=== PATIENT | male | born 1955 | race Caucasian/White ===

== ENCOUNTER 2017-01-29 12:45 | Inpatient (IN) | payer BC ==
[~2017-01-29] VITALS: Ht 177.8 cm; Wt 80.0 kg
[~2017-01-29 12:45] MED LIST: BENZ100C97 PO; BUDE10.22 INH; CODE118S2 PO; HYDR-4246 PO; IBUP-2067 PO; IBUP200C62 PO; MINO100C2 PO; OMEG-15 PO; POLY17PO6 PO; TAMS-1 PO
--- OUTSIDE RECORDS SUMMARY | 2017-01-29 12:50 | XMS REPORT | Continuity of Care Document ---
Author Author [facility] Organization [facility] Address Unknown Phone Unavailable Care Team Providers Care Tobacco Blender Name Role Phone YOMAIRA RED Primary Care Physician [phone] Insurance Providers Guarantor Vinod Francois Address [address] [place] [address] C Email DENIED-16 [facility] Policy Number [id number] Subscriber's Name Tosha Francois Relationship 01 Spouse Chief Complaint and Reason for Visit Chief Complaint Cough,Fever,Flu,URI Reason for Visit Upper respiratory infection with cough and congestion Problems Active Problems Medical Problem Onset Date Status BPH (benign prostatic hyperplasia) Unknown Chronic Lymphoma of small bowel Unknown Acute Mass of small intestine Unknown Resolved Small bowel obstruction Unknown Resolved Past Problems Medical Problem Onset Date Dehydration Unknown Ileus Unknown Partial obstruction of small intestine Unknown Partial small bowel obstruction Unknown Upper respiratory infection with cough and congestion Unknown Medications Current Home Medications Medication Dose Units Route Directions Days Qty Instructions Start Date Benzonatate (Tessalon Perle) 100 Mg Capsule 100 Mg Oral Every 8 Hours for Cough 14 Days [address] David Brandon [employer] [facility] [address] [phone] 01/05/17 Budesonide/Formoterol Fumarate (Symbicort 80-4.5 Mcg Inhaler) 60 Puff/Inhaler Inhaler 2 Puff Inhalation Twice A Day as needed for Dyspepsia 10.2 Gram 09/02/16 Hydrocodone/Acetaminophen (Hemphill 5-325 Tablet) 5-325 Tablet 1-2 Tab Oral Every 5 Hours as needed for Pain 25 Tablet 10/22/16 Ibuprofen 200 Mg Capsule 2 Cap Oral Every 4 Hours as needed for Pain 10/15/16 Ibuprofen 600 Mg Tablet 600 Mg Oral Every 6 Hours as needed for Pain 10 Days 40 Tablet 10/22/16 Minocycline Hcl 100 Mg Capsule 100 Mg Oral Twice A Day 10 Days [address] David Brandon [employer] [facility] [address] [place] [address] 01/05/17 Nallen-3/Dha/Epa/Fish Oil (Fish Oil 500 Mg Softgel) 1 Each Capsule 1 Cap Oral Daily 10/15/16 Polyethylene Glycol 3350 (Miralax) 17 Gm Powd.pack 1 Packet Oral Daily 30 Packet 10/22/16 Promethazine Hcl/Codeine (Promethazine-Codeine Syrup) 118 Ml Syrup 5 Ml Oral Every Night Prn as needed for Cough 10 Days [address] David Brandon [employer] [facility] [address] [place] [address] 01/05/17 Tamsulosin Hcl (Flomax) 0.4 Mg Capsule 0.4 Mg Oral Bedtime Take 1 capsule, by mouth, one time a day at BEDTIME. 09/02/16 Past Home Medications Medication Directions Ordered Status Hydrocodone/Acetaminophen (Hemphill 5-325 Tablet) 5-325 Tablet, 1-2 Tab Oral Four Times Daily as needed for Pain 09/28/16 Discontinued Minocycline Hcl 100 Mg Capsule, 100 Mg Oral Twice A Day 01/05/17 Discontinued Social History Social History Problem Response Recorded Date/Time Onset Date Status Chewing Tobacco Status No 02/08/2013 12:29am Not Applicable Not Applicable Hx Substance Use No 10/17/2016 9:54am Not Applicable Not Applicable Hx Alcohol Use No 10/17/2016 9:54am Not Applicable Not Applicable Has the pt used tobacco in the last 12 months No 10/17/2016 9:54am Not Applicable Not Applicable Hospital Discharge Instructions No hospital discharge instructions. Plan of Care Discharge Date 01/05/17 5:05pm Disposition 01 DISCHARGED HOME, SELF-CARE Condition at Discharge Stable Instructions/Education Provided Fever in Adults (ED) Upper Respiratory Infection (ED) Acute Cough (ED) Prescriptions See Medication Section Referrals YOMAIRA RED Esther Address: [address] [address] Additional Instructions/Education Take minocycline as directed. Use promethazine with codeine at bedtime as needed for cough congestion. Take Tessalon Perles during daytime as needed for cough. Treat fevers as needed. Follow with primary care provider or if symptoms are worsening go to the emergency department. Functional Status No functional status results. Allergies, Adverse Reactions, Alerts Allergen Type Severity Reaction Status Last Updated NKDA Allergy Unknown Active 01/05/17 Immunizations Query Response on File Recorded Date/Time Hx Influenza Vaccination No 10/17/16 9:54am Hx Pneumococcal Vaccination No 10/17/16 9:54am Hx Influenza Vaccination No 10/17/16 9:54am Hx Tetanus Diptheria No 02/08/13 12:29am Influenza Vaccine Hx NONE 01/05/17 4:22pm Vital Signs Acute Vital Signs Vital Response Date/Time Temperature (Fahrenheit) 101.6 deg F (96.8 - 99.1) 01/05/2017 4:24pm Temperature (Calculated Celsius) 38.03194 degrees C (36.0 - 37.3) 01/05/2017 4:24pm Temperature Source Oral 10/22/2016 3:17pm Pulse Rate (adult) 104 bpm (60 - 100) 01/05/2017 4:24pm Respiratory Rate 16 breaths/min (10 - 20) 10/22/2016 3:17pm O2 Sat by Pulse Oximetry 95 % (90 - 100) 01/05/2017 4:24pm Oxygen Delivery Method Room Air 10/22/2016 3:17pm Oxygen Delivery Method Nasal Cannula 10/18/2016 4:13pm Oxygen Flow Rate 2.00 L/min 10/20/2016 3:14am Blood Pressure 118/71 mm Hg 01/05/2017 4:24pm Blood Pressure Source Automatic Cuff 10/22/2016 3:17pm Height (Feet) 5 feet 10/22/2016 9:46am Height (Inches) 69.20 inches 01/05/2017 4:24pm Weight (Kilograms) 89.300 kg 01/05/2017 4:24pm Body Mass Index (BMI) 28.0 01/05/2017 4:24pm Results Laboratory Results Test Name Result Units Flags Reference Collection Date/Time Result Date/ Time Comments White Blood Count 6.3 T/MM3 4.5-11.0 11/12/2016 11:11/12/2016 11: 29am Red Blood Count 4.81 M/MM3 4.50-5.90 11/12/2016 11:11/12/2016 11: 29am Hemoglobin 14.7 GM/DL 13.5-17.5 11/12/2016 11:11/12/2016 11:29am Hematocrit 45.1 % 41-53 11/12/2016 11:11/12/2016 11:29am Mean Corpuscular Volume 93.8 UM3 80-100 11/12/2016 11:11/12/2016 11:29am Mean Corpuscular Hemoglobin 30.6 UUG 26-34 11/12/2016 11:2016 11:29am Mean Corpuscular Hemoglobin Concent 32.6 GM/DL 31-37 11/12/2016 11:11/12/2016 11:29am RDW Standard Deviation 42.6 FL 36.9-50.2 11/12/2016 11:11/12/2016 11:29am Platelet Count 448 T/MM3 D H 130-400 11/12/2016 11:11/12/2016 11: 29am Mean Platelet Volume 8.6 UM3 L 9.4-12.4 11/12/2016 11:11/12/2016 11 :29am Neutrophils (%) (Auto) 60.9 % 33-66 11/12/2016 11:11/12/2016 11: 29am Lymphocytes (%) (Auto) 23.7 % 23-45 11/12/2016 11:11/12/2016 11: 29am Monocytes (%) (Auto) 7.0 % 0-9.0 11/12/2016 11:11/12/2016 11:29am Eosinophils (%) (Auto) 7.1 % H 0-4 11/12/2016 11:11/12/2016 11: 29am Basophils (%) (Auto) 1.0 % 0-2 11/12/2016 11:11/12/2016 11:29am Immature Granulocyte % (Auto) 0.3 % 0.0-0.5 11/12/2016 11:2016 11:29am Absolute Neutrophils (auto) 3.8 T/MM3 1.8-7.7 11/12/2016 11:2016 11:29am Absolute Lymphocytes (auto) 1.5 T/MM3 1-4.8 11/12/2016 11:2016 11:29am Absolute Monocytes (auto) 0.4 T/MM3 0-0.8 11/12/2016 11:2016 11:29am Absolute Eosinophils (auto) 0.5 T/MM3 0-0.5 11/12/2016 11:2016 11:29am Absolute Basophils (auto) 0.1 T/MM3 0-0.2 11/12/2016 11:2016 11:29am Absolute Immature Granulocyte (auto 0.02 T/MM3 0.00-0.03 11/12/2016 11: 11/12/2016 11:29am Icterus Index < 2 0-7 11/12/2016 11:11/12/2016 11:26am Chemistry Specimen Hemolysis < 15 0-25 11/12/2016 11:11/12/2016 11:26am 0-25: Specimen Exhibited No Hemolysis. Turbidity < 20 0-20 11/12/2016 11:11/12/2016 11:26am Sodium Level 140 MEQ/L 134-144 11/12/2016 11:11/12/2016 11:26am Potassium Level 4.0 MEQ/L 3.6-5 11/12/2016 11:11/12/2016 11:26am Chloride Level 103 MEQ/L 98-107 11/12/2016 11:11/12/2016 11:26am Carbon Dioxide Level 27 MEQ/L 22-30 11/12/2016 11:11/12/2016 11: 26am Anion Gap 10 MEQ/L 5-15 11/12/2016 11:11/12/2016 11:26am Blood Urea Nitrogen 12.0 MG/DL 9-20 11/12/2016 11:11/12/2016 11: 26am Creatinine 0.8 MG/DL 0.8-1.5 11/12/2016 11:11/12/2016 11:26am BUN/Creatinine Ratio 15 RATIO 6-26 11/12/2016 11:11/12/2016 11: 26am Glomerular Filtration Rate Calc 98 11/12/2016 11:11/12/2016 11 :26am Glucose Level 102 MG/DL 75-110 11/12/2016 11:11/12/2016 11:26am Calculated Osmolality 269 MOSM/KG 261-280 11/12/2016 11:2016 11:26am Calcium Level 9.4 MG/DL 8.4-10.2 11/12/2016 11:11/12/2016 11:26am Total Bilirubin 0.60 MG/DL 0.20-1.30 11/12/2016 11:11/12/2016 11: 26am Alkaline Phosphatase 115 U/L 38-126 11/12/2016 11:11/12/2016 11: 26am Total Protein 7.3 G/DL 6.3-8.2 11/12/2016 11:11/12/2016 11:26am Albumin 4.3 G/DL 3.5-5.0 11/12/2016 11:11/12/2016 11:26am Globulin 3.0 G/DL 2.4-3.6 11/12/2016 11:11/12/2016 11:26am Albumin/Globulin Ratio 1.4 RATIO 1.1-2.2 11/12/2016 11:11/12/2016 11:26am Aspartate Amino Transf (AST/SGOT) 33 U/L 17-59 11/12/2016 11:11/12 11:26am Alanine Aminotransferase (ALT/SGPT) 56 U/L 21-72 11/12/2016 11:03/2017 11:26am Lactate Dehydrogenase 390 U/L 313-618 11/12/2016 11:11/12/2016 11: 26am Fkfc-4-Srrdhtrvqpqfp 2.06 mcg/mL 11/12/2016 11:11/14/2016 9: 39pm Reference Range: 1.21 - 2.70 Test Performed by: [place] [id number] Hockey Player: Vick Verma II, M.D., Ph.D. Beta-2 Microglobulin, S performed at [facility], [address] [place] [address] Tire Adjuster Luci Koch MD Procedures Procedure Status Date Provider(s) Removal of small intestine Completed 10/18/16 MANUEL MARINA MD, FACS, CWS EXCISION OF JEJUNUM, OPEN APPROACH Completed 10/18/16 MANUEL MARINA MD, FACS, CWS Encounters Encounter Location Arrival/Admit Date Discharge/Depart Date Attending Provider Departed Emergency Room [facility] 01/05/17 4:16pm 01/05/17 5: 05pm KAILYN MORRISSEY APRN Registered Clinic [facility] 11/12/16 9:03am BUZZ DENISE MD Discharged Inpatient [facility] 10/18/16 1:36pm 10/22/16 4:08pm MANUEL MARINA FACSS Recent Diagnosis
--- OUTSIDE RECORDS SUMMARY | 2017-01-29 12:52 | XMS REPORT | Continuity of Care Document ---
Author Author [facility] Organization [facility] Address Unknown Phone Unavailable Allergies Active Description Code Type Severity Reaction Onset Reported/Identified Relationship to Patient Clinical Status Yes No Known Allergies NKMA N/A N/A 03/06/2016 Medications Problems Procedures Results Encounters ACCT No. Visit Date/Time Discharge Status Pt. Type Provider Facility Loc./Unit Complaint [id number] 01/14/2017 12:54:00 2016 23:59:00 DIS Outpatient Jasmin Fischer [facility] vomiting, head congestion, ear pressure [id number] 10/30/2016 14:39:00 2016 23:59:00 DIS Outpatient Emmanuel Cruz [facility] STAPLE REMOVAL [id number] 09/25/2016 16:16:00 2015 23:59:00 DIS Outpatient Emmanuel Cruz [facility] DISCUSS SURGICAL PROCEDURE [id number] 09/11/2016 12:55:00 2015 23:59:00 DIS Outpatient Emmanuel Cruz [facility] ONGOING STOMACH PAIN AND CRAMPING [id number] 03/06/2016 17:07:00 2015 23:59:00 DIS Outpatient Bill Griffin [facility] CONGESTION AND SINUS PRESSURE
--- NOTE | 2017-01-29 12:55 | NUR ---
ADMISSION NOTE PATIENT ADMITTED TO IRU UNIT AT 12:55 IN STABLE CONDITION, PATIENT ARRIVED FROM [facility] IN 'S PRIVATE VEHICLE, ADMITTED THROUGH ER REGISTRATION, TRANSPORTED FROM ER TO IRU VIA WHEELCHAIR BY PHYSICAL THERAPY. PATIENT TRANSPORTED WITH ONE ASSIST AND GAIT BELT FROM WC TO BED. PATIENT COOPERATIVE, ALERT, NOT ORIENTED TO PERSON, PLACE OR TIME. PATIENT HAS BELONGINGS, GLASSES AND CLOTHES AT BEDSIDE. PATIENT ARMBAND PLACED, PREVIOUS HOSPITAL ARMBANDS REMOVED. PATIENT DID NOT WANT PATIENTS NEW PCP, DR MARQUEZ, NOTIFIED OF HOSPITAL ADMISSION.
[2017-01-29 13:03] VITALS: Ht 177.8 cm; Wt 80.0 kg
[2017-01-29 13:07] VITALS: BP 116/64; PULSE 70; RESP 18; TEMP 98.3; O2SAT 98
[2017-01-29] MEDS ORDERED: CEFT2VIA IVP (14:25)
[2017-01-29] MEDS ORDERED: CLOT10TR PO (14:25)
[2017-01-29] MEDS ORDERED: SERT25TA5 PO (14:25)
[2017-01-29] MEDS ORDERED: QUET25TA PO (14:25)
[2017-01-29] MEDS ORDERED: ACYC200C PO (14:25)
[2017-01-29] MEDS ORDERED: DOCU-175 PO (14:25)
[2017-01-29] MEDS ORDERED: LEVE500T9 PO (14:25)
[2017-01-29] MEDS ORDERED: FINA5TAB2 PO (14:51)
[2017-01-29] MEDS ORDERED: INSU100C14 SQ (15:23)
--- NOTE | 2017-01-29 15:25 | STEVAL ---
Eval Subjective and History Date/Time of Eval DATE: 01/29/17 TIME: 14:36 Medical Diagnosis SEVERE SEPSIS DUE TO BACTERIAL MENINGITIS, POST CRANIOTOMY Treatment Order: Assessment, Dev./Imp. tx plan Orientations: Person, Alert, Cooperative Primary Complaint: EXPRESSIVE - RECEPTIVE APHASIA, COGNITIVE CHANGES, DYSPHAGIA Pain: No (NOT REPORTED) Date of Onset of Primary Com: 01/15/17 TRANSFER TO IRU 01/29/17 Secondary Complaint: CHRONIC COUGH Prior History of This Problem: No Patient's Goals: NOT EXPRESSED Significant Past Medical Hx: PT WAS HOSPITALIZED FOR SEVERE SEPSIS DUE TO BACTERIAL MENINGITIS WITH FRONTAL SINUSITIS & BONE EROSIONI S/P BILATERAL FRONTAL CRANIOTMY FOR CLEARING OF FRONTAL SINUSES. HE WAS TRANSFERRED TO [facility] ON 01/29/17. PMH:NON-HODGINS LYMPHOMA, SMALL BOWEL LYMPHOMA, BPH, ASTHMA AND CHRONIC COUGH. Medical History Form Reviewed: Yes Residence Type: Private home/apartment Lives With: Spouse Caregiver Status: Yes (SUPPORTIVE) Prior Functional Status: ON [facility] SOFT DIET/REGULAR LIQUIDS AT PREVIOUS HOSPITAL. NOT ALLOWED STRAWS DUE TO SURGERY. Current Functional Status: NO SIGNIFICANT SIGNS OF ASPIRATON ON THIN LIQUIDS AND SOFT DIET WITH CHOPPED MEAT. (NO STRAWS) Education Subject: Diet Person(s) Educated: Patient Instruction Understanding Demo: Education unsuccessful (NODS IN AGREEMENT UNSURE OF FULL UNDERSTANDING.) Education Comment MANAGER IT TRAINING educated patient on reasoning for evaluation. Patient was agreeable to evaluation. Subjective and History Comment: PT'S WAS PRESENT FOR PART OF SESSION. SHE REPORTED THAT HE IS HARD OF HEARING AND NODS HEAD YES TO QUESTIONS. Dysphagia Evaluation Evaluation Location: Bed Evaluation Angle: 90 Tongue Elevation: Minimal Impairment Tongue Lateralization: No Impairment (WFL) Tongue Protrusion: No Impairment (WFL) Tongue Retraction: No Impairment (WFL) Tongue Extension Midline: No Impairment (WFL) Labial Approximation: No Impairment (WFL) Intraoral Air Pressure: No Impairment (WFL) Volitional Cough: Minimal Impairment Palatal Elevation: No Impairment (WFL) Larynx Elevation During Swallo: No Impairment (WFL) Saliva Control: No Impairment (WFL) Oral Peripheral Exam Comment: PT DEMONSTRATED FUNCTIONAL ORAL RANGE OF MOTION. Lip Seal: Adequate-liquid, Adequate-pudding, Adequate-solid Lingual Manipulation: Adequate-liquid (THIN LIQUIDS), Adequate-pudding, Adequate-solid Chewing: Inadequate-solid (MILD DELAY) Oral cavity clear post swallow: Adequate-liquid, Adequate-pudding, Adequate- solid Swallow initiated w/o delay: Adequate-liquid, Adequate-pudding, Inadequate- solid (MILD) Multiple swallows not needed: Adequate-liquid, Adequate-pudding, Inadequate- solid (SECONDARY SWALLOW) Voice clear&dry post swallow: Adequate-liquid, Adequate-pudding, Adequate-solid No cough/throat clear: Inadequate-liquid (MINIMAL COUGH AFTER DRINKING, VOICE DRY), Adequate-pudding, Adequate-solid Assessment/Plan of Care Speech Therapy Impressions: PT DEMONSTRATED FUNCTIONAL ORAL RANGE OF MOTION WITH MODEL. HE RESPONDED WELL TO GESTURES WITH VERBAL DIRECTIONS. PT DRANK THIN WATER WITH NO STRAWS WITH MINIMAL COUGH AFTER DRINKING ON 115 SWALLOWS. HE ATE TURKEY SANDWICH, PEACHES AND ICE CREAM WITH NO S/S OF ASPIRATION. VOICE WAS DRY AND CLEAR AFTER EATING. Site Worker Goal: Pt will maintain nutrition and hydration of the least restrictive diet while demonstrating no s/s of aspiration for 3 consecutive trials. Short Term Goal: Pt will consume a soft diet/chopped meal with thin liquids & NO STRAWS without outward signs of aspiration at bedside in3/3 trials. Pt will demonstrate 3/3 components necessary for a safe swallow as listed from the following: small bites/sips, slow rate & secondary swallow intermittently during meal, alternating solids/liquids. Pt will implement compensatory feeding strategies in3/3 feeding trials/meals with minimal cues to aid recall. ST Treatment Plan: Swallow Retraining, Swallow Precautions, Modified Diet ST Treatment Plan Frequency: five times per week Treatment Plan Duration: three weeks Plan of Care Comment Modified diet/swallow retraining Cognitive/communication evaluation and retraining Recommended Diet: Soft diet/chopped meat and regular liquids NO STRAWS Date of Visit 01/29/17 Time Visit Began: 14:15 Time Visit Ended: 14:45 ST Assess/Plan of Care: ST Treatment Charge: Swallow Eval Minutes of Individual Therapy: 30 ST FIM Comprehension Ability: 2 Maximum Assistance Social Interaction: 2 Maximum Assistance Problem Solvin Total Assistance Memory: 1 Total Assistance Expression Ability: 2 Maximum Assistance Swallowin Moderate Assistance RAAD VARMA MS CCC-MANAGER IT TRAINING Jan 29, 2017 14:39
--- NOTE | 2017-01-29 15:40 | STEVAL ---
Communication Facial symmetry at rest: WFL Facial symmetry with smile: WFL Tone of lips: normal Tongue at rest: normal Tone of tongue: normal Palatal Elevation: normal Basic Oral Peripheral Comment wfl Respiration at rest: normal Speed of respiration at rest: normal Respiration during speech: normal Speed of respiration w/ speech: normal Intelligibility Words: 95% Expression Abilities: Repeats words, Naming objects / pictures Verbal Expression Comment Patient named objects and described their function in 1-2 words. Speech was intelligible but limited to simple 1-2 words. Spontaneous Speech Fluency: single words Confrontation Naming: Yes Automatic Speech: Yes Repeat oo-ee: Yes (delayed) Repeat pa-pa: Yes Repeat la-la: Yes Ability to repeat ka-la: Yes Ability to repeat p-t-k: Yes Repeat initial consonants: Yes Repeat consonant clusters: No Read 5 words: Yes (large print sentences) Writes/sign name: Yes Social Interaction: Responds to others Visual Organization: Wears glasses/contacts Assessment/Plan of Care Speech Therapy Impressions: Aphasia Language Performance Scale administered. Pt demonstrated 4/10 in listening comprehension. Verbal expression was 6/10 accuracy. Pt named objects and formulated 1-2 word phrase. Reading comprehension was within 9/10 using large print words. Written expression was not assess. Pt could print his first name. Intermediate Goals: 1. Pt will communicate needs/wants in a variety of sessions 2. Pt will demonstrated understanding of basic conversation. Short Terms Goals: 1. Pt will name words independently with 9/10 accuracy. 2. Pt will formulate phrases/sentences to describe activity with 9/10 accuracy. 3. Pt will follow one step verbal direction with 9/10 accuracy. 4. Pt will read short paragraph and answer questions with 9/[address] Treatment Plan: Communication Retraining, Swallow Retraining ST Treatment Plan Frequency: five times per week Treatment Plan Duration: three weeks Plan of Care Comment Swallow and Communication retraining Date of Visit 01/29/17 Time Visit Began: 14:45 Time Visit Ended: 15:00 ST Assess/Plan of Care: ST Treatment Charge: Speech Eval Minutes of Individual Therapy: 15 RAAD VARMA MS CCC-AGENCY SERVICE REPRESENTATIVE Jan 29, 2017 15:29
[2017-01-29] MEDS ORDERED: INHALER ASSIST DEVICE (Optichamber) MC ONE (16:45)
[2017-01-29] MEDS ORDERED: PRN ORDERS MC (17:30)
[2017-01-29] MEDS: CLOTRIMAZOLE 10 MG TROCHE PO SCH ×2 (18:30→22:47)
[2017-01-29] MEDS: ACYCLOVIR 200 MG CAPSULE PO SCH ×2 (18:30→22:47)
[2017-01-29] MEDS: POLYETHYL.GLYCOL 3350 PACKET 17gm PO SCH (18:33)
--- NOTE | 2017-01-29 19:00 | NUR ---
SHIFT SUMMARY PATIENT ALERT AND COOPERATIVE, NOT ORRIENTED TO PERSON OR PLACE. PATIENT NODDED HEAD YES WHEN ASKED IF HIS NAME WAS VINOD, AND ALSO NODDED HEAD YES WHEN ASKED IF HIS NAME WAS KATHERINE. PATIENT SOMETIMES GIGGLED WHEN ASKED A QUESTION. OCCASIONALLY SAID A SENTENCE, BUT GENERALLY NOT IN RESPONSE TO A QUESTION. PATIENT ATE LUCH AND DINNER WITHOUT PROBLEM, MAINTAINING NO STRAWS. NO C/O PAIN, NO GRIMACING OR MOANING NOTED. PATIENT'S WAS AT BEDSIDE AT ADMISSION AND IN AFTERNOON. VITALS STABLE. PT, OT AND SPEECH EVALUATED PATIENT. WILL CONT TO MONITOR.
[2017-01-29] MEDS: CEFTRIAXONE 2 G in NORMAL SALINE 100 ML IV SCH (20:55)
[2017-01-29] MEDS: DOCUSATE SODIUM 100 MG CAPSULE PO SCH (20:59)
[2017-01-29] MEDS: TAMSULOSIN 0.4 MG CAPSULE PO SCH (20:59)
[2017-01-29] MEDS: LEVETIRACETAM 500 MG TABLET PO SCH (20:59)
[2017-01-29 21:00] VITALS: BP 122/66; PULSE 76; RESP 16; TEMP 98.6; O2SAT 99
[2017-01-29] MEDS ORDERED: CEFTRIAXONE 2 GM IV SCH (21:00)
--- NOTE | 2017-01-30 01:46 | NUR ---
STATUS. PT HAS BEEN AWAKE AND ALERT TO SELF. PT SEEMS TO BE LIMITED VERBALLY. WHEN ASKED A QUESTION, PT NODS HEAD YES. PT DID ASKED "WHAT TIME IS IT?" AND THEN REPEATS ANSWER TO NURSE. WHEN NURSE ASKED IF HE WATCHES TV, PT ASKED "WHERE IS THE REMOTE?". PT RESTING QUIETING IN BED. CHAN CATH TO DRAINAGE.
--- NOTE | 2017-01-30 04:30 | NUR ---
Chart Check 24 hour chart check completed
[2017-01-30] MEDS: CLOTRIMAZOLE 10 MG TROCHE PO SCH ×5 (05:43→22:43)
[2017-01-30] MEDS: ACYCLOVIR 200 MG CAPSULE PO SCH ×5 (05:43→22:42)
--- NOTE | 2017-01-30 06:51 | NUR ---
SUMMARY. PT AWAKENS EASILY FOR CARES. RT PICC 3 LUMEN FLUSHES WELL. PT REPOSITIONING SELF IN BED.CHAN CATH TO DEPEND DRAINAGE. SCALP SALOMÓN AND ABD SALOMÓN LIBERTY. D/I, WELL APPROXIMATED. PT WILL STATE SENTENCE FOR SOMETHING HE WANTS.
[2017-01-30 08:00] VITALS: BP 99/61; PULSE 121; RESP 16; TEMP 99.5; O2SAT 94
[2017-01-30 08:20] VITALS: PULSE 89
[2017-01-30] MEDS: CEFTRIAXONE 2 G in NORMAL SALINE 100 ML IV SCH ×2 (08:41→21:34)
[2017-01-30] MEDS: LEVETIRACETAM 500 MG TABLET PO SCH ×2 (08:42→21:33)
[2017-01-30] MEDS: SERTRALINE 25 MG TABLET PO SCH (08:42)
[2017-01-30] MEDS: TAMSULOSIN 0.4 MG CAPSULE PO SCH ×2 (08:42→21:33)
[2017-01-30] MEDS: DOCUSATE SODIUM 100 MG CAPSULE PO SCH ×2 (08:42→21:33)
[2017-01-30] MEDS ORDERED: PNEUMOCOCCAL 13 VACCINE 0.5 ML SYRINGE IM ONE (09:15)
[2017-01-30] MEDS: BUDESONIDE/FORMOTEROL 80/4.5mcg INHALER ORAL INH PRN (09:43)
--- NOTE | 2017-01-30 10:45 | DI ---
Indication: ITS.REASON: PICC confirmation PROCEDURE: CHEST 1 VIEW: Encounter: Initial Comparison: CT chest dated November 12, 2016 and chest x-ray dated September 02, 2016 Findings: New right PICC line in place with the tip projecting over the lower SVC. Lungs are clear. No pleural effusion or pneumothorax. The heart size, pulmonary vascularity and mediastinal contours are within normal limits. Impression: Right PICC line projects in appropriate position. .
--- NOTE | 2017-01-30 11:26 | CONSPD ---
TAWANNA MORALES V RETAIL INVENTORY CONTROL CLERK 01/30/17 1116: Consultation Info Date DATE: 01/30/17 TIME: 11:11 Date of Consultation: Jan 30, 2017 Attending Physician: Deep Reason for Consultation: bacterial meningitis with osteomyelitis HPI - Adult Date DATE: 01/30/17 TIME: 11:11 General Chief Complaint: bacterial meningitis with osteomyelitis History of Present Illness Patient is a 61-year-old male who is being treated in the outpatient setting for a sinus infection at the beginning of January. He was initially placed on minocycline, however, did not have improvement. He followed up with his primary care provider on January 14 and was started on Augmentin. On 01/16/17. He was found unresponsive and taken by EMS to [facility]. Initially a stroke alert was activated. Given patient's findings of bilateral upper extremity contractions, right-sided facial drooping and unequal pupils. Patient was intubated at this time and a lumbar puncture was obtained which was found to have gross purulence purulent cerebral spinal fluid leak leading to the diagnosis of pneumococcal bacterial meningitis. He underwent a bifrontal craniotomy for cranialization of frontal sinuses and harvest of abdominal fat graft on 01/19/17 while under the care of Dr. White neurosurgeon at [facility]. Dr. Sotomayor with infectious disease did follow patient for antibiotic management. Patient is to continue on ceftriaxone twice a day through 01/30/17. He may then decrease to daily through 02/27/17. His severe sepsis continued to improve. However, he continues to have significant weakness with some residual hearing deficits. Patient was accepted and admitted to the inpatient rehabilitation unit last evening on 01/29/17 ongoing recovery to improve strength and function. 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 Small bowel resection- revealed non-Hodgkin's lymphoma mass. 10/2016 (John) Current Medications Home Meds Reported Medications Insulin Lispro (Humalog) 100 Unit/1 Ml Cartridge, 1 DOSE SQ, VIAL sliding scale insulin per [place] 01/29/17 Finasteride (Proscar) 5 Mg Tablet, 1 TAB PO DAILY, TAB 01/29/17 Clotrimazole (Clotrimazole) 10 Mg Donald, 1 TAB PO 5XD, #35 TAB 01/29/17 Docusate Sodium (Docusate Sodium) 100 Mg Capsule, 1 CAP PO BID, #30 CAP 01/29/17 Sertraline (Sertraline) 25 Mg Tablet, 25 MG PO DAILY, TAB 01/29/17 Quetiapine Fumarate (Seroquel) 25 Mg Tablet, 25 MG PO HS Y for PRN ORDERS, TAB Take 1 tablet, by mouth, once a day at bedtime. 01/29/17 Levetiracetam (Keppra) 500 Mg Tablet, 1 TAB PO BID, #180 TAB 3 Refills 01/29/17 Acyclovir (Acyclovir) 200 Mg Capsule, 1 CAP PO 5XD, #50 CAP 01/29/17 Ceftriaxone Sodium (Ceftriaxone) 2 Gm Vial, 2 GM IVP Q12HR 01/29/17 Budesonide/Formoterol Fumarate (Symbicort 80-4.5 Mcg Inhaler) 60 Puff/Inhaler Inhaler, 2 PUFF INH BID Y for DYSPEPSIA, #10.2 GM 5 Refills 09/02/16 Tamsulosin HCl (Flomax) 0.4 Mg Capsule, 0.4 MG PO BID, CAP Take 1 capsule, by mouth, twice daily 09/02/16 Allergies: Coded Allergies: NKDA (Verified Allergy, Unknown, 01/05/17) Family History Family History: Unknown Social History Smoking Status: Unknown if ever smoked Does patient use chewing tobac: No Second Hand Exposure: No Substance Use Type: does not use Alcohol Intake: none Marital Status: Sexuality: female partner Housing: house Advance Directives: No DPOA for Healthcare Only Social History Comments PCP Dr Alejandro Chauhan Review of Systems Unable to Obtain ROS Due to: clinical condition Comments He denies all ROS on examination Comments hearing loss Male: retention All Other Systems All Other Systems: Reviewed (remainder of 10-point ROS Neg.) Physical Exam General General Nourishment: well nourished, well developed Vital Signs Vital Signs Date Time Temp Pulse Resp B/P Pulse Ox O2 Delivery O2 Flow Rate FiO2 01/30/17 09:49 16 01/30/17 09:49 90 01/30/17 08:00 99.5 99/61 94 Room Air Height (Feet): 5 Height (Inches): 10.00 Eyes Brief: FOUND: EOMI, PERRL Comments Hearing loss ENMT Brief: FOUND: mucosa moist Respiratory Brief: FOUND: clear all ling, equal bilaterally, NOT FOUND: wheezes Cardiovascular (brief) Cardiac Brief: FOUND: regular rate, regular rhythm, NOT FOUND: murmur, pedal edema Abdomen (brief) Abdominal Brief: FOUND: BS normo active x4, soft, NOT FOUND: distended, tender Integumentary (brief) Integumentary Brief: FOUND: dry, pink, warm Neurologic (brief) Neurological Brief: FOUND: cranial 2-12 intact, motor (equal x 4 ext), sensory (intact to all 4 ext) Neurologic RN Documented GCS Eye Opening: Verbal: Motor: Total: Impression/Recommendation Problems: (1) Pneumococcal meningitis Status: Acute (2) Osteomyelitis Status: Acute Qualifiers: Osteomyelitis location: other site Assessment & Plan: facial bones (3) Urinary retention Status: Acute Assessment & Plan: Parker replaced 01/26 (4) Asthma Status: Chronic (5) Non Hodgkin's lymphoma Status: Chronic Qualifiers: Non-Hodgkin lymphoma type: B-cell Lymphoma site: unspecified region (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 Then decrease to daily through . Appreciated ongoing ID management as per Dr Sotomayor Acute hearing loss is likely secondary to acute meningitis. This may be a chronic defect. EEG completed at [place] did revel some abnormalities, however not seizures. He was placed on Keppra. Continue with urinary cath for urinary retention. is hesitant to have this removed because it was very difficult to replace it. All oncology treatments currently on hold. He has been under the care of Dr Patel. Will check CBC and BMP to follow basic blood counts, renal function and electrolytes. The hospitalist services will continue to follow pt for medical management of existing co-morbidities. At time of discharge medical care will return PCP SHANIA Magallanes MD 01/30/172056: Past Medical History Current Medications Home Meds Reported Medications Insulin Lispro (Humalog) 100 Unit/1 Ml Cartridge, 1 DOSE SQ, VIAL sliding scale insulin per rebecca 01/29/17 Finasteride (Proscar) 5 Mg Tablet, 1 TAB PO DAILY, TAB 01/29/17 Clotrimazole (Clotrimazole) 10 Mg Donald, 1 TAB PO 5XD, #35 TAB 01/29/17 Docusate Sodium (Docusate Sodium) 100 Mg Capsule, 1 CAP PO BID, #30 CAP 01/29/17 Sertraline (Sertraline) 25 Mg Tablet, 25 MG PO DAILY, TAB 01/29/17 Quetiapine Fumarate (Seroquel) 25 Mg Tablet, 25 MG PO HS Y for PRN ORDERS, TAB Take 1 tablet, by mouth, once a day at bedtime. 01/29/17 Levetiracetam (Keppra) 500 Mg Tablet, 1 TAB PO BID, #180 TAB 3 Refills 01/29/17 Acyclovir (Acyclovir) 200 Mg Capsule, 1 CAP PO 5XD, #50 CAP 01/29/17 Ceftriaxone Sodium (Ceftriaxone) 2 Gm Vial, 2 GM IVP Q12HR 01/29/17 Budesonide/Formoterol Fumarate (Symbicort 80-4.5 Mcg Inhaler) 60 Puff/Inhaler Inhaler, 2 PUFF INH BID Y for DYSPEPSIA, #10.2 GM 5 Refills 09/02/16 Tamsulosin HCl (Flomax) 0.4 Mg Capsule, 0.4 MG PO BID, CAP Take 1 capsule, by mouth, twice daily 09/02/16 Allergies: Coded Allergies: NKDA (Verified Allergy, Unknown, 01/05/17) Impression/Recommendation Problems: (1) Pneumococcal meningitis Status: Acute (2) Osteomyelitis Status: Acute Qualifiers: Osteomyelitis location: other site Assessment & Plan: Posterior table of the right frontal sinus and posterior wall of the maxilla; bifrontal craniotomy with cranialization of the frontal sinuses on 01/[address] 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 I reviewed the chart, the patient's history, and the RETAIL INVENTORY CONTROL CLERK's documented findings as above. We discussed and formulated the assessment and plan as above with additions as below: Mr. Blackburn presented with acute bacterial meningitis and acute respiratory failure on 01/16 resulting in intubation and hospitalization at [place]. Infectious course is well outlined in Dr. Galloway's note and will not be reiterated here. The patient has sustained significant hearing loss. His feels is recovering well from recent craniotomy but has some generalized weakness prompting transfer to IRU. She indicates he has been walking a little. Patient indicated minor discomfort referring to his head but no acute concerns. Bifrontal craniotomy with j carlos present is clean and dry. Patient is hard of hearing and defers to his the majority of the time but will occasionally respond to questions verbally. Respirations are nonlabored with good airflow and clear lung ling Regular cardiac rhythm, no murmur appreciated. Abdomen soft, right upper quadrant incision clean. Moving all extremities symmetrically with mild generalized tenderness. Chest x-ray reviewed by myself demonstrating no acute cardiopulmonary disease. Persistent leukocytosis with white count of 13.5, mild thrombocytosis-likely reactive. Continue Rocephin 2 g daily for an additional 4 weeks as per recommendations of Dr. Sotomayor. Aggressive PT/OT. Speech therapy will additionally worked with reported difficulty swallowing. Will attempt to clarify indication for Keppra-may be post craniotomy rather than do the EEG abnormalities which were likely nonspecific due to meningitis. Recommendation Old records reviewed, chest x-ray reviewed by myself, laboratory data reviewed. TAWANNA MORALES APRN Jan 30, 2017 11:16 SHANIA OBREGON MD Jan 30, 2017 20:57
[2017-01-30] MEDS: POLYETHYL.GLYCOL 3350 PACKET 17gm PO SCH (11:30)
[2017-01-30] MEDS ORDERED: PNEUMOCOCCAL VAC. ADMIN. CHARGE INJ ONE (11:37)
--- NOTE | 2017-01-30 11:54 | CONSF ---
DATE OF CONSULTATION January 30, 2017 CHIEF COMPLAINT Infectious disease consultation was requested by Dr. Cano for antibiotic recommendations. HISTORY OF PRESENT ILLNESS Mr. Blackburn is a 61-year-old man with a history of non-Hodgkin lymphoma on chemotherapy under the care of Dr. Patel who was having symptoms of upper respiratory infection including sinus pain and congestion early in January. He was seen in Urgent Care and started on minocycline. Then he was seen by his primary care physician with continued symptoms and was given Augmentin for a possible inner ear infection. His reported that he had dizziness, nausea and vomiting and fever up to 103 and then on the day of his admission his found him with significantly decreased responsiveness and called 9-1-1. He was hospitalized at [facility] on January 16 and he was intubated upon arrival to the emergency department. He was obtunded. His temperature was 102.9. He had a lumbar puncture which showed grossly purulent spinal fluid. He was started on multiple antibiotics. His CSF actually had 43,520 white cells in it. The CSF glucose was undetectable and the CSF protein was 614. He was started on vancomycin, ceftriaxone and ampicillin. His Strep pneumo antigen on the spinal fluid was positive. His blood cultures were negative. However, the spinal fluid did finally grow some Strep pneumo on culture. This was found to be resistant to penicillin but susceptible to ceftriaxone. He was continued on ceftriaxone 2 g IV q.12h. He did receive dexamethasone initially as well. He had an MRI and CT imaging of his head which showed erosion of the posterior table of the right frontal sinus. He underwent bifrontal craniotomy for cranialization of frontal sinuses with harvest of abdominal fat graft on January [address] White. He improved and he was extubated. He has not been speaking very much although it appears that he is having significant hearing loss. Last week he developed a significant outbreak of herpes simplex labialis with significant ulcerations noted on his tongue, on the soft palate and some around his nose as well. He has been treated with acyclovir and continues on that. He is able to tolerate a mechanical soft diet. He was transferred to [facility] yesterday for further rehabilitation and care. PAST MEDICAL HISTORY Significant for non-Hodgkin's lymphoma followed by Dr. Patel. His reports that he has received seven out of eight planned chemotherapy treatments. He has BPH. PAST SURGICAL HISTORY He has had small bowel resection. He is status post vasectomy. He has had a prostate biopsy and a colonoscopy. FAMILY HISTORY Reviewed and is noncontributory. SOCIAL HISTORY He is . No history of tobacco or alcohol use. He has not had a pneumococcal vaccination according to his . REVIEW OF SYSTEMS Not obtainable from the patient as he is not speaking very much. ALLERGIES No known drug allergies. CURRENT MEDICATIONS Ceftriaxone 2 g IV q.12h. through January 30, then ceftriaxone 2 g IV daily. Acyclovir 200 mg p.o. five times a day. Clotrimazole troches. Sertraline. Colace. Keppra. Seroquel. Symbicort inhaler. PHYSICAL EXAM Temperature 98.6. Blood pressure is 122/66. Pulse 76. Respirations 16. Oxygen saturation 99% on room air. His height is 70 inches. Weight is 81 kg. GENERAL: He appears comfortable and is in no acute distress. He was examined when he was seated at the breakfast table this morning. HEENT: Normocephalic. He has a large craniotomy incision going from ear to ear over the top of his head with j carlos in place. His pupils appear to be equal and reactive. Extraocular movements are intact. Oropharynx is still notable for some ulcerations on the soft palate and the tip of his tongue and some herpes simplex lesions on the right lower lip. Dentition is fair. NECK: Appears to be supple. HEART: Regular rate and rhythm. No murmurs noted. LUNGS: Clear to auscultation bilaterally anteriorly. ABDOMEN: Soft and nontender. He has bowel sounds present. No guarding or rebound. EXTREMITIES: No joint effusions are noted. No significant peripheral edema is noted. He has a PICC line in the right upper extremity without any surrounding redness or edema. SKIN: No rashes. His cranial incision is intact. There is a very small amount of ischemic appearing skin right along the incision, but this appears to be quite minimal. There is no significant redness or drainage along the incision. He does have the lesions on the lip as noted above. NEURO EXAM: Appears to be grossly nonfocal. He appears to be hard of hearing. He does say yes and a few words in short sentences and he follows commands. He appears to be able to move all four extremities. IMPRESSION 1. Sepsis secondary to pneumococcal meningitis, resistant to penicillin. 2. Sinusitis of the frontal and maxillary sinuses with bony erosion of the posterior wall of the maxilla and involving the inner table of the skull adjacent to the right frontal sinus, status post bifrontal craniotomy for cranialization of frontal sinuses with harvest of abdominal fat graft on January 19, 2017. 3. Altered mental status. 4. Non-Hodgkin's lymphoma of the small bowel, status post resection October 2016 and undergoing treatment with rituximab currently with Dr. Patel in [place]. 5. Benign prostatic hypertrophy. 6. Acute respiratory failure, resolved. 7. Herpes labialis with significant ulcerations noted on the soft palate and tongue, on acyclovir since January 23. 8. Dysphagia. 9. Hearing loss, most likely secondary to meningitis. RECOMMENDATIONS I would continue ceftriaxone q.12h. through January 30, which is later today. This will complete two weeks of treatment at meningitis doses. I would then change the ceftriaxone to 2 g IV daily through February 27 to complete a 6-week course for osteomyelitis of the cranium. I would recommend monitoring CBC with differential and a BMP every Saturday while he is on the IV antibiotics. I would continue with oral acyclovir for now since he continues to have lesions. He might need a prolonged course. Thank you for allowing me to participate in the care of this patient. SEGUNDO
--- NOTE | 2017-01-30 12:19 | HPPDOC ---
HPI Date DATE: 01/30/17 TIME: 12:14 General Chief Complaint: bacterial meningitis with osteomyelitis History of Present Illness 61 yo male with progressive sinusitis which lead to osteomyelitis and ultimately abscess in frontal lobes. Infection cultured and pneumococcus was grown. He has hearing loss and required bilat frontal craniotomy. He is also being treated for Nonhodgkins Lymphoma. Unable to maintain adl's due to weakness and communication issues. Requiring IRU admission for PT,OT adn Speech. 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 Small bowel resection- revealed non-Hodgkin's lymphoma mass. 10/2016 (John) Current Medications Home Meds Reported Medications Insulin Lispro (Humalog) 100 Unit/1 Ml Cartridge, 1 DOSE SQ, VIAL sliding scale insulin per rebecca 01/29/17 Finasteride (Proscar) 5 Mg Tablet, 1 TAB PO DAILY, TAB 01/29/17 Clotrimazole (Clotrimazole) 10 Mg Donald, 1 TAB PO 5XD, #35 TAB 01/29/17 Docusate Sodium (Docusate Sodium) 100 Mg Capsule, 1 CAP PO BID, #30 CAP 01/29/17 Sertraline (Sertraline) 25 Mg Tablet, 25 MG PO DAILY, TAB 01/29/17 Quetiapine Fumarate (Seroquel) 25 Mg Tablet, 25 MG PO HS Y for PRN ORDERS, TAB Take 1 tablet, by mouth, once a day at bedtime. 01/29/17 Levetiracetam (Keppra) 500 Mg Tablet, 1 TAB PO BID, #180 TAB 3 Refills 01/29/17 Acyclovir (Acyclovir) 200 Mg Capsule, 1 CAP PO 5XD, #50 CAP 01/29/17 Ceftriaxone Sodium (Ceftriaxone) 2 Gm Vial, 2 GM IVP Q12HR 01/29/17 Budesonide/Formoterol Fumarate (Symbicort 80-4.5 Mcg Inhaler) 60 Puff/Inhaler Inhaler, 2 PUFF INH BID Y for DYSPEPSIA, #10.2 GM 5 Refills 09/02/16 Tamsulosin HCl (Flomax) 0.4 Mg Capsule, 0.4 MG PO BID, CAP Take 1 capsule, by mouth, twice daily 09/02/16 Allergies: Coded Allergies: NKDA (Verified Allergy, Unknown, 01/05/17) Family History Family History: htn Social History Does patient use chewing tobac: No Second Hand Exposure: No Substance Use Type: does not use Alcohol Intake: none Advance Directives: No DPOA for Healthcare Only Review of Systems ENMT Ears: REPORTS: see HPI Hearing: REPORTS: see HPI Balance: see HPI Sinuses: FOUND: see HPI Musculoskeletal General: see HPI Neurological General: see HPI All Other Systems All Other Systems: Reviewed Physical Exam General General Nourishment: well nourished, well developed, adult General Body Habitus: well groomed Vital Signs Vital Signs Date Time Temp Pulse Resp B/P Pulse Ox O2 Delivery O2 Flow Rate FiO2 01/30/17 09:49 16 01/30/17 09:49 90 01/30/17 08:00 99.5 99/61 94 Room Air Height (Feet): 5 Height (Inches): 10.00 Eyes Brief: FOUND: EOMI, PERRL ENMT Brief: FOUND: TM clear Comments very [place] Neck Brief: FOUND: adenopathy (cervical nodes, ant and post bilat), NOT FOUND: carotid bruits, thyromegaly Respiratory Brief: FOUND: clear all ling, equal bilaterally Cardiovascular (brief) Cardiac Brief: FOUND: regular rate, regular rhythm Capillary Refill: <2 sec Abdomen (brief) Abdominal Brief: FOUND: BS normo active x4, soft, NOT FOUND: tender Neurologic RN Documented GCS Eye Opening: Verbal: Motor: Total: Assessment & Plan Problems: (1) Myopathy Assessment & Plan: PT and OT to work with patient to increase strength and stamina. (2) Hearing loss (3) Pneumococcal meningitis Assessment & Plan: medical to manage (4) Urinary retention Status: Acute Assessment & Plan: medical to manage, watch chang cath (5) Non Hodgkin's lymphoma Status: Chronic Code Status Full Code Interventions to Obtain Goals PT Treatment Plan: Therapeutic Exercise, Gait Training, Functional Activities , Patient/Family Education, Balance/Proprioception OT Treatment Plan: ADL's (basic care), Cognitive Skills Develop., Ther. Exercise for ADL's, UE Functional Training, Balance Training, Pt./Family Education, IADL's ST Treatment Plan: Communication Retraining, Swallow Retraining Hospital Course Summary Disclaimer The hospital course summary below is not to be considered part of the above Progress Note. SHEYLA BARAHONA MD Jan 30, 2017 12:17
--- NOTE | 2017-01-30 12:21 | IRU24PDOC ---
24 Hour Post Admission Eval Relevant Changes Relevant Changes: No I have reviewed the patient's information and concur with the finding and results of the pre-admission screen. Certification I certify the patient for rehabilitation. Patient Condition Prior Medical Conditions: (1) Myopathy Additional Information: PT and OT to work with patient to increase strength and stamina. (2) Hearing loss (3) Pneumococcal meningitis Additional Information: medical to manage (4) Urinary retention Status: Acute Additional Information: medical to manage, watch chang cath (5) Non Hodgkin's lymphoma Status: Chronic Current Medical Conditions: (1) Myopathy Additional Information: PT and OT to work with patient to increase strength and stamina. (2) Hearing loss (3) Pneumococcal meningitis Additional Information: medical to manage (4) Urinary retention Status: Acute Additional Information: medical to manage, watch chang cath (5) Non Hodgkin's lymphoma Status: Chronic Prior Functional Condition Lives With: Spouse Residence Type: Private home/apartment Assistive Devices: Front Wheeled Walker Prior Functional Status: Indep. at home or school Current Functional Status Patient Requirements * Patient has been determined to have significant functional limitations requiring at least two therapy disciplines. * Rehabilitation medical practitioner will provide admission approval, assessment and oversight and program coordination at least daily. * Intensive rehabilitative nursing services on site and available 24 hours a day. * The treatment plan will be developed within 24 hours of admission. * Interdisciplinary and goal oriented treatment by professional nursing, social media editor, and rehabilitation therapist. * Interdisciplinary team meeting weekly inclusive of ongoing comprehensive discharge planning. First team meeting by day seven. Weekly meetings to follow. * Rehab Physician is the team meeting leader. * Pharmacy and diagnostic services will be available. * Ongoing comprehensive rehab program with at least 2 disciplines and greater than or equal to 3 hours a day, 5 days a week. Speech Therapy Minutes: 60 Physical Therapy Minutes: 60 Occupational Therapy Minutes: 60 Therapy The patient is to receive therapy at least 5 days a week. Current Functional Status: Using assistive device PT Treatment Plan: Therapeutic Exercise, Gait Training, Functional Activities , Patient/Family Education, Balance/Proprioception Treatment Plan Frequency: five times per week Treatment Plan Duration: three weeks Plan of Care Comment: 6x/wk for 1st wk; 5x/wk for 2nd and 3rd wks. OT Treatment Plan: ADL's (basic care), Cognitive Skills Develop., Ther. Exercise for ADL's, UE Functional Training, Balance Training, Pt./Family Education, IADL's OT Treatment Plan Frequency: five times per week OT Treatment Plan Duration: three weeks ST Treatment Plan: Communication Retraining, Swallow Retraining ST Treatment Plan Frequency: five times per week Treatment Plan Duration: three weeks ROM Comment: B LE ROM is WFL both actively and passively; see OT eval for UE ROM Muscle Weakness Location: Left Lower Extremity, Right Lower Extremity Complication/Comorbidities Patient Complication Risk: (1) Myopathy Comments: PT and OT to work with patient to increase strength and stamina. (2) Hearing loss (3) Pneumococcal meningitis Comments: medical to manage (4) Urinary retention Status: Acute Comments: medical to manage, watch chang cath (5) Non Hodgkin's lymphoma Status: Chronic Impact on Functional Outcomes Recovery will be slow and may be limited due to sepsis and cranial abscess. Barriers to Discharge: weakness, endurance, balance, comprehension, medical stability Plan to Avoid Complications Plan to Avoid Complications The patient cannot receive this care in a lesser intensive setting such as [facility] or Outpatient Therapy due to the patient requiring the following iv rocephin due to sepsis and cranial abscess.. The patient requires oversight by a rehabilitation physician to manage their rehabilitation treatment plan and the multidisciplinary approach to care that can only be provided in an IRF and requires a multidisciplinary approach to care , provided by professional PTs, OTs, STs, dieticians, RTs, rehabilitation nurses and is not available in lesser levels of care. The frequency and duration for therapy, as recommended by the professional Rehabilitation therapists, meet the patient's initial rehabilitation treatment plan needs and will be further evaluated on a weekly basis for progress and/or changes needed. SHEYLA BARAHONA MD Jan 30, 2017 12:21
--- NOTE | 2017-01-30 12:23 | PDIRUTEAM ---
Multidisciplinary Team Meeting Nursing Hx Incontinence: No Bladder Goal: 6 Modified Spencer Chan Y/N: Yes Cleaning Ability-Bladder: 1 Total Assistance Bowel Goal: 7+ Complete Spencer Colostomy Y/N: No Bowel Incontinent/Continent: Continent Toileting Ability: 2 Maximum Assistance Vital Signs Vital Signs Date Time Temp Pulse Resp B/P Pulse Ox O2 Delivery O2 Flow Rate FiO2 01/30/17 09:49 16 01/30/17 09:49 90 01/30/17 08:00 99.5 99/61 94 Room Air Current Medications Current Medications Medications (Trade) Dose Ordered Sig/Korina Route PRN Reason Start Time Stop Time Status Last Admin Dose Admin Acyclovir (Zovirax) 200 mg 5XD PO 01/29/17 19:00 01/30/17 11:30 Clotrimazole (Mycelex) 10 mg 5XD PO 01/29/17 19:00 01/30/17 11:30 Docusate Sodium (Colace) 100 mg BID PO 01/29/17 21:00 01/30/17 08:42 Levetiracetam (Keppra) 500 mg BID PO 01/29/17 21:00 01/30/17 08:42 Sertraline HCl (Zoloft) 25 mg DAILY PO 01/30/17 09:00 01/30/17 08:42 Tamsulosin HCl (FLOMAX 0.4 mg) 0.4 mg BID PO 01/29/17 21:00 01/30/17 08:42 Budesonide/ Formoterol Fumarate 2 puff 2 puff BID PRN ORAL INH 01/29/17 16:30 01/30/17 09:43 Ceftriaxone Sodium/Sodium Chloride (Rocephin/NS) 100 ml @ 200 mls/hr Q12HR IV 01/29/17 21:00 01/30/17 21:29 01/30/17 08:41 Polyethylene Glycol (Miralax) 17 g DAILY PO 01/29/17 17:30 01/30/17 11:30 Comments requiring iv rocephin bid folley cath had issues and clogged. this was fixed. Physical Therapy Bed Transfer Ability: 6 Modified Spencer Bed Transfer Assistance Needed: 1 Person Chair Transfer Ability: 4 Minimal Assistance Chair Transfer Assistance Need: 1 Person Overall Wheelchair Transfer Ab: 4 Minimal Assistance Wheelchair Transfer Assistance: 1 Person Ambulation Ability: 1 Total Assistance Ambulation Assistance Needed: 1 Person Ambulation Distance: 37 Comments UNGA is an issue. Occupational Therapy Grooming Ability: 4 Minimal Assistance Bathing Ability: 4 Minimal Assistance Upper Body Dressing Ability: 5 Supervision/Setup Lower Body Dressing Ability: 4 Minimal Assistance Lower Body Dressing Assistance: 1 Person Toileting Assistance Needed: 1 Person Toileting FIM Score Reason: CHAN CATH MANAGED BY STAFF Comments Spontaneous behavior is an issue Care Plan IRU Discharge Disposition: Home Health Service Interventions/Goals Reeval in one week. Cont PT OT and Speech. Communication will be an issue. Barriers to d/c -- weakness, balance, judgement, [place] tribeSHEYLA Linn MD Jan 30, 2017 12:23
[2017-01-30 12:56] LABS: BASOPHILS % (AUTO) 0.2 % (0-2); EOSINOPHILS # (AUTO) 0.2 T/MM3 (0-0.5); EOSINOPHILS % (AUTO) 1.2 % (0-4); HGB - HEMOGLOBIN 12.7 GM/DL (13.5-17.5); IMMATURE GRANULOCYTE % (AUTO) 0.7 % (0.0-0.5); LYMPHOCYTES # (AUTO) 1.3 T/MM3 (1-4.8); LYMPHOCYTES % (AUTO) 9.9 % (23-45); MEAN CORPUSCULAR HGB 29.5 UUG (26-34); MEAN CORPUSCULAR HGB CONC(MCHC 32.6 GM/DL (31-37); MEAN CORPUSCULAR VOLUME 90.7 UM3 (80-100); MEAN PLATELET VOLUME 8.4 UM3 (9.4-12.4); MONOCYTES # (AUTO) 0.8 T/MM3 (0-0.8); MONOCYTES % (AUTO) 6.2 % (0-9.0); NEUTROPHILS % (AUTO) 81.8 % (33-66); WBC - WHITE BLOOD COUNT 13.5 T/MM3 (4.5-11.0)
[2017-01-30 13:01] LABS: ANION GAP 12 MEQ/L (5-15); BUN/CREATININE RATIO 20 RATIO (6-26); CALCIUM 9.3 MG/DL (8.4-10.2); CHLORIDE 103 MEQ/L (98-107); CO2 - CARBON DIOXIDE 27 MEQ/L (22-30); CREATININE 0.8 MG/DL (0.8-1.5); GLOMERULAR FILTRATION RATE 98; GLUCOSE 126 MG/DL (75-110); POTASSIUM 4.2 MEQ/L (3.6-5); SODIUM 142 MEQ/L (134-144)
--- NOTE | 2017-01-30 14:31 | STDAILYN ---
ST Daily Note Date/Time DATE: 01/30/17 TIME: 08:48 Subjective Comment Pt was alert with no complaint of pain. Hearing is very reduced at this time. He responded well to written directions and questions. Orientations: Person, Place, Alert, Cooperative Chief Complaint: bacterial meningitis, post craniotomy, aphasia, dysphagia Pain: No Person(s) Educated: Patient Education Subject: Swallowing Strategies Instruction Understanding Demo: Pt. verbalizes understand Education Comment Pt instructed in using small bites and slow rate while eating. He verbalized understanding. *Speech Therapy Impressions Pt was positioned upright in chair for breakfast. He opened containers with minimal assistance. Pt ate scrambled eggs, diced peaches, yogurt and drank milk with no s/s of aspiration. Cued to take small bites and eat slowly. Pt expressed needs, "Can you open this? I am tired and want to go back to my room ". Speech was intelligible and appropriate to topic. White board used to give information and ask questions. Reading comprehension intact at sentence level. Pt named 15/25 pictures, described action with single word on 12/29 and formulated phrase on 09/30. Voice was soft but dry. In the afternoon session pt named 19/20 pictures and formulated 6/10 phrases to describe picture. He read questions and answered with complete sentences in 7/10 responses. Pt reported that he was unable to hear voices at this time but could hear loud environmental sounds (chair scraping along the floor). He has experience using a computer and was interested in developing communication system using his laptop. ST Treatment Plan: Communication Retraining, Swallow Precautions, Modified Diet ST Treatment Plan Frequency: five times per week Treatment Plan Duration: three weeks Plan of Care Comment: Modified diet: soft diet/chopped meat, regular liquids Swallow precautions: small bites, slow rate Speech retraining White board used for communication Start Treatment 1: 08:00 Stop Treatment 1: 08:25 Start Treatment 2: 08:25 Stop Treatment 2: 08:45 Start Treatment 3: 13:20 Stop Treatment 3: 13:50 Treatment Duration #1: ST Treatment Charge: Swallow Treatment Minutes of Individual Therapy: 25 Treatment Duration #2: ST Treatment Charge: Speech Treatment Minutes of Individual Therapy: 20 Treatment Duration #3: ST Treatment Charge: Speech Treatment Minutes of Individual Therapy: 30 ST FIM Comprehension Ability: 2 Maximum Assistance (white board ) Comprehension FIM Score Reason: Pt has significant hearing loss. White board used to provide information and ask questions. Reading comprehension intact for sentences. Social Interaction: 2 Maximum Assistance Social Interaction FIM Score R: Responds to others, does not initiate Problem Solvin Total Assistance Memory: 1 Total Assistance Expression Ability: 2 Maximum Assistance Expression FIM Score Reason: Pt named objects/pictures well. He formulated short phrases with moderate cue. Swallowin Minimal Assistance Swallowing FIM Score Reason: Needs cue to take small bites and slow rate RAAD VARMA MS CCC-[employer] OPERATOR Jan 30, 2017 08:55
[2017-01-30 16:14] VITALS: BP 111/65; PULSE 79; RESP 16; TEMP 97.6; O2SAT 98
--- NOTE | 2017-01-30 19:35 | NUR ---
Shift Summary Pt ambulates well with assist of 1, FWW, and gait belt. Has denied pain this shift. Jeff to head and ABD are open to air. Received a PCV13 vaccine this shift in the Lt deltoid, he tolerated well. PICC to the RU has 3 lumens the red and white lumens flushed and aspirated well, the chavez lumen needed to have infusion therapy look at due to not flushing. Obtained an order for PICC placement verification due to having it placed at another facility from Kamila Parker APRN. He has been continent of bowel able to manage his own clothing and cares. Has a Parker catheter to a leg bag which [place] [facility] [place] to [place] previous one having a longer tube and kinking off easily. He followed direction well except for ambulating to the bathroom in the dining room on his own, he was reminded that he is not to do that. Ate moderately for meals, did not need assist with his tray, ambulated to the dining room for dinner and lunch. When in bed the bed alarm is in use and call light is in use.
--- NOTE | 2017-01-30 19:38 | NUR ---
DONTE GUERIN SCORE IS 10. Addendum: 01/30/17 at 1939 by ELI KENNEDY SW Amended: Links added.
--- NOTE | 2017-01-30 19:40 | NUR ---
CM SPOKE WITH PT, INTRODUCED SELF, EXPLAINED ROLE, PROVIDED CONTACT INFO. PT IS VERY HARD OF HEARING AND PREFERS THAT THIS WORKER WRITES ON HIS WHITE BOARD RATHER THAN SPEAK. THIS WORKER WROTE, IS HIS DC PLAN TO RETURN HOME? HE STATED, "I DON'T KNOW." THIS WORKER WROTE, CAN HIS BE CONTACT FOR DC PLANNING, AND HE SAID YES. DC PLANNING WILL BE ONGOING AND THIS WORKER WILL FOLLOW UP WITH PT'S . Addendum: 01/30/17 at 1 by ELI COLON Amended: Links added.
[2017-01-31 01:25] VITALS: PULSE 79; RESP 16
[2017-01-31 01:43] VITALS: BP 106/65; PULSE 92; RESP 18; TEMP 99.5; O2SAT 97
--- NOTE | 2017-01-31 04:13 | NUR ---
Chart Check 24 hour chart check completed
--- NOTE | 2017-01-31 06:11 | NUR ---
Summary Malcolm has been pleasant and cooperative. He is very [place] and has required white board for communications. He has made his needs known and expressed gratitude for cares. He tolerated IV antibiotic well and all ports flushed well and is Heprinized. Parker cath is draining to leg bag and is clear and yellow. Incisions are well approximated. j carlos are in place. He reports no pain when asked. He is currenly in bed with side rails up times two, bed alarm on and call light within reach.
[2017-01-31] MEDS: CLOTRIMAZOLE 10 MG TROCHE PO SCH ×5 (06:19→23:12)
[2017-01-31] MEDS: ACYCLOVIR 200 MG CAPSULE PO SCH ×5 (06:19→23:12)
[2017-01-31 07:45] VITALS: BP 84/61; PULSE 121; RESP 20; TEMP 98.2; O2SAT 97
[2017-01-31 08:40] VITALS: BP 111/64; PULSE 103
[2017-01-31] MEDS: DOCUSATE SODIUM 100 MG CAPSULE PO SCH ×2 (08:51→23:12)
[2017-01-31] MEDS: LEVETIRACETAM 500 MG TABLET PO SCH ×2 (08:52→23:12)
[2017-01-31] MEDS: SERTRALINE 25 MG TABLET PO SCH (08:52)
[2017-01-31] MEDS: CEFTRIAXONE 2 G in NORMAL SALINE 100 ML IV SCH ×2 (08:52→09:45)
[2017-01-31] MEDS: TAMSULOSIN 0.4 MG CAPSULE PO SCH ×2 (08:52→23:12)
[2017-01-31] MEDS: POLYETHYL.GLYCOL 3350 PACKET 17gm PO SCH (08:52)
--- NOTE | 2017-01-31 10:39 | STDAILYN ---
ST Daily Note Date/Time DATE: 01/31/17 TIME: 10:21 Subjective Comment Upon arrival, patient was waiting in the dining room for breakfast. Patient was introduced via whiteboard to graduate clinician, Byron and he agreed to having her provide therapy while being supervised by INTERVENTION NURSE Lorena. Patient was in a pleasant mood and had no c/o pain or fatigue. Clinician continued using whiteboard to communicate with patient, due to hearing loss, throughout the rest of the session. Orientations: x 3, Cooperative Chief Complaint: bacterial meningitis, post craniotomy, aphasia, dysphagia Pain: No (Patient reported having no pain ) Was Patient Education Provided: Yes Person(s) Educated: Patient Education Subject: Treatment Plan Instruction Understanding Demo: Pt. verbalizes understand Education Comment Patient was educated on taking small sips/bites at a slow rate during breakfast. Patient verbalized understanding. *Speech Therapy Impressions Patient was sitting upright ready for breakfast. His meal consisted of pancake and sausage chopped in to 1/4'' bites, scrambled eggs, cereal with milk, thin coffee, and thin orange juice. Patient was reminded to follow swallow precautions of taking small sips/bites at a slow rate. Patient demonstrated fair labial closure and fair mastication. Laryngeal elevation was present. No clinical s/s of aspiration were observed during this session. Patient was transferred to room with assistance of FWW and nursing staff to finish therapy session. Diet upgraded to regular consistency with regular liquids. ST Treatment Plan: Communication Retraining, Swallow Precautions, Modified Diet ST Treatment Plan Frequency: five times per week Treatment Plan Duration: three weeks Plan of Care Comment: Continue Plan of Care Upgrade diet to regular consistency/regular liquids Start Treatment 1: 08:00 Stop Treatment 1: 08:30 ST FIM Comprehension Ability: 2 Maximum Assistance Comprehension FIM Score Reason: Social Interaction: 2 Maximum Assistance Problem Solvin Total Assistance Memory: 2 Maximum Assistance Expression Ability: 2 Maximum Assistance Swallowin Minimal Assistance BYRON ALMEIDA Jan 31, 2017 10:26
--- NOTE | 2017-01-31 11:49 | PNPDOC ---
IRU Subjective Date DATE: 01/30/17 TIME: 1415 Patient seen and evaluated with medical, evaluation and visit done 01/30/2017 at approximately 1415, note being admitted today. Subjective Patient is working with physical therapy and occupational therapy. Speech also involved. CV team meeting note, patient shows early slow improvement. IRU Objective Vital Signs Vital signs Vital Signs Date Time Temp Pulse Resp B/P Pulse Ox O2 Delivery O2 Flow Rate FiO2 01/31/17 08:40 103 111/64 01/31/17 07:45 98.2 20 97 Room Air Height (Feet): 5 Height (Inches): 10.00 Weight (Kilograms): 81.000 General General Appearance: Alert Respiratory (Brief) Respiratory: FOUND: clear all ling, equal bilaterally Cardiovascular (Brief) Cardiac: FOUND: regular rate, regular rhythm Capillary Refill: <2 sec Laboratory Laboratory Laboratory Tests Test 01/30/17 12:34 White Blood Count 13.5T/MM3 Red Blood Count 4.30M/MM3 Hemoglobin 12.7GM/DL Hematocrit 39.0% Mean Corpuscular Volume 90.7UM3 Mean Corpuscular Hemoglobin 29.5UUG Mean Corpuscular Hemoglobin Concent 32.6GM/DL RDW Standard Deviation 43.4FL Platelet Count 565T/MM3 Mean Platelet Volume 8.4UM3 Immature Granulocyte % (Auto) 0.7% Neutrophils (%) (Auto) 81.8% Lymphocytes (%) (Auto) 9.9% Monocytes (%) (Auto) 6.2% Eosinophils (%) (Auto) 1.2% Basophils (%) (Auto) 0.2% Absolute Immature Granulocyte (auto 0.10T/MM3 Absolute Neutrophils (auto) 11.0T/MM3 Absolute Lymphocytes (auto) 1.3T/MM3 Absolute Monocytes (auto) 0.8T/MM3 Absolute Eosinophils (auto) 0.2T/MM3 Absolute Basophils (auto) 0.0T/MM3 Turbidity < 20 Sodium Level 142MEQ/L Potassium Level 4.2MEQ/L Chloride Level 103MEQ/L Carbon Dioxide Level 27MEQ/L Anion Gap 12MEQ/L Blood Urea Nitrogen 16.0MG/DL Creatinine 0.8MG/DL Glomerular Filtration Rate Calc 98 BUN/Creatinine Ratio 20RATIO Glucose Level 126MG/DL Calculated Osmolality 276MOSM/KG Calcium Level 9.3MG/DL Icterus Index < 2 Chemistry Specimen Hemolysis < 15 Assessment & Plan Problems: (1) Myopathy Assessment & Plan: Continue with PT and OT plan of care. Reevaluate in one week. (2) Hearing loss Assessment & Plan: This is significant does impact medication. Speech working with the patient on communication issues. (3) Pneumococcal meningitis Status: Acute Assessment & Plan: Medical to manage (4) Urinary retention Status: Acute Assessment & Plan: Parker in place, medical to manage (5) Non Hodgkin's lymphoma Status: Chronic Qualifiers: Non-Hodgkin lymphoma type: B-cell Lymphoma site: unspecified region Assessment & Plan: Patient okay to miss treatments while in IRU. This is according to his oncologist. DVT Prophylaxis: SCD'S Code Status Full Code Interventions to Obtain Goals PT Treatment Plan: Therapeutic Exercise, Gait Training, Functional Activities , Patient/Family Education, Balance/Proprioception OT Treatment Plan: ADL's (basic care), Cognitive Skills Develop., Ther. Exercise for ADL's, UE Functional Training, Balance Training, Pt./Family Education, IADL's ST Treatment Plan: Communication Retraining, Swallow Precautions, Modified Diet Hospital Course Summary Disclaimer The hospital course summary below is not to be considered part of the above Progress Note. SHEYLA BARAHONA MD Jan 31, 2017 11:49
--- NOTE | 2017-01-31 11:54 | PDIRUOPC ---
Overall Plan of Care Date DATE: 01/31/17 TIME: 11:51 Relevant Changes Relevant Changes: No I have reviewed the patient's information and concur with the finding and results of the pre-admission screen. Certification I certify the patient for rehabilitation. Patient Impairments Prior Medical Conditions: (1) Myopathy Additional Information: Continue with PT and OT plan of care. Reevaluate in one week. (2) Hearing loss Additional Information: This is significant does impact medication. Speech working with the patient on communication issues. (3) Pneumococcal meningitis Status: Acute Additional Information: Medical to manage (4) Urinary retention Status: Acute Additional Information: Chan in place, medical to manage (5) Non Hodgkin's lymphoma Status: Chronic Additional Information: Patient okay to miss treatments while in IRU. This is according to his oncologist. Current Medical Conditions: (1) Myopathy Additional Information: Continue with PT and OT plan of care. Reevaluate in one week. (2) Hearing loss Additional Information: This is significant does impact medication. Speech working with the patient on communication issues. (3) Pneumococcal meningitis Status: Acute Additional Information: Medical to manage (4) Urinary retention Status: Acute Additional Information: Chan in place, medical to manage (5) Non Hodgkin's lymphoma Status: Chronic Additional Information: Patient okay to miss treatments while in IRU. This is according to his oncologist. Medical Prognosis Fair IRF Tx That Should Address Dx: (1) Myopathy (2) Hearing loss Dx Requiring Medical FU: (1) Herpes labialis (2) Pneumococcal meningitis (3) Urinary retention Vital Signs Vital Signs Date Time Temp Pulse Resp B/P Pulse Ox O2 Delivery O2 Flow Rate FiO2 01/31/17 08:40 103 111/64 01/31/17 07:45 98.2 20 97 Room Air Laboratory Laboratory Tests Test 01/30/17 12:34 White Blood Count 13.5T/MM3 Red Blood Count 4.30M/MM3 Hemoglobin 12.7GM/DL Hematocrit 39.0% Mean Corpuscular Volume 90.7UM3 Mean Corpuscular Hemoglobin 29.5UUG Mean Corpuscular Hemoglobin Concent 32.6GM/DL RDW Standard Deviation 43.4FL Platelet Count 565T/MM3 Mean Platelet Volume 8.4UM3 Immature Granulocyte % (Auto) 0.7% Neutrophils (%) (Auto) 81.8% Lymphocytes (%) (Auto) 9.9% Monocytes (%) (Auto) 6.2% Eosinophils (%) (Auto) 1.2% Basophils (%) (Auto) 0.2% Absolute Immature Granulocyte (auto 0.10T/MM3 Absolute Neutrophils (auto) 11.0T/MM3 Absolute Lymphocytes (auto) 1.3T/MM3 Absolute Monocytes (auto) 0.8T/MM3 Absolute Eosinophils (auto) 0.2T/MM3 Absolute Basophils (auto) 0.0T/MM3 Turbidity < 20 Sodium Level 142MEQ/L Potassium Level 4.2MEQ/L Chloride Level 103MEQ/L Carbon Dioxide Level 27MEQ/L Anion Gap 12MEQ/L Blood Urea Nitrogen 16.0MG/DL Creatinine 0.8MG/DL Glomerular Filtration Rate Calc 98 BUN/Creatinine Ratio 20RATIO Glucose Level 126MG/DL Calculated Osmolality 276MOSM/KG Calcium Level 9.3MG/DL Icterus Index < 2 Chemistry Specimen Hemolysis < 15 Anticipated Interventions The patient requires inpatient IRF care for PT, OT, and/or ST for residuals remaining from bacterial meningitis resulting in muscular weakness and strength deficits. Strength Deficits: Left Lower Extremity, Right Lower Extremity FIM Scores Ambulation Distance: 200 Wheelchair Propulsion Distance: 130 Ambulation Ability: 4 Minimal Assistance Ambulation Assistance Needed: 1 Person Wheelchair Propulsion Ability: 2 Maximum Assistance Wheelchair Propulsion [place]: 1 Person Stairs: 2 Maximum Assistance Stair Assistance Needed: 1 Person Number of Stairs: 4 Eating Ability-FIM: 5 Supervision/Setup Grooming Ability: 4 Minimal Assistance Bathing Ability: 4 Minimal Assistance Upper Body Dressing Ability: 6 Modified [place] Lower Body Dressing Ability: 4 Minimal Assistance Lower Body Dressing Assistance: 1 Person Toileting Ability: 3 Moderate Assistance Toileting Assistance Needed: 1 Person Toileting FIM Score Reason: CHAN CATH MANAGED BY STAFF Bed Transfer Ability: 4 Minimal Assistance Bed Transfer Assistance Needed: 1 Person Chair Transfer Ability: 4 Minimal Assistance Chair Transfer Assistance Need: 1 Person Overall Wheelchair Transfer Ab: 4 Minimal Assistance Overall Toilet / Commode Trans: 5 Supervision/Setup Toilet / Commode Transfer Assi: 1 Person Tub / Shower Transfer Ability: 5 Supervision/Setup Tub / Shower Transfer [place]: 1 Person Comprehension Ability: 2 Maximum Assistance Social Interaction: 2 Maximum Assistance Social Interaction FIM Score R: Responds to others, does not initiate Problem Solvin Total Assistance Expression Ability: 2 Maximum Assistance Memory: 2 Maximum Assistance Expression FIM Score Reason: Pt named objects/pictures well. He formulated short phrases with moderate cue. Swallowin Minimal Assistance Swallowing FIM Score Reason: Needs cue to take small bites and slow rate Current Functional Status Failed Alternative Therapy: Arrived from acute care Patient Requires * Patient has been determined to have significant functional limitations requiring at least two therapy disciplines. * Rehabilitation medical practitioner will provide admission approval, assessment and oversight and program coordination at least daily. * Intensive rehabilitative nursing services on site and available 24 hours a day. * The treatment plan will be developed within 24 hours of admission. * Interdisciplinary and goal oriented treatment by professional nursing, public health social worker, and rehabilitation therapist. * Interdisciplinary team meeting weekly inclusive of ongoing comprehensive discharge planning. First team meeting by seven. Weekly meetings to follow. * Rehab Physician is the team meeting leader. * Pharmacy and diagnostic services will be available. * Ongoing comprehensive rehab program with at least 2 disciplines and greater than or equal to 3 hours a day, 5 days a week. Speech Therapy Minutes: 60 Physical Therapy Minutes: 60 Occupational Therapy Minutes: 60 Therapy The patient is to receive therapy at least 5 days a week. PT Treatment Plan: Therapeutic Exercise, Gait Training, Functional Activities , Patient/Family Education, Balance/Proprioception Treatment Plan Frequency: five times per week Treatment Plan Duration: three weeks Plan of Care Comment: Continue Plan of Care OT Treatment Plan: ADL's (basic care), Cognitive Skills Develop., Ther. Exercise for ADL's, UE Functional Training, Balance Training, Pt./Family Education, IADL's OT Treatment Plan Frequency: five times per week OT Treatment Plan Duration: three weeks ST Treatment Plan: Communication Retraining, Swallow Precautions, Modified Diet ST Treatment Plan Frequency: five times per week Treatment Plan Duration: three weeks Anticapted LOS/Outcomes Anticipated Functional Outcome Uncertain about improvement in hearing, but overall strength, stamina and coordination should improve with treatment. Anticipated DC Destination: Home Health Service Home Safety Plan The patient will be provided with the development of a Home Safety Plan for return to a home or home-like environment and to ensure safety post discharge. Complicating Conditions Complications since IRF admit: (1) Myopathy Comments: Continue with PT and OT plan of care. Reevaluate in one week. (2) Hearing loss Comments: This is significant does impact medication. Speech working with the patient on communication issues. (3) Pneumococcal meningitis Status: Acute Comments: Medical to manage (4) Urinary retention Status: Acute Comments: Chan in place, medical to manage (5) Non Hodgkin's lymphoma Status: Chronic Comments: Patient okay to miss treatments while in IRU. This is according to his oncologist. Other Contributing Factors: Plan to Avoid Complications Barriers to Attaining Goals: weakness, balance, endurance, comprehension, medical limitation Plan to Avoid Complications The patient cannot receive this care in a lesser intensive setting such as Half-Way or Outpatient Therapy due to the patient requiring the following bacterial meningitis with potential for fall, worsening of infection. The patient requires oversight by a rehabilitation physician to manage their rehabilitation treatment plan and the multidisciplinary approach to care that can only be provided in an IRF and requires a multidisciplinary approach to care , provided by professional PTs, OTs, STs, dieticians, RTs, rehabilitation nurses and is not available in lesser levels of care. The frequency and duration for therapy, as recommended by the professional Rehabilitation therapists, meet the patient's initial rehabilitation treatment plan needs and will be further evaluated on a weekly basis for progress and/or changes needed. Problem Qualifiers (1) Non Hodgkin's lymphoma: Non-Hodgkin lymphoma type: B-cell Lymphoma site: unspecified region SHEYLA BARAHONA MD Jan 31, 2017 11:54
--- NOTE | 2017-01-31 14:50 | PNPDOC ---
Subjective Date DATE: 01/31/17 TIME: 14:41 Subjective Malcolm was resting in bed, but easily awakened. He smiled, and although he is hard of hearing, he communicated as well as he could. He denied any pain. His was present, and she feels like he has been communicating better, and it seems like that his hearing is improving. He has been complaining of a sore throat, but the sores on his tongue and on his lips don't seem to bother him much. He has been eating well. Objective Vital Signs Vital signs Vital Signs Date Time Temp Pulse Resp B/P Pulse Ox O2 Delivery O2 Flow Rate FiO2 01/31/17 08:40 103 111/64 01/31/17 07:45 98.2 20 97 Room Air Height (Feet): 5 Height (Inches): 10.00 Weight (Kilograms): 81.000 General General Appearance: Alert, Well Developed, No Acute Distress ENMT (Brief) ENMT: FOUND: lesions (vesicular herpetic lesions to lips, particularly right lower lip. Also noted in right nare. He has a 1.5 cm lesion at the tip of his tongue with a white coating and erythemic border.), mucosa moist, pharnyx erythema Respiratory (Brief) Respiratory: FOUND: clear all ling, equal bilaterally Cardiovascular (Brief) Cardiac: FOUND: regular rate, regular rhythm Abdomen (Brief) Abdominal: FOUND: BS normo active x4, soft Comments Incision to the right lower quadrant is clean, dry, no erythema, swelling or drainage. [place] can safely be removed. Extremities (Brief) Extremity : Side: Bilateral Extremity Finding: NOT FOUND: edema Musculoskeletal (Brief) Musculoskeletal: NOT FOUND: deformity Integumentary (Brief) Integumentary: FOUND: dry, warm Comments Craniotomy incision appears to be healing well without any erythema, swelling or drainage. Incision is well approximated. Neurologic (Brief) Neurological: NOT FOUND: facial droop, ptosis Psychiatric (Brief) Psychiatric: FOUND: alert, attentive, normal affect, oriented Laboratory Laboratory Laboratory Tests 01/30/17 12:34 Laboratory Tests 01/30/17 12:34 Assessment & Plan Problems: (1) Pneumococcal meningitis Status: Acute (2) Osteomyelitis Status: Acute Qualifiers: Osteomyelitis location: other site Assessment & Plan: Posterior table of the right frontal sinus and posterior wall of the maxilla; bifrontal craniotomy with cranialization of the frontal sinuses on 01/[address] 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 Will remove craniotomy and abdominal j carlos today, per orders from V[facility]ctor. Pneumococcal meningitis with osteomyelitis: Continue ceftriaxone 2 g daily through February 27 Herpetic lesions: Continue acyclovir. He may need a prolonged course of acyclovir. Thrush: Continue Mycelex BPH and history of urinary retention: Continue Parker catheter per request. May need urologic consultation. Code Status Full Code Hospital Course Summary Disclaimer The hospital course summary below is not to be considered part of the above Progress Note. Hospital Course Summary 01/30/17 Agree with admission to IRU under the care of Dr Cano for ongoing rehabilitation and strengthening Craniotomy j carlos may be removed on 01/31/17 Ceftriaxone twice a day through 01/30/17. Then decrease to daily through . Appreciated ongoing ID management as per Dr Sotomayor Acute hearing loss is likely secondary to acute meningitis. This may be a chronic defect. EEG completed at [facility] [facility] did revel some abnormalities, however not seizures. He was placed on Keppra. Continue with urinary cath for urinary retention. is hesitant to have this removed because it was very difficult to replace it. All oncology treatments currently on hold. He has been under the care of Dr Patel. 01/31/17 Incisions have healed well. Will remove craniotomy and abdominal j carlos today, per orders from [facility]. Pneumococcal meningitis with osteomyelitis: Continue ceftriaxone 2 g daily through February 27 Herpetic lesions: Continue acyclovir. He may need a prolonged course of acyclovir. Thrush: Continue Mycelex BPH and history of urinary retention: Continue Parker catheter per request. May need urologic consultation. CHERELLE DE LA ROSA CHEF INSTRUCTOR Jan 31, 2017 14:44
--- NOTE | 2017-01-31 15:56 | STDAILYN ---
ST Daily Note Date/Time DATE: 01/31/17 TIME: 11:40 Subjective Comment PT WAS ALERT AND RESPONSIVE TO WRITTEN QUESTIONS. NO COMPLAINT OF PAIN OR FATIGUE. Orientations: Alert, Cooperative Chief Complaint: BACTERIAL MENINGITIS, HEARING LOSS POST SURGERY Pain: No *Speech Therapy Impressions COGNITIVE ASSESSMENT COMPLETED USING ROSS INFORMATION PROCESSING ASSESSMENT. STANDARDIZED SCORING WILL NOT BE USED BECAUSE TEST WAS ADMINISTERED VIA WRITTEN MATERIAL RATHER THAN AUDITORY. PT HEARING WAS SIGNIFICANTLY REDUCED POST CRANIOTOMY. RESULTS OF RIPA INDICATED: PROFOUND DEFICIT IN ORGANIZATION, SEVERE IMPAIRMENT IN IMMEDIATE MEMORY AND PROBLEM SOLVING. MODERATE DEFICITS WERE SEEN IN RECENT MEMORY, TIME ORIENTATION (REMOTE MEMORY), ORIENTATION TO ENVIRONMENT AND RECALL OF GENERAL INFORMATION. TIME ORIENTATION (RECENT MEMORY) AND SPATIAL ORIENTATION WERE WITHIN FUNCTIONAL. AUDITORY PROCESSING WAS NOT ASSESSED DUE TO PATIENTS HEARING LOSS. ST Treatment Plan: Swallow Precautions, Modified Diet, Cognitive Linguistic Tx ST Treatment Plan Frequency: five times per week Treatment Plan Duration: three weeks Plan of Care Comment: CONTINUE POC Start Treatment 2: 08:35 Stop Treatment 2: 09:05 Start Treatment 3: 14:40 Stop Treatment 3: 15:20 Treatment Duration : ST Treatment Charge: Speech Eval Minutes of Individual Therapy: 70 ST FIM Comprehension Ability: 3 Moderate Assistance Comprehension FIM Score Reason: DUE TO HEARING LOSS PT'S COMPREHENSION SCORE WAS BASED ON WRITTEN STIMULI ONLY. Social Interaction: 3 Moderate Assistance Problem Solvin Maximum Assistance Memory: 3 Moderate Assistance Expression Ability: 3 Moderate Assistance Swallowin Modified [place] Swallowing FIM Score Reason: DIET UPGRADED TO REGULAR DIET. REGULAR LIQUIDS. RAAD VARMA MS CCC-MITER OPERATOR Jan 31, 2017 11:44
[2017-01-31 16:12] VITALS: BP 112/65; PULSE 84; RESP 18; TEMP 97.9; O2SAT 94
--- NOTE | 2017-01-31 16:30 | NUR ---
NOTE RECEIVED A VERBAL ORDER FROM HOSPITALIST TO REMOVE SALOMÓN. 57 SALOMÓN REMOVED FROM CRANIAL INCISION, 7 SALOMÓN REMOVED FROM ABDOMINAL INCISION. PATIENT TOLERATED STAPLE REMOVAL WELL. NO DRAINAGE OR OOZING NOTED. PATIENT REPORTED NO PAIN AFTER SALOMÓN REMOVED. WILL CONT TO MONITOR
--- NOTE | 2017-01-31 19:00 | NUR ---
SHIFT SUMMARY PATIENT [place] [place] [employer] [place], BUT ALERT AND ORIENTED X 3. USED MARKER BOARD FOR COMMUNICATION, ANSWERS QUESTIONS APPROPRIATELY. DENIES PAIN, UP WITH ONE WITH GAIT BELT AND WALKER, ATE MEALS ADEQUATELY IN DINNING ROOM, NO DIFFICULTY SWALLOWING. SALOMÓN REMOVED FROM CRANIAL WOUND AND ABD WOUND PER MD ORDER. PATIENT LINDSAY PROCEDURE WELL. CHAN PATENT/DRAINING. VITALS STABLE. WILL CONT TO MONITOR.
[2017-01-31 22:57] VITALS: BP 104/66; PULSE 92; RESP 18; TEMP 98.6; O2SAT 96
[2017-02-01 02:24] VITALS: RESP 18
[2017-02-01] MEDS: ACETAMINOPHEN 325 MG TABLET PO PRN ×2 (06:18→21:28)
[2017-02-01] MEDS: ACYCLOVIR 200 MG CAPSULE PO SCH ×5 (06:19→21:30)
[2017-02-01] MEDS: CLOTRIMAZOLE 10 MG TROCHE PO SCH ×5 (06:20→21:30)
--- NOTE | 2017-02-01 07:00 | NUR ---
Summary Patient has been alert and oriented, pleasant and cooperative. White board used for communication due to hearing loss. Patient makes his needs known and uses call light appropriately. He has Parker with slightly cloudy yellow/straw colored urine, dependent to drainage. He is continent of bowel and ambulates to restroom with supervision using gait belt and walker. When in bed side rails are up times two, bed alarm on and call light within reach.
[2017-02-01 07:39] VITALS: BP 102/63; PULSE 87; RESP 16; TEMP 98.3; O2SAT 96
[2017-02-01] MEDS: CEFTRIAXONE 2 G in NORMAL SALINE 100 ML IV SCH (09:34)
[2017-02-01] MEDS: POLYETHYL.GLYCOL 3350 PACKET 17gm PO SCH (09:34)
[2017-02-01] MEDS: DOCUSATE SODIUM 100 MG CAPSULE PO SCH ×2 (09:35→21:00)
[2017-02-01] MEDS: LEVETIRACETAM 500 MG TABLET PO SCH ×2 (09:35→21:29)
[2017-02-01] MEDS: SERTRALINE 25 MG TABLET PO SCH (09:35)
[2017-02-01 09:40] VITALS: PULSE 87; RESP 16
[2017-02-01] MEDS: TAMSULOSIN 0.4 MG CAPSULE PO SCH ×2 (09:44→21:28)
--- NOTE | 2017-02-01 12:50 | PNPDOC ---
[facility] 02/01/17 1217: Subjective Date DATE: 02/01/17 TIME: 12:09 Subjective Malcolm was watching TV in his room, relaxing for a while after breakfast. He denies any concerns, and states that he is feeling good. His herpes lesions are not bothering him, and are improving. He denies any nausea, and has been eating well. Bowels are moving. Objective Vital Signs Vital signs Vital Signs Date Time Temp Pulse Resp B/P Pulse Ox O2 Delivery O2 Flow Rate FiO2 02/01/17 07:39 98.3 87 16 102/63 96 Room Air Height (Feet): 5 Height (Inches): 10.00 Weight (Kilograms): 81.000 General General Appearance: Alert, Orientated x 3, Well Nourished, Well Developed, No Acute Distress Eyes (Brief) Eyes: FOUND: PERRL, NOT FOUND: scleral icterus ENMT (Brief) ENMT: FOUND: lesions (herpes lesions to lip, tongue, right nare - improving), mucosa moist, NOT FOUND: pharnyx erythema Comments lesion Respiratory (Brief) Respiratory: FOUND: clear all ling, equal bilaterally Cardiovascular (Brief) Cardiac: FOUND: regular rate, regular rhythm Abdomen (Brief) Abdominal: FOUND: BS normo active x4, soft, NOT FOUND: distended Musculoskeletal (Brief) Musculoskeletal: NOT FOUND: tenderness Integumentary (Brief) Integumentary: FOUND: dry, pink, warm Comments Scalp incision: Jeff have been removed. There is no drainage or erythema. There is some scab formation, and I visited with the nurse about cleaning it. Abdominal incision: Mild reaction from [place], otherwise healing well without erythema, drainage or swelling. Psychiatric (Brief) Psychiatric: FOUND: alert, attentive, normal affect, oriented Laboratory Laboratory Laboratory Tests 01/30/17 12:34 Laboratory Tests 01/30/17 12:34 Assessment & Plan Problems: (1) Pneumococcal meningitis Status: Acute (2) Osteomyelitis Status: Acute Qualifiers: Osteomyelitis location: other site Assessment & Plan: Posterior table of the right frontal sinus and posterior wall of the maxilla; bifrontal craniotomy with cranialization of the frontal sinuses on 01/[address] 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 Nursing staff plans to go gently clean the scalp incision to remove the scab formation. Herpetic lesions have improved since yesterday. Continue acyclovir, we may need to consider extending the course. If they do not resolve. Continue Mycelex for thrush. Continue ceftriaxone 2 g daily through 02/27/17 for pneumococcal meningitis with osteomyelitis. Consider Parker catheter removal (discussed with prior to discontinuation, since patient was very difficult to catheterize), or urologic consult. Code Status Full Code Hospital Course Summary Disclaimer The hospital course summary below is not to be considered part of the above Progress Note. Hospital Course Summary 01/30/17 Agree with admission to IRU under the care of Dr Cano for ongoing rehabilitation and strengthening Craniotomy jeff may be removed on 01/31/17 Ceftriaxone twice a day through 01/30/17. Then decrease to daily through . Appreciated ongoing ID management as per Dr Sotomayor Acute hearing loss is likely secondary to acute meningitis. This may be a chronic defect. EEG completed at [facility] did revel some abnormalities, however not seizures. He was placed on Keppra. Continue with urinary cath for urinary retention. is hesitant to have this removed because it was very difficult to replace it. All oncology treatments currently on hold. He has been under the care of Dr Patel. 01/31/17 Incisions have healed well. Will remove craniotomy and abdominal jeff today, per orders from [facility]. Pneumococcal meningitis with osteomyelitis: Continue ceftriaxone 2 g daily through February 27 Herpetic lesions: Continue acyclovir. He may need a prolonged course of acyclovir. Thrush: Continue Mycelex BPH and history of urinary retention: Continue Parker catheter per request. May need urologic consultation. 02/01/17 [place] to his scalp incision and abdominal incision were removed yesterday. Nursing staff plans to go gently clean the scalp incision to remove the scab formation. Herpetic lesions have improved since yesterday. Continue acyclovir, we may need to consider extending the course. If they do not resolve. Continue Mycelex for thrush. Continue ceftriaxone 2 g daily through 02/27/17 for pneumococcal meningitis with osteomyelitis. Consider Parker catheter removal (discussed with prior to discontinuation, since patient was very difficult to catheterize), or urologic consult. SHANIA OBREGON MD 02/01/172044: Assessment & Plan Assessment I have independently evaluated and examined this patient. I reviewed the chart, the patient's history, and the HOSPITAL CNA's documented findings as above. We discussed and formulated the assessment and plan as above with additions as below: Neither Mr. Blackburn or his or nursing report any concerns. Patient's hearing remains significantly impaired. His reports his appetite is good and that he is making progress with therapy. Scalp incision is clean and dry, jeff were removed. Breath sounds are clear anteriorly Regular cardiac rhythm CRP to be checked with repeat CBC on Saturday. Ceftriaxone dose adjusted per infectious disease directions yesterday to continue treatment for osteomyelitis. CHERELLE DE LA ROSA APRN Feb 01, 2017 12:17 SHANIA OBREGON MD Feb 01, 2017 20:45
--- NOTE | 2017-02-01 15:22 | STDAILYN ---
ST Daily Note Date/Time DATE: 02/01/17 TIME: 14:47 Subjective Comment Pt was seen for speech therapy during breakfast for dysphagia and this afternoon for speech therapy. The pt was alert and pleasant to work with. We are using a white board for communication. Pt denies c/o pain or fatigue. Orientations: Alert, Cooperative Chief Complaint: Bacterial Meningitis, Hearing loss s/p Craniotomy Pain: No Was Patient Education Provided: Yes Person(s) Educated: Patient Education Subject: Swallowing Strategies Instruction Understanding Demo: Pt. verbalizes understand Education Comment Pt responds with "yes" and head nods but unsure of complete understanding. *Speech Therapy Impressions Short Terms Goals: 1. Pt will name words independently with 9/10 accuracy. When presented with photos of common objects, pt independently named 10/10 photos. The pt was then presented with a written description of an object and the pt was able to name the object with 17/20 accuracy with moderate cues. When asked questions about holidays, the pt was able to name the correct month with 9/10 accuracy with minimal verbal cues. During generative naming, the pt named an average of 7 items in each category. 2. Pt will formulate phrases/sentences to describe activity with 9/10 accuracy. The pt was presented with a photo of common activities. The pt was asked to describe the object or activity. The pt formulated short 3-4 word phrases to describe the activity. Occasional incorrect use of a word was noted and he required moderate cueing; the pt demonstrated 7/10 accuracy. 3. Pt will follow one step verbal direction with 9/10 accuracy. Not addressed during this session. 4. Pt will read short paragraph and answer questions with 9/10 accuracy.. Not addressed during this session. Dysphagia tx: The pt was assessed during the breakfast meal with a regular diet and regular liquids. The pt demonstrated toleration of this diet with no s/s of aspiration. No coughing or throat clearing was observed. The pt demonstrated adequate use of precautions with no cues needed to take small bites at a slow rate. The pt has met all dysphagia goals at this time and no longer requires dysphagia therapy. ST will continue to work with communication goals. ST Treatment Plan: Communication Retraining ST Treatment Plan Frequency: five times per week Treatment Plan Duration: two weeks Plan of Care Comment: Cont POC. Pt has met all dysphagia goals; dysphagia tx will be d/c'd. ST will cont working towards cognitive/communication goals. Start Treatment 1: 08:25 Stop Treatment 1: 08:45 Start Treatment 2: 14:00 Stop Treatment 2: 14:40 Treatment Duration #1: ST Treatment Charge: Swallow Treatment Minutes of Individual Therapy: 20 Treatment Duration #2: ST Treatment Charge: Speech Treatment Minutes of Individual Therapy: 40 ST FIM Comprehension Ability: 2 Maximum Assistance Comprehension FIM Score Reason: Pt uses white board to communicate and respond to questions. Social Interaction: 2 Maximum Assistance Social Interaction FIM Score R: Pt will answer question in short phrases but rarely initiates conversation. Problem Solvin Total Assistance Memory: 2 Maximum Assistance Expression Ability: 2 Maximum Assistance Expression FIM Score Reason: Pt will answer question in short phrases but rarely initiates conversation. Swallowin Modified [place] Swallowing FIM Score Reason: Pt is tolerating a regular diet with regular liquids and using precuations with min cues. LEIGH RENDON MA Feb 01, 2017 14:48
[2017-02-01 16:00] VITALS: BP 119/66; PULSE 93; RESP 16; TEMP 98.9; O2SAT 98
--- NOTE | 2017-02-01 19:56 | NUR ---
Summary VS's stable. Pt. is on RA. He is [place] and white board is implemented to help communicate. Pt. is very pleasant and cooperative. Parker is patent and draining clear, yellow urine. He is minimal assist with transfers x1 with FWW and gait belt. Incisions to head and abdomen are [place]. No drainage, or s/s of infection noted. Ruthie Tesfaye APRN, was here to round on pt. this A.M. No reports of pain this shift. Pt. is currently resting in bed. Report has been past on to night club manager.
[2017-02-01 23:37] VITALS: BP 116/63; PULSE 88; RESP 16; TEMP 97.9; O2SAT 98
--- NOTE | 2017-02-02 01:17 | NUR ---
Chart Check 24 hour chart check completed
[2017-02-02 02:01] VITALS: RESP 18
[2017-02-02] MEDS: ACYCLOVIR 200 MG CAPSULE PO SCH ×5 (06:41→22:54)
[2017-02-02] MEDS: CLOTRIMAZOLE 10 MG TROCHE PO SCH ×5 (06:41→22:54)
--- NOTE | 2017-02-02 07:00 | NUR ---
Summary Patient is alert and oriented, pleasant and cooperative. at bed side in the evening. Patient very hard of hearing and white board is used for communication. Hew is able to make his needs known. Parker is in place, dependent to drainage with adequate output. He ambulates with front wheeled walker and gait belt. When he is in bed, side rails are up times two, bed alarm on and call light within reach.
[2017-02-02 08:00] VITALS: BP 122/68; PULSE 109; RESP 20; TEMP 98; O2SAT 99
[2017-02-02] MEDS: LEVETIRACETAM 500 MG TABLET PO SCH ×2 (08:27→22:54)
[2017-02-02] MEDS: SERTRALINE 25 MG TABLET PO SCH (08:27)
[2017-02-02] MEDS: POLYETHYL.GLYCOL 3350 PACKET 17gm PO SCH (08:27)
[2017-02-02] MEDS: DOCUSATE SODIUM 100 MG CAPSULE PO SCH ×2 (08:27→22:54)
[2017-02-02] MEDS: TAMSULOSIN 0.4 MG CAPSULE PO SCH ×2 (08:27→22:55)
[2017-02-02 09:00] VITALS: PULSE 88; RESP 18
[2017-02-02] MEDS: CEFTRIAXONE 2 G in NORMAL SALINE 100 ML IV SCH (11:08)
[2017-02-02 16:00] VITALS: BP 115/67; PULSE 92; RESP 20; TEMP 98.7; O2SAT 97
[2017-02-02 19:46] VITALS: BP 136/69; PULSE 96; RESP 18; TEMP 98.9; O2SAT 97
--- NOTE | 2017-02-02 20:13 | NUR ---
Shift summary Patient alert, very hard of hearing. Using dry erase board to write questions and info for patient to read. Ambulating with FWW, gait belt, min assist. Min assist for transfers. Feeds self. PICC line to right upper extremity with 3 ports, all flushing well. Parker patent with clear yellow urine. Patient had many visitors this shift.
[2017-02-02] MEDS: ACETAMINOPHEN 325 MG TABLET PO PRN (23:00)
[2017-02-03 01:06] VITALS: PULSE 96; RESP 18
--- NOTE | 2017-02-03 03:45 | NUR ---
Chart Check 24 hour chart check completed
[2017-02-03] MEDS: CLOTRIMAZOLE 10 MG TROCHE PO SCH ×5 (06:16→23:16)
[2017-02-03] MEDS: ACYCLOVIR 200 MG CAPSULE PO SCH ×5 (06:16→23:16)
--- NOTE | 2017-02-03 06:56 | NUR ---
Summary Malcolm has been alert and oriented. Communicated with him via white board. He makes his needs known. He ambulates with FWW and gait belt. He transferred himself back to his bed from the restroom without staff present so will be constant observation in the restroom now. He is in bed with side rail up times two, bed alarm on and call light within reach. Parker in place with good output.
[2017-02-03 08:00] VITALS: BP 103/67; PULSE 117; RESP 16; RESP 18; TEMP 98; O2SAT 93
[2017-02-03] MEDS: BUDESONIDE/FORMOTEROL 80/4.5mcg INHALER ORAL INH PRN (09:31)
[2017-02-03] MEDS: DOCUSATE SODIUM 100 MG CAPSULE PO SCH ×2 (09:36→21:40)
[2017-02-03] MEDS: SERTRALINE 25 MG TABLET PO SCH (09:37)
[2017-02-03] MEDS: POLYETHYL.GLYCOL 3350 PACKET 17gm PO SCH (09:37)
[2017-02-03] MEDS: TAMSULOSIN 0.4 MG CAPSULE PO SCH ×2 (09:42→21:40)
[2017-02-03] MEDS: LEVETIRACETAM 500 MG TABLET PO SCH ×2 (09:53→21:40)
[2017-02-03] MEDS: CEFTRIAXONE 2 G in NORMAL SALINE 100 ML IV SCH (09:54)
--- NOTE | 2017-02-03 11:09 | PNPDOC ---
Subjective Date DATE: 02/03/17 TIME: 10:54 Kim Fowler is seen today in follow up for his recent meningitis with osteomyelitis and craniotomy. He is seen while resting in bed and arouses easily with soft touch. He is holding the red therapy band and appears to have fallen asleep while doing his exercises. As he has severe hearing loss, he prefers written communication on the wipe board. He denies any acute complaints and states he is doing well though later admits to some soreness to his scalp incision site. He denies any chest pain or shortness of breath. He continues to have herpetic lesions to his oral mucosa and lips which appear to be improving. Nursing notes were reviewed and indicate that he is doing well. His appetite has been good and he denies any nausea or vomiting. Bowels are moving. Parker catheter remains in place and is actively draining straw yellow-orange urine. Objective Vital Signs Vital signs Vital Signs Date Time Temp Pulse Resp B/P Pulse Ox O2 Delivery O2 Flow Rate FiO2 02/03/17 09:33 92 02/03/17 09:33 16 02/02/17 19:46 98.9 136/69 97 Room Air Height (Feet): 5 Height (Inches): 10.00 Weight (Kilograms): 81.000 General General Appearance: Alert, Cooperative, No Acute Distress Eyes (Brief) Eyes: FOUND: PERRL, NOT FOUND: scleral icterus ENMT (Brief) ENMT: FOUND: mucosa moist Comments herpetic lesions to lips and oral mucosa. Neck (Brief) Neck: FOUND: midline, NOT FOUND: nuchal rigidity, tracheal deviation Respiratory (Brief) Respiratory: FOUND: clear all ling, equal bilaterally, symmetrical, NOT FOUND : rales, wheezes Cardiovascular (Brief) Cardiac: FOUND: regular rate, regular rhythm, NOT FOUND: pedal edema Abdomen (Brief) Abdominal: FOUND: BS normo active x4, soft, NOT FOUND: distended, tender Extremities (Brief) Extremity : Side: Bilateral Extremity: leg Extremity Finding: NOT FOUND: deformity, edema Lymphatic (Brief) Lymphatic: NOT FOUND: lymphedema Musculoskeletal (Brief) Musculoskeletal: FOUND: extremities move equally, NOT FOUND: deformity, loss of motion Integumentary (Brief) Integumentary: FOUND: dry, pink, warm Comments afebrile Neurologic (Brief) Neurological: NOT FOUND: facial droop Psychiatric (Brief) Psychiatric: FOUND: alert, attentive, oriented Assessment & Plan Problems: (1) Pneumococcal meningitis Status: Acute (2) Osteomyelitis Status: Acute Qualifiers: Osteomyelitis location: other site Assessment & Plan: Posterior table of the right frontal sinus and posterior wall of the maxilla; bifrontal craniotomy with cranialization of the frontal sinuses on 01/[address] 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 1. Pneumococcal meningitis with osteomyelitis and leukocytosis: * J Carlos to scalp incision and abdominal incision were removed on 01/31. Incision sites are clean, dry and intact. Continue to monitor incisions closely for signs of infection. * Continue ceftriaxone 2 g daily through 02/27/17 for pneumococcal meningitis with osteomyelitis * Recheck CBC and BMP in AM to monitor blood counts, electrolytes and renal function in AM. * Recheck CRP on 02/04 to monitor osteomyelitis 2. Herpes Labialis * Herpetic lesions remain but reportedly are improving. Continue acyclovir - we may need to consider extending the course if lesions do not resolve. 3. Non-Hodgkin Lymphoma * Monitor as outpatient. 4. Asthma * Continue to inhalers as directed. 5. BPH with acute urinary retention * Parker placed on 01/26 due to retention. * Consider Parker catheter removal (discuss with prior to discontinuation, since patient was very difficult to catheterize), or urologic consult. * Continue flomax for BPH. 6. Thrush * Continue Mycelex for thrush. Code Status Full Code Hospital Course Summary Disclaimer The hospital course summary below is not to be considered part of the above Progress Note. Hospital Course Summary 01/30/17 Agree with admission to IRU under the care of Dr Cano for ongoing rehabilitation and strengthening Craniotomy j carlos may be removed on 01/31/17 Ceftriaxone twice a day through 01/30/17. Then decrease to daily through . Appreciated ongoing ID management as per Dr Sotomayor Acute hearing loss is likely secondary to acute meningitis. This may be a chronic defect. EEG completed at [facility] did revel some abnormalities, however not seizures. He was placed on Keppra. Continue with urinary cath for urinary retention. is hesitant to have this removed because it was very difficult to replace it. All oncology treatments currently on hold. He has been under the care of Dr Patel. 01/31/17 Incisions have healed well. Will remove craniotomy and abdominal j carlos today, per orders from [facility]. Pneumococcal meningitis with osteomyelitis: Continue ceftriaxone 2 g daily through February 27 Herpetic lesions: Continue acyclovir. He may need a prolonged course of acyclovir. Thrush: Continue Mycelex BPH and history of urinary retention: Continue Parker catheter per request. May need urologic consultation. 02/01/17 J Carlos to his scalp incision and abdominal incision were removed yesterday. Nursing staff plans to go gently clean the scalp incision to remove the scab formation. Herpetic lesions have improved since yesterday. Continue acyclovir, we may need to consider extending the course. If they do not resolve. Continue Mycelex for thrush. Continue ceftriaxone 2 g daily through 02/27/17 for pneumococcal meningitis with osteomyelitis. Consider Parker catheter removal (discussed with prior to discontinuation, since patient was very difficult to catheterize), or urologic consult. 02/03: [place]. 1. Pneumococcal meningitis with osteomyelitis and leukocytosis: * [place] to scalp incision and abdominal incision were removed on 01/31. Incision sites are clean, dry and intact. Continue to monitor incisions closely for signs of infection. * Continue ceftriaxone 2 g daily through 02/27/17 for pneumococcal meningitis with osteomyelitis * Recheck CBC and BMP in AM to monitor blood counts, electrolytes and renal function in AM. * Recheck CRP on 02/04 to monitor osteomyelitis 2. Herpes Labialis * Herpetic lesions remain but reportedly are improving. Continue acyclovir - we may need to consider extending the course if lesions do not resolve. 3. Non-Hodgkin Lymphoma * Monitor as outpatient. 4. Asthma * Continue to inhalers as directed. 5. BPH with acute urinary retention * Parker placed on 01/26 due to retention. * Consider Parker catheter removal (discuss with prior to discontinuation, since patient was very difficult to catheterize), or urologic consult. * Continue flomax for BPH. 6. Thrush * Continue Mycelex for thrush. MK BERMEO Feb 03, 2017 10:58
[2017-02-03 16:00] VITALS: BP 122/68; PULSE 95; RESP 20; TEMP 98.3; O2SAT 97
[2017-02-03] MEDS: ACETAMINOPHEN 325 MG TABLET PO PRN ×2 (18:24→23:17)
--- NOTE | 2017-02-03 19:08 | NUR ---
SHIFT SUMMARY VINOD HAS BEEN PLEASANT AND COOPERATIVE ALL DAY, WAS ABLE TO TAKE A SHOWER WITH AID. HE HAD GOOD APPETITE. HE DID COMPLAIN OF PAIN TO HIS HEAD AFTER DINNER, SO TYLENOL WAS ADMINISTERED. PTS IS NOW AT BEDSIDE. HIS PICC LINE IS STILL FLUSHING AND WORKING WELL. PT IS NOW RESTING IN BED. CHAN STILL DRAINING ANTHONY COLORED URINE. HE HAD GOOD OUTPUT CHARTED UNDER OUTPUT VALUES. INCISION TO HEAD AND ABD APPEAR TO BE HEALING WELL, NO DRAINAGE OR REDNESS NOTED.
[2017-02-03 20:14] VITALS: BP 115/68; PULSE 88; RESP 16; TEMP 98.6; O2SAT 95
[2017-02-03 21:40] VITALS: PULSE 88; RESP 16
--- NOTE | 2017-02-03 22:58 | PNPDOC ---
IRU Subjective Date DATE: 02/03/17 TIME: 22:57 Subjective Patient was out to eat meals today, did do exercises on his own. Has been working with PT and OT. IRU Objective Vital Signs Vital signs Vital Signs Date Time Temp Pulse Resp B/P Pulse Ox O2 Delivery O2 Flow Rate FiO2 02/03/17 20:14 98.6 88 16 115/68 95 Room Air Height (Feet): 5 Height (Inches): 10.00 Weight (Kilograms): 81.000 General General Appearance: Alert, Orientated x 2 Respiratory (Brief) Respiratory: FOUND: clear all ling, equal bilaterally Cardiovascular (Brief) Cardiac: FOUND: regular rate, regular rhythm Integumentary (Brief) Comments Lesions still visible on lips. Assessment & Plan Problems: (1) Myopathy Assessment & Plan: Patient is cooperative, PT and OT will continue with treatment plan. (2) Hearing loss Status: Acute Assessment & Plan: Using whiteboard for discussion. (3) Pneumococcal meningitis Status: Acute Assessment & Plan: Managed by medical (4) Urinary retention Status: Acute Assessment & Plan: Managed by medical, Parker in place. (5) Non Hodgkin's lymphoma Status: Chronic Qualifiers: Non-Hodgkin lymphoma type: B-cell Lymphoma site: unspecified region Assessment & Plan: Managed by medical, will resume treatment on discharge. Code Status Full Code Interventions to Obtain Goals PT Treatment Plan: Therapeutic Exercise, Gait Training, Functional Activities , Patient/Family Education, Balance/Proprioception OT Treatment Plan: ADL's (basic care), Cognitive Skills Develop., Ther. Exercise for ADL's, UE Functional Training, Balance Training, Pt./Family Education, IADL's ST Treatment Plan: Communication Retraining Hospital Course Summary Disclaimer The hospital course summary below is not to be considered part of the above Progress Note. Hospital Course Summary 01/30/17 Agree with admission to IRU under the care of Dr Barahona for ongoing rehabilitation and strengthening Craniotomy j carlos may be removed on 01/31/17 Ceftriaxone twice a day through 01/30/17. Then decrease to daily through . Appreciated ongoing ID management as per Dr Sotomayor Acute hearing loss is likely secondary to acute meningitis. This may be a chronic defect. EEG completed at [facility] revel some abnormalities, however not seizures. He was placed on Keppra. Continue with urinary cath for urinary retention. is hesitant to have this removed because it was very difficult to replace it. All oncology treatments currently on hold. He has been under the care of Dr Patel. 01/31/17 Incisions have healed well. Will remove craniotomy and abdominal j carlos today, per orders from [facility]. Pneumococcal meningitis with osteomyelitis: Continue ceftriaxone 2 g daily through February 27 Herpetic lesions: Continue acyclovir. He may need a prolonged course of acyclovir. Thrush: Continue Mycelex BPH and history of urinary retention: Continue Parker catheter per request. May need urologic consultation. 02/01/17 J Carlos to his scalp incision and abdominal incision were removed yesterday. Nursing staff plans to go gently clean the scalp incision to remove the scab formation. Herpetic lesions have improved since yesterday. Continue acyclovir, we may need to consider extending the course. If they do not resolve. Continue Mycelex for thrush. Continue ceftriaxone 2 g daily through 02/27/17 for pneumococcal meningitis with osteomyelitis. Consider Parker catheter removal (discussed with prior to discontinuation, since patient was very difficult to catheterize), or urologic consult. 02/03: [place]. 1. Pneumococcal meningitis with osteomyelitis and leukocytosis: * J Carlos to scalp incision and abdominal incision were removed on 01/31. Incision sites are clean, dry and intact. Continue to monitor incisions closely for signs of infection. * Continue ceftriaxone 2 g daily through 02/27/17 for pneumococcal meningitis with osteomyelitis * Recheck CBC and BMP in AM to monitor blood counts, electrolytes and renal function in AM. * Recheck CRP on 02/04 to monitor osteomyelitis 2. Herpes Labialis * Herpetic lesions remain but reportedly are improving. Continue acyclovir - we may need to consider extending the course if lesions do not resolve. 3. Non-Hodgkin Lymphoma * Monitor as outpatient. 4. Asthma * Continue to inhalers as directed. 5. BPH with acute urinary retention * Parker placed on 01/26 due to retention. * Consider Parker catheter removal (discuss with prior to discontinuation, since patient was very difficult to catheterize), or urologic consult. * Continue flomax for BPH. 6. Thrush * Continue Mycelex for thrush. SHEYLA BARAHONA MD Feb 03, 2017 22:58
--- NOTE | 2017-02-04 02:00 | NUR ---
Chart Check 24 hour chart check completed
[2017-02-04 05:25] LABS: BASOPHILS # (AUTO) 0.1 T/MM3 (0-0.2); BASOPHILS % (AUTO) 0.7 % (0-2); EOSINOPHILS # (AUTO) 0.2 T/MM3 (0-0.5); EOSINOPHILS % (AUTO) 1.9 % (0-4); HCT - HEMATOCRIT 36.6 % (41-53); HGB - HEMOGLOBIN 11.6 GM/DL (13.5-17.5); IMMATURE GRANULOCYTE # (AUTO) 0.05 T/MM3 (0.00-0.03); IMMATURE GRANULOCYTE % (AUTO) 0.4 % (0.0-0.5); LYMPHOCYTES # (AUTO) 1.4 T/MM3 (1-4.8); LYMPHOCYTES % (AUTO) 12.5 % (23-45); MEAN CORPUSCULAR HGB 28.7 UUG (26-34); MEAN CORPUSCULAR HGB CONC(MCHC 31.7 GM/DL (31-37); MEAN CORPUSCULAR VOLUME 90.6 UM3 (80-100); MEAN PLATELET VOLUME 8.6 UM3 (9.4-12.4); MONOCYTES # (AUTO) 1.1 T/MM3 (0-0.8); MONOCYTES % (AUTO) 9.6 % (0-9.0); NEUTROPHILS #(AUTO)-ABSOLUTE 8.5 T/MM3 (1.8-7.7); NEUTROPHILS % (AUTO) 74.9 % (33-66); RED BLOOD COUNT 4.04 M/MM3 (4.50-5.90); WBC - WHITE BLOOD COUNT 11.3 T/MM3 (4.5-11.0)
[2017-02-04 05:37] LABS: ANION GAP 13 MEQ/L (5-15); BUN/CREATININE RATIO 19 RATIO (6-26); CALCIUM 8.9 MG/DL (8.4-10.2); CHLORIDE 103 MEQ/L (98-107); CO2 - CARBON DIOXIDE 24 MEQ/L (22-30); CREATININE 0.7 MG/DL (0.8-1.5); GLOMERULAR FILTRATION RATE 115; GLUCOSE 106 MG/DL (75-110); POTASSIUM 4.5 MEQ/L (3.6-5); SODIUM 140 MEQ/L (134-144)
[2017-02-04 05:47] LABS: C-REACTIVE PROTEIN 129.1 MG/L (0-9)
[2017-02-04] MEDS: CLOTRIMAZOLE 10 MG TROCHE PO SCH ×5 (06:11→21:39)
[2017-02-04] MEDS: ACYCLOVIR 200 MG CAPSULE PO SCH ×5 (06:11→21:38)
--- NOTE | 2017-02-04 07:00 | NUR ---
SUMMARY VINOD IS A PLEASANT AND RESERVED GENTLEMAN. HE AND STAFF HAVE COMMUNICATED VIA A WHITE ERASABLE BOARD. APPROPRIATE USE OF CALL LIGHT.HE IS ABLE TO MAKE HIS NEEDS KNOWN.HE HAS REMAINED IN BED . HE WAS MEDICATED WITH TYLENOL FOR REPORT OF A HEADACHE.SEE EMAR. WHILE RESTING IN BED HIS SIDE RAILS UP X TWO BEDALARMS ON AND HOB ELEVATED. HE IS ABLE TO TURN SELF W/OUT ASSISTANCE OF STAFF. CALL LIGHT WITH IN REACH. CHAN TO DD WITH STRAW COLORED URINE. VSS .PICC LINE TO RIGHT UPPER ARM INTACT AND FLUSHES W/OUT DIFFICULTY. AT BEDSIDE FOR THE EVENING.
[2017-02-04 08:00] VITALS: BP 117/69; PULSE 100; RESP 16; TEMP 98.2; O2SAT 95
[2017-02-04 08:20] VITALS: PULSE 100; RESP 16
[2017-02-04] MEDS: DOCUSATE SODIUM 100 MG CAPSULE PO SCH ×2 (08:26→21:37)
[2017-02-04] MEDS: TAMSULOSIN 0.4 MG CAPSULE PO SCH ×2 (08:26→21:38)
[2017-02-04] MEDS: CEFTRIAXONE 2 G in NORMAL SALINE 100 ML IV SCH (08:26)
[2017-02-04] MEDS: LEVETIRACETAM 500 MG TABLET PO SCH ×2 (08:26→21:38)
[2017-02-04] MEDS: POLYETHYL.GLYCOL 3350 PACKET 17gm PO SCH (08:26)
[2017-02-04] MEDS: SERTRALINE 25 MG TABLET PO SCH (08:27)
--- NOTE | 2017-02-04 14:36 | STDAILYN ---
ST Daily Note Date/Time DATE: 02/04/17 TIME: 11:30 Subjective Comment Pt was alert and interactive with staff and visitors. White board used to communication due to hearing loss. Orientations: x 3, Alert, Cooperative Chief Complaint: bacterial meningitis, aphasia,hearing loss *Speech Therapy Impressions 1. Pt will name words independently with 9/10 accuracy. Pt independently named 20/20 words. Pt typed name of pictures: 14/20 independently, 1/20 self corrected, 4/20 cued and 1.20 in error. 2. Pt will formulate phrases/sentences to describe activity with 9/10 accuracy. Pt formulated sentences to describe activity w/ 17/20 accuracy. 3. Pt will follow one step written direction with 9/10 accuracy. Pt repeated visual sequence x12 on initial trial and 6 on secondary trial. 4. Pt will read short paragraph and answer questions with 9/10 accuracy. Pt read sentences and filled in final word with 43/50 accuracy. He read 48/50 sentences accurately with mild paraphasias "squeezing for sneezing, vegetable picker for pucker. Pt interacted well with staff and visitors using writing rather than speech. In the afternoon session pt's was present. We discussed speech goals and progress. Pt verbal expression was significantly improved at basic conversation level. asked if his hearing loss was permanent. TOWEL ROLLING MACHINE OPERATOR recommended discussing that with Dr. Cano. At this point we will provide written information for Malcolm. Pt has a laptop at home that his will bring in so we can type questions and conversations with him rather than relying on the a white board. Speech will introduce the bogie board as well. In ST Treatment Plan: Communication Retraining ST Treatment Plan Frequency: five times per week Treatment Plan Duration: three weeks Plan of Care Comment: Continue POC Start Treatment 1: 09:15 Stop Treatment 1: 10:10 Start Treatment 2: 14:15 Stop Treatment 2: 14:30 Treatment Duration #1: ST Treatment Charge: Speech Treatment Minutes of Individual Therapy: 45 Treatment Duration #2: ST Treatment Charge: Speech Treatment Minutes of Individual Therapy: 15 ST FIM Comprehension Ability: 3 Moderate Assistance Social Interaction: 4 Minimal Assistance Problem Solvin Moderate Assistance Memory: 3 Moderate Assistance Expression Ability: 4 Minimal Assistance Swallowin Modified Campbell RAAD VARMA MS [facility]TOWEL ROLLING MACHINE OPERATOR February 04, 2017 11:42
[2017-02-04 16:11] VITALS: BP 118/73; PULSE 90; RESP 18; TEMP 99.3; O2SAT 96
[2017-02-04 18:42] VITALS: TEMP 98.5
[2017-02-04 19:34] VITALS: BP 126/65; PULSE 95; RESP 18; TEMP 98.1; O2SAT 98
--- NOTE | 2017-02-04 19:34 | NUR ---
Shift Summary Pt is resting well in bed at this time. He is unable to hear staff speak to him, communication is through a white board. Ambulates well with assist of 1, FWW, and gait belt. Has a Parker catheter in place to dependent drainage, has yellow to straw colored urine. Ate well for meals, did not need assist with his tray, ambulated to the dining room. Worked well with therapy this shift. Needed total assist with empting his Parker catheter. When in bed the bed alarm is in use and call light is within reach.
[2017-02-04] MEDS: QUETIAPINE 25 MG TABLET PO PRN (21:39)
--- NOTE | 2017-02-04 22:57 | PNPDOC ---
IRU Subjective Date DATE: 02/04/17 TIME: 22:56 Subjective Working with PT and OT and increasing strength and feels more stable. IRU Objective Vital Signs Vital signs Vital Signs Date Time Temp Pulse Resp B/P Pulse Ox O2 Delivery O2 Flow Rate FiO2 02/04/17 19:34 98.1 95 18 126/65 98 Room Air Height (Feet): 5 Height (Inches): 10.00 Weight (Kilograms): 81.000 General General Appearance: Alert, Orientated x 2 Respiratory (Brief) Respiratory: FOUND: clear all ling, equal bilaterally Cardiovascular (Brief) Cardiac: FOUND: regular rate, regular rhythm Laboratory Laboratory Laboratory Tests Test 02/04/17 04:46 White Blood Count 11.3T/MM3 Red Blood Count 4.04M/MM3 Hemoglobin 11.6GM/DL Hematocrit 36.6% Mean Corpuscular Volume 90.6UM3 Mean Corpuscular Hemoglobin 28.7UUG Mean Corpuscular Hemoglobin Concent 31.7GM/DL RDW Standard Deviation 43.6FL Platelet Count 383T/MM3 Mean Platelet Volume 8.6UM3 Immature Granulocyte % (Auto) 0.4% Neutrophils (%) (Auto) 74.9% Lymphocytes (%) (Auto) 12.5% Monocytes (%) (Auto) 9.6% Eosinophils (%) (Auto) 1.9% Basophils (%) (Auto) 0.7% Absolute Immature Granulocyte (auto 0.05T/MM3 Absolute Neutrophils (auto) 8.5T/MM3 Absolute Lymphocytes (auto) 1.4T/MM3 Absolute Monocytes (auto) 1.1T/MM3 Absolute Eosinophils (auto) 0.2T/MM3 Absolute Basophils (auto) 0.1T/MM3 Turbidity < 20 Sodium Level 140MEQ/L Potassium Level 4.5MEQ/L Chloride Level 103MEQ/L Carbon Dioxide Level 24MEQ/L Anion Gap 13MEQ/L Blood Urea Nitrogen 13.0MG/DL Creatinine 0.7MG/DL Glomerular Filtration Rate Calc 115 BUN/Creatinine Ratio 19RATIO Glucose Level 106MG/DL Calculated Osmolality 269MOSM/KG Calcium Level 8.9MG/DL Icterus Index < 2 C-Reactive Protein 129.1MG/L Chemistry Specimen Hemolysis < 15 Assessment & Plan Problems: (1) Myopathy Assessment & Plan: Cont working with PT and OT, reeval on saturday at team meeting. (2) Hearing loss Status: Acute Assessment & Plan: Definitely creating communication issues for him. Cont with OT. (3) Pneumococcal meningitis Status: Acute (4) Urinary retention Status: Acute (5) Non Hodgkin's lymphoma Status: Chronic Qualifiers: Non-Hodgkin lymphoma type: B-cell Lymphoma site: unspecified region Code Status Full Code Interventions to Obtain Goals PT Treatment Plan: Therapeutic Exercise, Gait Training, Functional Activities , Patient/Family Education, Balance/Proprioception OT Treatment Plan: ADL's (basic care), Cognitive Skills Develop., Ther. Exercise for ADL's, UE Functional Training, Balance Training, Pt./Family Education, IADL's ST Treatment Plan: Communication Retraining Hospital Course Summary Disclaimer The hospital course summary below is not to be considered part of the above Progress Note. Hospital Course Summary 01/30/17 Agree with admission to IRU under the care of Dr Barahona for ongoing rehabilitation and strengthening Craniotomy j carlos may be removed on 01/31/17 Ceftriaxone twice a day through 01/30/17. Then decrease to daily through . Appreciated ongoing ID management as per Dr Sotomayor Acute hearing loss is likely secondary to acute meningitis. This may be a chronic defect. EEG completed at [place] did revel some abnormalities, however not seizures. He was placed on Keppra. Continue with urinary cath for urinary retention. is hesitant to have this removed because it was very difficult to replace it. All oncology treatments currently on hold. He has been under the care of Dr Patel. 01/31/17 Incisions have healed well. Will remove craniotomy and abdominal j carlos today, per orders from [place]. Pneumococcal meningitis with osteomyelitis: Continue ceftriaxone 2 g daily through February 27 Herpetic lesions: Continue acyclovir. He may need a prolonged course of acyclovir. Thrush: Continue Mycelex BPH and history of urinary retention: Continue Parker catheter per request. May need urologic consultation. 02/01/17 J Carlos to his scalp incision and abdominal incision were removed yesterday. Nursing staff plans to go gently clean the scalp incision to remove the scab formation. Herpetic lesions have improved since yesterday. Continue acyclovir, we may need to consider extending the course. If they do not resolve. Continue Mycelex for thrush. Continue ceftriaxone 2 g daily through 02/27/17 for pneumococcal meningitis with osteomyelitis. Consider Parker catheter removal (discussed with prior to discontinuation, since patient was very difficult to catheterize), or urologic consult. 02/03: [place]. 1. Pneumococcal meningitis with osteomyelitis and leukocytosis: * [place] to scalp incision and abdominal incision were removed on 01/31. Incision sites are clean, dry and intact. Continue to monitor incisions closely for signs of infection. * Continue ceftriaxone 2 g daily through 02/27/17 for pneumococcal meningitis with osteomyelitis * Recheck CBC and BMP in AM to monitor blood counts, electrolytes and renal function in AM. * Recheck CRP on 02/04 to monitor osteomyelitis 2. Herpes Labialis * Herpetic lesions remain but reportedly are improving. Continue acyclovir - we may need to consider extending the course if lesions do not resolve. 3. Non-Hodgkin Lymphoma * Monitor as outpatient. 4. Asthma * Continue to inhalers as directed. 5. BPH with acute urinary retention * Parker placed on 01/26 due to retention. * Consider [place] catheter removal (discuss with prior to discontinuation, since patient was very difficult to catheterize), or urologic consult. * Continue flomax for BPH. 6. Thrush * Continue Mycelex for thrush. SHEYLA BARAHONA MD February 04, 2017 22:57
--- NOTE | 2017-02-05 02:41 | NUR ---
Chart Check 24 hour chart check completed
--- NOTE | 2017-02-05 05:08 | NUR ---
SHIFT SUMMARY Pt A&O, afebrile, VSS, pt remains on RA, ANGEL PICC remains saline locked, adequate U/O per [place] to DD, no BM this TOD. Pt slept well this TOD and remained in bed, pt turns self independently. Pt EMMONAK and communicates via dry erase board at the bedside. Pt requested Seroquel to aid in sleep at HS. Pt educated on all aspects of plan of care, all questions answered and cares explained via dry erase board. All fall precautions in place, bed alarm on, personal items within reach, utilizes call system appropriately. Will continue to monitor.
[2017-02-05] MEDS: CLOTRIMAZOLE 10 MG TROCHE PO SCH ×5 (06:19→21:50)
[2017-02-05] MEDS: ACYCLOVIR 200 MG CAPSULE PO SCH ×5 (06:20→21:50)
[2017-02-05 08:00] VITALS: BP 87/60; PULSE 127; RESP 18; TEMP 98.6; O2SAT 98
[2017-02-05 08:30] VITALS: RESP 14
[2017-02-05] MEDS: DOCUSATE SODIUM 100 MG CAPSULE PO SCH ×2 (09:41→21:50)
[2017-02-05] MEDS: CEFTRIAXONE 2 G in NORMAL SALINE 100 ML IV SCH (09:41)
[2017-02-05] MEDS: LEVETIRACETAM 500 MG TABLET PO SCH ×2 (09:41→21:50)
[2017-02-05] MEDS: POLYETHYL.GLYCOL 3350 PACKET 17gm PO SCH (09:42)
[2017-02-05] MEDS: TAMSULOSIN 0.4 MG CAPSULE PO SCH ×2 (09:42→21:50)
[2017-02-05] MEDS: SERTRALINE 25 MG TABLET PO SCH (09:42)
--- NOTE | 2017-02-05 14:09 | STDAILYN ---
ST Daily Note Date/Time DATE: 02/05/17 TIME: 13:54 Subjective Comment Pt was alert and cooperative with no complaint of pain. Pt's reported that his voice sounds very different now in terms of pitch. We talked about the change in his auditory feedback. She brought in his laptop so he can use it instead of white board. Orientations: x 3, Alert, Cooperative, Motivated Chief Complaint: bacterial meningitis, post craniotomy, hearing loss *Speech Therapy Impressions 1.Pt will name words independently with 9/10 accuracy. Pt named pictures independently with 17/20 accuracy. 2. Pt will formulate phrases/sentences to describe activity with 9/10 accuracy. Pt formulated connected sentences to describe his work and projects with 16/ 20 accuracy with minimal paraphasias. 3. Pt will follow one step verbal direction with 9/10 accuracy. Pt followed one step written direction with 81% accuracy 4. Pt will read short paragraph and answer questions with 9/10 accuracy. Pt read 2 sentence paragraphs and answered question with 8/10 accuracy. Pt was encouraged to talk more and use longer and more complex sentences. We set up notepad on his lap top with large print so visitor/staff can type questions and information and pt can respond verbally. Pt and his tried this procedure successfully. ST Treatment Plan: Communication Retraining ST Treatment Plan Frequency: five times per week Treatment Plan Duration: three weeks Plan of Care Comment: Continue POC Start Treatment 1: 08:55 Stop Treatment 1: 09:35 Start Treatment 2: 13:10 Stop Treatment 2: 13:45 Treatment Duration #1: ST Treatment Charge: Speech Treatment Minutes of Individual Therapy: 40 Treatment Duration #2: ST Treatment Charge: Speech Treatment Minutes of Individual Therapy: 35 RAAD VARMA MS CCC-CRYPTOLOGIC TECHNICIAN TECHNICAL February 05, 2017 14:01
--- NOTE | 2017-02-05 16:12 | PNPDOC ---
Subjective Date DATE: 02/05/17 TIME: 15:59 Kim Fowler is seen this afternoon while napping. He does arouse during examination. All communication is done through writing on the white board. He denies having any pain or shortness of breath. Continues to have some mild hepatic lesions to oral mucosa. Scalp incision is healing well. Parker cath remains intact and is draining without difficulty. Objective Vital Signs Vital signs Vital Signs Date Time Temp Pulse Resp B/P Pulse Ox O2 Delivery O2 Flow Rate FiO2 02/05/17 08:30 14 02/05/17 08:00 98.6 127 87/60 98 Room Air Height (Feet): 5 Height (Inches): 10.00 Weight (Kilograms): 81.000 General General Appearance: Alert, Orientated x 3, Cooperative, No Acute Distress Eyes (Brief) Eyes: FOUND: EOMI ENMT (Brief) ENMT: FOUND: mucosa moist, normal dentition, NOT FOUND: pharnyx erythema Neck (Brief) Neck: FOUND: midline, NOT FOUND: adenopathy, carotid bruits, tracheal deviation Respiratory (Brief) Respiratory: FOUND: clear all ling, equal bilaterally, NOT FOUND: wheezes Cardiovascular (Brief) Cardiac: FOUND: regular rate, regular rhythm, NOT FOUND: murmur, pedal edema Capillary Refill: <2 sec Abdomen (Brief) Abdominal: FOUND: BS normo active x4, soft, NOT FOUND: distended, tender Lymphatic (Brief) Lymphatic: NOT FOUND: adenopathy Musculoskeletal (Brief) Musculoskeletal: NOT FOUND: tenderness Integumentary (Brief) Integumentary: FOUND: dry, pink, warm Neurologic (Brief) Neurological: FOUND: cranial 2-12 intact Psychiatric (Brief) Psychiatric: FOUND: alert, attentive, normal affect, oriented Laboratory Laboratory Laboratory Tests 02/04/17 04:46 Laboratory Tests 02/04/17 04:46 Assessment & Plan Problems: (1) Pneumococcal meningitis Status: Acute (2) Osteomyelitis Status: Acute Qualifiers: Osteomyelitis location: other site Assessment & Plan: Posterior table of the right frontal sinus and posterior wall of the maxilla; bifrontal craniotomy with cranialization of the frontal sinuses on 01/[address] 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 Appreciate ongoing recommendations by Dr Sotomayor. Continue acyclovir for treatment of oral herpes Parker cath remains intact due to urinary retention. Continue Flomax. Continue to monitor routine labs. Encourage work with PT and OT for ongoing strengthening Code Status Full Code Hospital Course Summary Disclaimer The hospital course summary below is not to be considered part of the above Progress Note. Hospital Course Summary 01/30/17 Agree with admission to IRU under the care of Dr Cano for ongoing rehabilitation and strengthening Craniotomy j carlos may be removed on 01/31/17 Ceftriaxone twice a day through 01/30/17. Then decrease to daily through . Appreciated ongoing ID management as per Dr Sotomayor Acute hearing loss is likely secondary to acute meningitis. This may be a chronic defect. EEG completed at [place] did revel some abnormalities, however not seizures. He was placed on Keppra. Continue with urinary cath for urinary retention. is hesitant to have this removed because it was very difficult to replace it. All oncology treatments currently on hold. He has been under the care of Dr Patel. 01/31/17 Incisions have healed well. Will remove craniotomy and abdominal j carlos today, per orders from [place]. Pneumococcal meningitis with osteomyelitis: Continue ceftriaxone 2 g daily through February 27 Herpetic lesions: Continue acyclovir. He may need a prolonged course of acyclovir. Thrush: Continue Mycelex BPH and history of urinary retention: Continue Parker catheter per request. May need urologic consultation. 02/01/17 J Carlos to his scalp incision and abdominal incision were removed yesterday. Nursing staff plans to go gently clean the scalp incision to remove the scab formation. Herpetic lesions have improved since yesterday. Continue acyclovir, we may need to consider extending the course. If they do not resolve. Continue Mycelex for thrush. Continue ceftriaxone 2 g daily through 02/27/17 for pneumococcal meningitis with osteomyelitis. Consider Parker catheter removal (discussed with prior to discontinuation, since patient was very difficult to catheterize), or urologic consult. 02/03: [place]. 1. Pneumococcal meningitis with osteomyelitis and leukocytosis: * [place] to scalp incision and abdominal incision were removed on 01/31. Incision sites are clean, dry and intact. Continue to monitor incisions closely for signs of infection. * Continue ceftriaxone 2 g daily through 02/27/17 for pneumococcal meningitis with osteomyelitis * Recheck CBC and BMP in AM to monitor blood counts, electrolytes and renal function in AM. * Recheck CRP on 02/04 to monitor osteomyelitis 2. Herpes Labialis * Herpetic lesions remain but reportedly are improving. Continue acyclovir - we may need to consider extending the course if lesions do not resolve. 3. Non-Hodgkin Lymphoma * Monitor as outpatient. 4. Asthma * Continue to inhalers as directed. 5. BPH with acute urinary retention * Parker placed on 01/26 due to retention. * Consider Parker catheter removal (discuss with prior to discontinuation, since patient was very difficult to catheterize), or urologic consult. * Continue flomax for BPH. 6. Thrush * Continue Mycelex for thrush. * * 02/05/17 Continue Ceftriaxone 2 g daily through 02/27/17 for pneumococcal meningitis with osteomyelitis. Appreciate ongoing recommendations by Dr Sotomayor. Continue acyclovir for treatment of oral herpes Parker cath remains intact due to urinary retention. Continue Flomax. Continue to monitor routine labs. Encourage work with PT and OT for ongoing strengthening TAWANNA MORALES APRN February 05, 2017 16:02
[2017-02-05 16:38] VITALS: BP 115/69; PULSE 86; RESP 20; TEMP 98.2; O2SAT 97
[2017-02-05] MEDS: ACETAMINOPHEN 325 MG TABLET PO PRN (18:21)
--- NOTE | 2017-02-05 19:30 | NUR ---
Summary VS's stable. Pt. is on RA. He is [place] and white board is implemented to help communicate. Pt. is very pleasant and cooperative. Parker is patent and draining clear, yellow urine. He is minimal assist with transfers x1 with FWW and gait belt. Incisions to head and abdomen are [place]. No drainage, or s/s of infection noted. Pt. did report he had a headache at dinner time. PRN Tylenol administered. Please see eMAR. Pt. is currently resting in bed. Alarm is on. Report has been past on to shift supervisor.
[2017-02-05 20:30] VITALS: RESP 14
[2017-02-05 20:45] VITALS: BP 119/73; PULSE 88; RESP 18; TEMP 98.4; O2SAT 96
[2017-02-05] MEDS: QUETIAPINE 25 MG TABLET PO PRN (21:50)
[2017-02-06] MEDS: ACYCLOVIR 200 MG CAPSULE PO SCH ×5 (06:27→22:06)
[2017-02-06] MEDS: CLOTRIMAZOLE 10 MG TROCHE PO SCH ×5 (06:27→22:06)
--- NOTE | 2017-02-06 06:55 | NUR ---
SHIFT SUMMARY Patient had company until bedtime this shift. Utilized communication board to effectively converse due to patient's extreme hearing difficulty. His company reported that he was not hard of hearing before his illness and surgery and they are hopeful it will return. Ambulated with min assist with FWW to bathroom. Performed own ashley care. Did have BM this shift but flushed it before staff could see it. Is very private, preferring to keep door shut, and is not very talkative this shift with staff, but did visit with his visitors.
[2017-02-06] MEDS: BUDESONIDE/FORMOTEROL 80/4.5mcg INHALER ORAL INH PRN (07:17)
[2017-02-06 08:53] VITALS: BP 111/64; PULSE 94; RESP 18; TEMP 98; O2SAT 94
--- NOTE | 2017-02-06 09:13 | PNPDOC ---
Subjective Date DATE: 02/06/17 TIME: 09:13 Subjective Mr. Blackburn was seen after he had breakfast. He reports some headache, but in general, indicates he feels well. Objective Vital Signs: RN Vital Signs have been reviewed: Yes, Temperature: 98.0, Heart Rate: 94, Respiratory Rate: 18, BP: 111/64, Pulse Oximetry: 96 Height (Feet): 5 Height (Inches): 10.00 General: FOUND: Alert, NOT FOUND: Acute Distress Skin: FOUND: Other (crani incision without j carlos, no redness or drainage, some scabbing), NOT FOUND: Rash HEENT: FOUND NC/AT, FOUND Other (ulcers improved, but still visible on soft palate, and L lower lip) Neck: NOT FOUND: Meningismus Cardiac: FOUND: Regular Rate/Rhythm, NOT FOUND: Murmur, Pitting Edema Lungs: FOUND: Clear to Auscultation, NOT FOUND: Respiratory Distress Abdomen: FOUND: Non-tender, Normal Bowel Sounds, Soft Extremities: NOT FOUND Edema (Bilateral Lower Extremitites) Neurological: FOUND A/A/A, FOUND Other (hard of hearing) Psychological: FOUND Other (appears intact and appropriate) IV Site: PICC Antbiotics Ceftriaxone Laboratory Laboratory Tests 02/04/17 04:46 Laboratory Tests 02/04/17 04:46 Reviewed: Consult/Progress Notes Assessment & Plan Assessment IMPRESSION 1. Sepsis secondary to pneumococcal meningitis, resistant to penicillin. 2. Sinusitis of the frontal and maxillary sinuses with bony erosion of the posterior wall of the maxilla and involving the inner table of the skull adjacent to the right frontal sinus, status post bifrontal craniotomy for cranialization of frontal sinuses with harvest of abdominal fat graft on January 19, 2017. 3. Altered mental status. 4. Non-Hodgkin's lymphoma of the small bowel, status post resection October 2016 and undergoing treatment with rituximab currently with Dr. Patel in [place]. 5. Benign prostatic hypertrophy. 6. Acute respiratory failure, resolved. 7. Herpes labialis with significant ulcerations noted on the soft palate and tongue, on acyclovir since January 23. 8. Dysphagia. 9. Hearing loss, most likely secondary to meningitis. Plan/Intensity of Service RECOMMENDATIONS I would continue ceftriaxone 2 g IV daily through February 27 to complete a 6-week course for osteomyelitis of the cranium. I would recommend monitoring CBC with differential and a BMP every Saturday while he is on the IV antibiotics. I would continue with oral acyclovir for now since he continues to have lesions, although these are improving. ALEXANDRA ZHAO MD February 06, 2017 09:13
--- NOTE | 2017-02-06 10:20 | STDAILYN ---
ST Daily Note Date/Time DATE: 02/06/17 TIME: 10:03 Subjective Comment Pt was alert and talkative today. No complaint of pain. Orientations: x 3, Alert, Cooperative Chief Complaint: Bacterial meningitis, post craniotomy Pain: No Person(s) Educated: Patient Instruction Understanding Demo: Pt. verbalizes understand Education Comment Strategies for hearing support discussed: reading lips & expression, using his laptop for written questions, information, enabling captions on tv programming. Pt verbalized understanding. *Speech Therapy Impressions 1. Pt will name words independently with 9/10 accuracy. 10/10 accuracy, goal met. 2. Pt will formulate phrases/sentences to describe activity with 9/10 accuracy. 19/20 accuracy, goal met. 3. Pt will follow one step verbal direction with 9/10 accuracy. Goal changed to 2-3 step written direction with 9/10 accuracy. 4. Pt will read short paragraph and answer questions with 9/10 accuracy. Goal modified to read paragraph and retell story with 9/10 acc. Pt was able to read large print (font size 48) from computer with therapist sitting next to bed. Pt was encouraged to expand his verbal responses to staff and visitors. Speech was intelligible in connected sentences with goal to produce smooth conversational speech. Hearing strategies of lip and expression reading, using white board or computer for questions and information and use of closed captions. Staff encouraged to look at pt's face while speaking and supplement with written info. ST Treatment Plan: Communication Retraining ST Treatment Plan Frequency: five times per week Treatment Plan Duration: three weeks Plan of Care Comment: Continue POC Start Treatment 1: 09:00 Stop Treatment 1: 10:00 Treatment Duration : ST Treatment Charge: Speech Treatment (60) Minutes of Individual Therapy: 60 ST FIM Comprehension Ability: 3 Moderate Assistance Social Interaction: 4 Minimal Assistance Problem Solvin Moderate Assistance Memory: 4 Minimal Assistance Expression Ability: 4 Minimal Assistance Swallowin Modified [place] RAAD VARMA MS CCC-REFRIGERATING TECHNICIAN February 06, 2017 10:07
[2017-02-06] MEDS: CEFTRIAXONE 2 G in NORMAL SALINE 100 ML IV SCH (11:05)
[2017-02-06] MEDS: SERTRALINE 25 MG TABLET PO SCH (11:06)
[2017-02-06] MEDS: POLYETHYL.GLYCOL 3350 PACKET 17gm PO SCH (11:06)
[2017-02-06] MEDS: DOCUSATE SODIUM 100 MG CAPSULE PO SCH ×2 (11:06→22:04)
[2017-02-06] MEDS: TAMSULOSIN 0.4 MG CAPSULE PO SCH ×2 (11:06→22:04)
[2017-02-06] MEDS: LEVETIRACETAM 500 MG TABLET PO SCH ×2 (11:06→22:04)
[2017-02-06 11:20] VITALS: PULSE 94; RESP 16
--- NOTE | 2017-02-06 12:49 | PDIRUTEAM ---
Multidisciplinary Team Meeting Nursing Hx Incontinence: No Bladder Goal: 7+ Complete Marianna Chang Y/N: Yes Bladder Continent or Incontine: Continent Incontinent Product Used: Patient's Own Underwear Number of Times Incontinent of: 0 Cleaning Ability-Bladder: 1 Total Assistance Bowel Goal: 7+ Complete Marianna Colostomy Y/N: No Bowel Incontinent/Continent: Continent Bowel Number of Accidents: 0 Number of times Incontinent of: 0 Cleaning Ability-Bowel: 7+ Complete Marianna Toileting Ability: 5 Supervision/Setup Vital Signs Vital Signs Date Time Temp Pulse Resp B/P Pulse Ox O2 Delivery O2 Flow Rate FiO2 02/06/17 11:20 94 16 02/06/17 08:53 98.0 111/64 94 Room Air Current Medications Current Medications Medications (Trade) Dose Ordered Sig/Korina Route PRN Reason Start Time Stop Time Status Last Admin Dose Admin Acyclovir (Zovirax) 200 mg 5XD PO 01/29/17 19:00 02/06/17 11:06 Clotrimazole (Mycelex) 10 mg 5XD PO 01/29/17 19:00 02/06/17 11:07 Docusate Sodium (Colace) 100 mg BID PO 01/29/17 21:00 02/06/17 11:06 Levetiracetam (Keppra) 500 mg BID PO 01/29/17 21:00 02/06/17 11:06 Quetiapine Fumarate (Seroquel) 25 mg HS PRN PO 01/29/17 16:30 02/05/17 21:50 Sertraline HCl (Zoloft) 25 mg DAILY PO 01/30/17 09:00 02/06/17 11:06 Tamsulosin HCl (FLOMAX 0.4 mg) 0.4 mg BID PO 01/29/17 21:00 02/06/17 11:06 Budesonide/ Formoterol Fumarate 2 puff 2 puff BID PRN ORAL INH 01/29/17 16:30 02/06/17 07:17 Ceftriaxone Sodium 2 g/Sodium Chloride 100 ml @ 200 mls/hr DAILY IV 01/31/17 09:00 02/27/17 10:00 02/06/17 11:05 Ceftriaxone Sodium/Sodium Chloride (Rocephin/NS) 100 ml @ 200 mls/hr Q12HR IV 01/29/17 21:00 01/30/17 21:29 DC 01/30/17 21:34 Polyethylene Glycol (Miralax) 17 g DAILY PO 01/29/17 17:30 02/06/17 11:06 Heparin Sodium (Porcine) (Heparin Flush) 200 unit Q12HR IV 01/30/17 21:00 02/06/17 12:00 Heparin Sodium (Porcine) (Heparin Flush) 200 unit Q12HR IV 01/30/17 21:00 02/06/17 12:01 Heparin Sodium (Porcine) (Heparin Flush) 200 unit Q12HR IV 01/30/17 21:00 02/06/17 12:01 Acetaminophen (Tylenol Regular Strength) 1-2 TABS PO Q5H PRN PO DISCOMFORT 02/01/17 06:15 02/05/17 18:[address] and draining. cont with chang on discharge. Speech-- [place] and requires white board to communicate, but doing well. Physical Therapy Bed Transfer Ability: 6 Modified Marianna Bed Transfer Assistance Needed: 1 Person Bed FIM Score Reason: Already dressed and in bed Chair Transfer Ability: 5 Supervision/Setup Chair Transfer Assistance Need: 1 Person Chair FIM Score Reason: sit<>stand from bedside with FWW supervision for safety Overall Wheelchair Transfer Ab: 4 Minimal Assistance Wheelchair Transfer Assistance: 1 Person Overall Toilet / Commode Trans: 5 Supervision/Setup Ambulation Ability: 4 Minimal Assistance Ambulation Assistance Needed: 1 Person Walk FIM Score Reason: Requires assist to correct LOB. Ambulation Distance: 435 Comments Improved progressing with therapy and strength. Occupational Therapy Grooming Ability: 5 Supervision/Setup Bathing Ability: 4 Minimal Assistance Upper Body Dressing Ability: 6 Modified Marianna Dressing-Upper FIM Score Reaso: Already dressed and in bed Lower Body Dressing Ability: 5 Supervision/Setup Lower Body Dressing Assistance: 1 Person Dressing-Lower FIM Score Reaso: Already dressed and in bed Toileting Assistance Needed: 1 Person Toileting FIM Score Reason: chang Comments Also improving FIMS due to increased effort. Care Plan Condition at time of discharge: Fair IRU Discharge Disposition: Home Health Service Interventions/Goals Fatigues quickly, but cooperative and working towards d/c. Plan to send home with , but need to make sure both will be safe. Home with homehealth. Walker/shower chair. Bring in for a session, to teach assist. Look at d/c saturday to give time to reach goals. Barriers to d/c -- endurance, iv antibiotics, hearing, strength. SHEYLA BARAHONA MD February 06, 2017 12:48
[2017-02-06 16:00] VITALS: BP 113/65; PULSE 105; RESP 16; TEMP 98.1; O2SAT 94
--- NOTE | 2017-02-06 19:30 | NUR ---
Summary VS's stable. Pt. is on RA. He is [place] and white board is implemented to help communicate. Pt. is very pleasant and cooperative. Parker is patent and draining clear, yellow urine. He is minimal assist with transfers x1 with FWW and gait belt. Incisions to head and abdomen are [place]. No drainage, or s/s of infection noted. Pt. has denied pain this shift. Pt. is currently resting in bed. Alarm is on. Report has been past on to mammography tech.
[2017-02-06 20:29] VITALS: BP 115/67; PULSE 90; RESP 16; TEMP 98.4; O2SAT 97
[2017-02-06] MEDS: QUETIAPINE 25 MG TABLET PO PRN (22:04)
[2017-02-07 05:07] LABS: BASOPHILS # (AUTO) 0.1 T/MM3 (0-0.2); BASOPHILS % (AUTO) 2.3 % (0-2); EOSINOPHILS # (AUTO) 0.4 T/MM3 (0-0.5); EOSINOPHILS % (AUTO) 7.1 % (0-4); HCT - HEMATOCRIT 35.4 % (41-53); HGB - HEMOGLOBIN 11.3 GM/DL (13.5-17.5); IMMATURE GRANULOCYTE # (AUTO) 0.02 T/MM3 (0.00-0.03); IMMATURE GRANULOCYTE % (AUTO) 0.4 % (0.0-0.5); LYMPHOCYTES # (AUTO) 1.4 T/MM3 (1-4.8); LYMPHOCYTES % (AUTO) 27.3 % (23-45); MEAN CORPUSCULAR HGB CONC(MCHC 31.9 GM/DL (31-37); MEAN CORPUSCULAR VOLUME 90.8 UM3 (80-100); MEAN PLATELET VOLUME 8.6 UM3 (9.4-12.4); MONOCYTES # (AUTO) 0.7 T/MM3 (0-0.8); MONOCYTES % (AUTO) 13.8 % (0-9.0); NEUTROPHILS #(AUTO)-ABSOLUTE 2.6 T/MM3 (1.8-7.7); NEUTROPHILS % (AUTO) 49.1 % (33-66); WBC - WHITE BLOOD COUNT 5.2 T/MM3 (4.5-11.0)
[2017-02-07 05:26] LABS: ANION GAP 12 MEQ/L (5-15); BUN/CREATININE RATIO 19 RATIO (6-26); CHLORIDE 105 MEQ/L (98-107); CO2 - CARBON DIOXIDE 25 MEQ/L (22-30); CREATININE 0.8 MG/DL (0.8-1.5); POTASSIUM 4.5 MEQ/L (3.6-5); SODIUM 142 MEQ/L (134-144)
[2017-02-07 05:27] LABS: CALCIUM 9.1 MG/DL (8.4-10.2); GLOMERULAR FILTRATION RATE 98; GLUCOSE 101 MG/DL (75-110)
--- NOTE | 2017-02-07 06:50 | NUR ---
SHIFT SUMMARY Patient has been in his bed all shift except to get up to use bathroom. He is able to make needs known. Staff use communication board to convey info and converse with Malcolm. He is a man of few words. Takes meds whole with water. Has lozenges that he needs cued to suck on. Family visited around bedtime and he seemed to enjoy that. They wondered when he would be leaving. Message left with ISAIAH.
[2017-02-07 07:00] VITALS: BP 99/68; PULSE 114; RESP 16; TEMP 97.5; O2SAT 97
[2017-02-07] MEDS: ACYCLOVIR 200 MG CAPSULE PO SCH ×5 (07:07→21:44)
[2017-02-07] MEDS: CLOTRIMAZOLE 10 MG TROCHE PO SCH ×5 (07:07→21:44)
[2017-02-07] MEDS: BUDESONIDE/FORMOTEROL 80/4.5mcg INHALER ORAL INH PRN (07:42)
[2017-02-07 08:00] VITALS: PULSE 90; RESP 16
[2017-02-07] MEDS: SERTRALINE 25 MG TABLET PO SCH (08:24)
[2017-02-07] MEDS: DOCUSATE SODIUM 100 MG CAPSULE PO SCH ×2 (08:24→21:45)
[2017-02-07] MEDS: LEVETIRACETAM 500 MG TABLET PO SCH ×2 (08:24→21:45)
[2017-02-07] MEDS: TAMSULOSIN 0.4 MG CAPSULE PO SCH ×2 (08:24→21:45)
[2017-02-07] MEDS: POLYETHYL.GLYCOL 3350 PACKET 17gm PO SCH (08:27)
[2017-02-07] MEDS: CEFTRIAXONE 2 G in NORMAL SALINE 100 ML IV SCH (11:03)
--- NOTE | 2017-02-07 11:35 | STDAILYN ---
ST Daily Note Date/Time DATE: 02/07/17 TIME: 11:27 Subjective Comment Malcolm was seen in the dining room. He had no complaints of pain or fatigue this morning. When discussing his plan after leaving the hospital he reported he would be happy to go home. Orientations: x 3, Alert, Cooperative Chief Complaint: bacterial meningitis, post craniotomy, hearing loss, aphasia. Pain: No *Speech Therapy Impressions Pt has met his goal for dysphagia and is eating a regular diet /regular liquids with no difficulty. He formulated connected sentences fluently with 1 paraphasia noted in 30 minutes. Pt participated in conversation with communication partner typing on laptop or writing on white board (large print). Connected speech was intelligible but loud. Further therapy should include regulation of volume. Pt completed problem solving tasks with 90% accuracy. Significant improvement noted in speech and swallowing. ST Treatment Plan: Communication Retraining ST Treatment Plan Frequency: five times per week Treatment Plan Duration: three weeks Plan of Care Comment: Continue POC Start Treatment 1: 08:50 Stop Treatment 1: 09:50 Treatment Duration : ST Treatment Charge: Speech Treatment Minutes of Individual Therapy: 60 ST FIM Comprehension Ability: 5 Supervision/Setup Social Interaction: 6 Modified [place] Problem Solvin Supervision/Setup Memory: 6 Modified [place] Expression Ability: 6 Modified [place] Swallowin Modified [place] RAAD VARMA MS CCC-EXTERMINATION SUPERVISOR February 07, 2017 11:34
--- NOTE | 2017-02-07 15:17 | NUR ---
CM CM IN TO VISIT WITH PT. USES WHITEBOARD TO COMMUNICATE. CM INQUIRES IF PT WOULD LIKE TO DO IV ABX AT [facility] OR AT HOME WITH [facility]. PT DEFERS TO HIS . CM VISITS WITH SPOUSE, HOLLIE. SHE WOULD LIKE CM TO CHECK ON MAR OF HOME ABX WITH [facility]. DONTE SPOKE WITH RENE FROM [facility] VIA TELEPHONE AND FAXED INFORMATION ON PT.
[2017-02-07 15:53] VITALS: BP 117/73; PULSE 89; RESP 16; TEMP 96.4; O2SAT 96
--- NOTE | 2017-02-07 17:42 | PNPDOC ---
IRU Subjective Date DATE: 02/07/17 TIME: 17:41 IRU Objective Vital Signs Vital signs Vital Signs Date Time Temp Pulse Resp B/P Pulse Ox O2 Delivery O2 Flow Rate FiO2 02/07/17 15:53 96.4 89 16 117/73 96 Room Air Height (Feet): 5 Height (Inches): 10.00 Weight (Kilograms): 80.000 Laboratory Laboratory Laboratory Tests Test 02/07/17 04:14 White Blood Count 5.2T/MM3 Red Blood Count 3.90M/MM3 Hemoglobin 11.3GM/DL Hematocrit 35.4% Mean Corpuscular Volume 90.8UM3 Mean Corpuscular Hemoglobin 29.0UUG Mean Corpuscular Hemoglobin Concent 31.9GM/DL RDW Standard Deviation 43.2FL Platelet Count 436T/MM3 Mean Platelet Volume 8.6UM3 Immature Granulocyte % (Auto) 0.4% Neutrophils (%) (Auto) 49.1% Lymphocytes (%) (Auto) 27.3% Monocytes (%) (Auto) 13.8% Eosinophils (%) (Auto) 7.1% Basophils (%) (Auto) 2.3% Absolute Immature Granulocyte (auto 0.02T/MM3 Absolute Neutrophils (auto) 2.6T/MM3 Absolute Lymphocytes (auto) 1.4T/MM3 Absolute Monocytes (auto) 0.7T/MM3 Absolute Eosinophils (auto) 0.4T/MM3 Absolute Basophils (auto) 0.1T/MM3 Turbidity < 20 Sodium Level 142MEQ/L Potassium Level 4.5MEQ/L Chloride Level 105MEQ/L Carbon Dioxide Level 25MEQ/L Anion Gap 12MEQ/L Blood Urea Nitrogen 15.0MG/DL Creatinine 0.8MG/DL Glomerular Filtration Rate Calc 98 BUN/Creatinine Ratio 19RATIO Glucose Level 101MG/DL Calculated Osmolality 274MOSM/KG Calcium Level 9.1MG/DL Icterus Index < 2 Chemistry Specimen Hemolysis < 15 Assessment & Plan Problems: (1) Myopathy Assessment & Plan: Improved strength and stamina. Balance also improving. Safety is still an issue. Continue PT and OT. (2) Hearing loss Status: Acute Assessment & Plan: Using whiteboard to communicate, occupational therapy is working on this with him (3) Pneumococcal meningitis Status: Acute Assessment & Plan: Management medical (4) Urinary retention Status: Acute Assessment & Plan: Managed by medical (5) Non Hodgkin's lymphoma Status: Chronic Qualifiers: Non-Hodgkin lymphoma type: B-cell Lymphoma site: unspecified region Assessment & Plan: Patient to resume chemotherapy on discharge Code Status Full Code Interventions to Obtain Goals PT Treatment Plan: Therapeutic Exercise, Gait Training, Functional Activities , Patient/Family Education, Balance/Proprioception OT Treatment Plan: ADL's (basic care), Cognitive Skills Develop., Ther. Exercise for ADL's, UE Functional Training, Balance Training, Pt./Family Education, IADL's ST Treatment Plan: Communication Retraining Hospital Course Summary Disclaimer The hospital course summary below is not to be considered part of the above Progress Note. Hospital Course Summary 01/30/17 Agree with admission to IRU under the care of Dr Barahona for ongoing rehabilitation and strengthening Craniotomy j carlos may be removed on 01/31/17 Ceftriaxone twice a day through 01/30/17. Then decrease to daily through . Appreciated ongoing ID management as per Dr Sotomayor Acute hearing loss is likely secondary to acute meningitis. This may be a chronic defect. EEG completed at [place] did revel some abnormalities, however not seizures. He was placed on Keppra. Continue with urinary cath for urinary retention. is hesitant to have this removed because it was very difficult to replace it. All oncology treatments currently on hold. He has been under the care of Dr Patel. 01/31/17 Incisions have healed well. Will remove craniotomy and abdominal j carlos today, per orders from [place]. Pneumococcal meningitis with osteomyelitis: Continue ceftriaxone 2 g daily through February 27 Herpetic lesions: Continue acyclovir. He may need a prolonged course of acyclovir. Thrush: Continue Mycelex BPH and history of urinary retention: Continue Parker catheter per request. May need urologic consultation. 02/01/17 [place] to his scalp incision and abdominal incision were removed yesterday. Nursing staff plans to go gently clean the scalp incision to remove the scab formation. Herpetic lesions have improved since yesterday. Continue acyclovir, we may need to consider extending the course. If they do not resolve. Continue Mycelex for thrush. Continue ceftriaxone 2 g daily through 02/27/17 for pneumococcal meningitis with osteomyelitis. Consider Parker catheter removal (discussed with prior to discontinuation, since patient was very difficult to catheterize), or urologic consult. 02/03: [place]. 1. Pneumococcal meningitis with osteomyelitis and leukocytosis: * J Carlos to scalp incision and abdominal incision were removed on 01/31. Incision sites are clean, dry and intact. Continue to monitor incisions closely for signs of infection. * Continue ceftriaxone 2 g daily through 02/27/17 for pneumococcal meningitis with osteomyelitis * Recheck CBC and BMP in AM to monitor blood counts, electrolytes and renal function in AM. * Recheck CRP on 02/04 to monitor osteomyelitis 2. Herpes Labialis * Herpetic lesions remain but reportedly are improving. Continue acyclovir - we may need to consider extending the course if lesions do not resolve. 3. Non-Hodgkin Lymphoma * Monitor as outpatient. 4. Asthma * Continue to inhalers as directed. 5. BPH with acute urinary retention * Parker placed on 01/26 due to retention. * Consider Parker catheter removal (discuss with prior to discontinuation, since patient was very difficult to catheterize), or urologic consult. * Continue flomax for BPH. 6. Thrush * Continue Mycelex for thrush. * * 02/05/17 Continue Ceftriaxone 2 g daily through 02/27/17 for pneumococcal meningitis with osteomyelitis. Appreciate ongoing recommendations by Dr Sotomayor. Continue acyclovir for treatment of oral herpes Parker cath remains intact due to urinary retention. Continue Flomax. Continue to monitor routine labs. Encourage work with PT and OT for ongoing strengthening SHEYLA BARAHONA MD February 07, 2017 17:42
--- NOTE | 2017-02-07 18:50 | NUR ---
Shift Summary Patient alert and oriented x3. Communicating verbally after reading notes written on dry erase board. Patient talkative today. Patient is anticipating going home tomorrow. Using FWW, gait belt stand by assist for ambulation. Transfers with stand by assist. PICC line to right upper extremity, all ports flushing well. Denies pain this shift. Chang with clear yellow urine to leg bag. Staff manages chang.
[2017-02-07 19:28] VITALS: BP 117/67; PULSE 88; TEMP 98.2; O2SAT 98
[2017-02-07] MEDS: QUETIAPINE 25 MG TABLET PO PRN (21:44)
[2017-02-08] MEDS: CLOTRIMAZOLE 10 MG TROCHE PO SCH ×2 (07:04→10:24)
[2017-02-08] MEDS: ACYCLOVIR 200 MG CAPSULE PO SCH ×2 (07:04→10:24)
--- NOTE | 2017-02-08 07:36 | NUR ---
SHIFT SUMMARY Malcolm has remained in his bed the entire shift. Staff visited with him using dry [place] board re: upcoming d/c. He seemed surprised and did not remember that he was leaving though he had been told during the day yesterday. Over 2200 out in [place] this shift. He takes meds whole with water. PICC flushed with NS and Heparin per orders. Denies pain or needs at this time.
[2017-02-08 08:00] VITALS: BP 107/72; PULSE 92; RESP 12; TEMP 97.4; O2SAT 96
--- NOTE | 2017-02-08 08:09 | NUR ---
CM PER PHONE CONVERSATION WITH RENE [place] [place]. HOME IV ABX WILL BE COVERED AT 100% SINCE PT HAS MET ALL DEDUCTIBLES AND CO-PAY AMOUNTS FOR HIS POLICY.
[2017-02-08] MEDS: DOCUSATE SODIUM 100 MG CAPSULE PO SCH (08:17)
[2017-02-08] MEDS: POLYETHYL.GLYCOL 3350 PACKET 17gm PO SCH (08:17)
[2017-02-08] MEDS: SERTRALINE 25 MG TABLET PO SCH (08:17)
[2017-02-08] MEDS: LEVETIRACETAM 500 MG TABLET PO SCH (08:18)
[2017-02-08] MEDS: TAMSULOSIN 0.4 MG CAPSULE PO SCH (08:18)
--- NOTE | 2017-02-08 09:36 | NUR ---
DONTE CM LEFT VM FOR PT TO RETURN CALL TO HER RE: HOME IV ABX. ORDERS AND ADDITIONAL INFORMATION ARE FAXED TO RENE AT [facility].
[2017-02-08] MEDS ORDERED: LEVE500T9 PO (09:57)
[2017-02-08] MEDS ORDERED: CEFA1VIA10 IV (09:57)
[2017-02-08] MEDS ORDERED: TAMS-1 PO (09:57)
[2017-02-08] MEDS ORDERED: POLY17PO18 PO (09:57)
[2017-02-08] MEDS ORDERED: SERT25TA5 PO (09:57)
[2017-02-08] MEDS ORDERED: QUET25TA PO (09:57)
[2017-02-08] MEDS: CEFTRIAXONE 2 G in NORMAL SALINE 100 ML IV SCH (10:14)
--- NOTE | 2017-02-08 11:23 | NUR ---
DONTE KENT SPOKE WITH PT SPOUSE, HOLLIE, VIA TELEPHONE P#[phone]. SHE IS MADE AWARE THAT IV ABX WOULD BE COVERED AT 100%. SHE WOULD LIKE TO HAVE PT DC HOME WITH [facility] AND IV ABX FROM [facility]. SHE WOULD LIKE RENE FROM [facility] TO CONTACT HER ABOUT SETTING UP A TIME TO DO TEACHING. DONTE SPOKE WITH RENE FROM [facility] VIA TELEPHONE TO LET HER KNOW THAT FAMILY WOULD LIKE TO PROCEED WITH HOME IV ABX. SHE IS GIVEN HOLLIE'S CONTACT INFORMATION. Addendum: 02/08/17 at 1125 by RICHELLE LINDSEY RN Amended: Links added.
--- NOTE | 2017-02-08 13:56 | NUR ---
Shift summary/discharge Patient ambulating with FWW, gait belt, stand by assist. Transfers with stand by assist. Chang to leg bag draining clear yellow urine. Hearing very poor. Communicating with him via dry erase board. Patient able to verbalize. PICC to right upper extremity for antibiotic infusion. All 3 ports flushing and aspirating well. Takes medications whole without problems. Wears glasses. Continent. Discharge Patient discharged home with his today. Chang remained in, education provided to for chang care and to follow up with his urologist. Information given on his hospital follow up appointments to patient and his . Discussed home medication with and called prescriptions for Seroquel, Flomax, Zoloft and Keppra to [facility] pharmacy at spouse request. Soquel here to educate on IV medication admin. Discharge information and education given to patient and . Verbalized understanding of discharge instructions. Staff assisted to vehicle with patient belongings. Patient escorted via w/c to ER entrance and assisted in private vehicle and transported home in good condition by .
--- NOTE | 2017-02-09 10:30 | NUR ---
DONTE THIS WORKER SPOKE TO [facility]. PROVIDED ADDITIONAL CONTACT INFORMATION FOR PT/SPOUSE HOME HEALTH NURSE HAS NOT BEEN ABLE TO REACH THE PT BY PHONE.
--- NOTE | 2017-02-11 12:43 | STDAILYN ---
Discharge Note Date/Time DATE: 02/11/17 TIME: 12:39 Discharge From: Inpatient ST Reason for Discharge: All Goals Met Discharge Destination: Home (with Home Health) Discharge Summary: Pt was discharge from IRU on regular diet with regular liquids and no significant aspiration risk. Communication goals were modified from verbal comprehension to written comprehension secondary to hearing loss. 1. Pt will name words independently with 9/10 accuracy. Goal met. 2. Pt will formulate phrases/sentences to describe activity with 9/10 accuracy. Goal met 3. Pt will follow one step verbal direction with 9/10 accuracy. Pt followed 2-3 step written directions with 90% accuracy. 4. Pt will read short paragraph and answer questions with 9/10 accuracy. Goal met. Pt used his lap top and white board to communicate with staff, visitors and family. Recommended Follow-up: Contact Dept. prn/as inst Discharge Followup Comments: . Out patient speech is available as needed. RAAD VARMA MS CCC-CHANNEL DIRECTOR February 11, 2017 12:42
--- NOTE | 2017-02-12 14:43 | NUR ---
ATTEMPTED POST HOSPITAL FOLLOW UP PHONE CALL #1, NO ANSWER, LEFT VOICE MESSAGE TO RETURN CALL TO CM.
--- NOTE | 2017-02-18 13:36 | DSPDOC ---
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 Infection cultured and pneumococcus was grown. He has hearing loss and required bilat frontal craniotomy. He is also being treated for Nonhodgkins Lymphoma. Unable to maintain adl's due to weakness and communication issues. Requiring IRU admission for PT,OT adn Speech. Hospital Course 01/30/17 Agree with admission to IRU under the care of Dr Barahona for ongoing rehabilitation and strengthening Craniotomy jeff may be removed on 01/31/17 Ceftriaxone twice a day through 01/30/17. Then decrease to daily through . Appreciated ongoing ID management as per Dr Sotomayor Acute hearing loss is likely secondary to acute meningitis. This may be a chronic defect. EEG completed at [place] did revel some abnormalities, however not seizures. He was placed on Keppra. Continue with urinary cath for urinary retention. is hesitant to have this removed because it was very difficult to replace it. All oncology treatments currently on hold. He has been under the care of Dr Patel. 01/31/17 Incisions have healed well. Will remove craniotomy and abdominal jeff today, per orders from [place]. Pneumococcal meningitis with osteomyelitis: Continue ceftriaxone 2 g daily through February 27 Herpetic lesions: Continue acyclovir. He may need a prolonged course of acyclovir. Thrush: Continue Mycelex BPH and history of urinary retention: Continue Parker catheter per request. May need urologic consultation. 02/01/17 Jeff to his scalp incision and abdominal incision were removed yesterday. Nursing staff plans to go gently clean the scalp incision to remove the scab formation. Herpetic lesions have improved since yesterday. Continue acyclovir, we may need to consider extending the course. If they do not resolve. Continue Mycelex for thrush. Continue ceftriaxone 2 g daily through 02/27/17 for pneumococcal meningitis with osteomyelitis. Consider Parker catheter removal (discussed with prior to discontinuation, since patient was very difficult to catheterize), or urologic consult. 02/03: [place]. 1. Pneumococcal meningitis with osteomyelitis and leukocytosis: * [place] to scalp incision and abdominal incision were removed on 01/31. Incision sites are clean, dry and intact. Continue to monitor incisions closely for signs of infection. * Continue ceftriaxone 2 g daily through 02/27/17 for pneumococcal meningitis with osteomyelitis * Recheck CBC and BMP in AM to monitor blood counts, electrolytes and renal function in AM. * Recheck CRP on 02/04 to monitor osteomyelitis 2. Herpes Labialis * Herpetic lesions remain but reportedly are improving. Continue acyclovir - we may need to consider extending the course if lesions do not resolve. 3. Non-Hodgkin Lymphoma * Monitor as outpatient. 4. Asthma * Continue to inhalers as directed. 5. BPH with acute urinary retention * Parker placed on 01/26 due to retention. * Consider Parker catheter removal (discuss with prior to discontinuation, since patient was very difficult to catheterize), or urologic consult. * Continue flomax for BPH. 6. Thrush * Continue Mycelex for thrush. * * 02/05/17 Continue Ceftriaxone 2 g daily through 02/27/17 for pneumococcal meningitis with osteomyelitis. Appreciate ongoing recommendations by Dr Sotomayor. Continue acyclovir for treatment of oral herpes Parker cath remains intact due to urinary retention. Continue Flomax. Continue to monitor routine labs. Encourage work with PT and OT for ongoing strengthening 02/08/17 Pt admitted to IRU for PT and OT treatment. He was treated with rocephin 2g daily and will be discharged continuing daily dose for 3 more weeks. Home health consulted and will follow with patient. Follow up visits ordered. Claudy Barahona MD Problems: (1) Pneumococcal meningitis Status: Acute (2) Osteomyelitis Status: Acute Assessment & Plan: Posterior table of the right frontal sinus and posterior wall of the maxilla; bifrontal craniotomy with cranialization of the frontal sinuses on 01/[address] 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 (9) BPH (benign prostatic hyperplasia) Status: Chronic (10) Herpes labialis Status: Acute (11) Hearing loss Status: Acute Code Status Full Code Home Meds Active Scripts Polyethylene Glycol 3350 (Healthylax) 17 Gm Powd.pack, 17 G PO DAILY for 30 Days Prov:TAWANNA MORALES APRN 02/08/17 Cefazolin Sodium (Cefazolin Sodium) 1 Gm Vial, 2 GM IV DAILY for 18 Days Prov:TAWANNA MORALES APRN 02/08/17 Sertraline (Sertraline) 25 Mg Tablet, 25 MG PO DAILY for 30 Days, #30 TAB Prov:TAWANNA MORALES APRN 02/08/17 Quetiapine Fumarate (Seroquel) 25 Mg Tablet, 25 MG PO HS Y for PRN ORDERS for 30 Days, #30 TAB Take 1 tablet, by mouth, once a day at bedtime. Prov:TAWANNA MORALES APRN 02/08/17 Levetiracetam (Keppra) 500 Mg Tablet, 1 TAB PO BID, #180 TAB 3 Refills Prov:TAWANNA MORALES APRN 02/08/17 Tamsulosin HCl (Flomax) 0.4 Mg Capsule, 0.4 MG PO BID for 30 Days, #60 CAP Take 1 capsule, by mouth, twice daily Prov:TAWANNA MORALES APRN 02/08/17 Reported Medications Docusate Sodium (Docusate Sodium) 100 Mg Capsule, 1 CAP PO BID, #30 CAP 01/29/17 Budesonide/Formoterol Fumarate (Symbicort 80-4.5 Mcg Inhaler) 60 Puff/Inhaler Inhaler, 2 PUFF INH BID Y for DYSPEPSIA, #10.2 GM 5 Refills 09/02/16 Face to Face Encounter I met with patient on the day of dismissal and discussed follow up appointments , medications, and safety plan. Discharge Disposition Home with [facility] CLAUDY BARAHONA MD February 18, 2017 13:36
--- NOTE | 2017-02-18 15:00 | NUR ---
CM FOLLOW UP CALL ATTEMPTED LEFT 2ND MESSAGE WITH PT, ASKING FOR A RETURN CALL. CALLED DAVID [facility]; SHE SAID KEN WENT OUT TODAY TO CHANGE DRESSING, AND WOUND CARE APPOINTMENT IS TOMORROW. SHE SAID SHE WILL LET THIS WORKER KNOW IF THERE ARE ANY PROBLEMS.
--- NOTE | 2017-02-20 16:45 | NUR ---
CM FOLLOW UP CALL ATTEMPT 3RD AND FINAL MESSAGE LEFT WITH PT. Addendum: 02/20/17 at 1646 by ELI COLON Amended: Links added.
== END 2017-02-08 13:56 | disposition home health service (06) | DRG 91 ==
PROVIDERS: ADMIT Family Medicine; ATTEND Family Medicine
PROC: F07Z9FZ Gait Training/Functional Ambulation Treatment using Assistive, Adaptive, Supportive or Protective Equipment (ICD-10-PCS; principal; 2017-01-29)
PROC: F07M6ZZ Therapeutic Exercise Treatment of Musculoskeletal System - Whole Body (ICD-10-PCS; 2017-01-29)
PROC: F08Z4ZZ Home Management Treatment (ICD-10-PCS; 2017-01-29)
DX: G72.9 Myopathy, unspecified (principal); G00.1 Pneumococcal meningitis; M86.18 Other acute osteomyelitis, other site; C85.19 Unspecified B-cell lymphoma, extranodal and solid organ sites; R53.1 Weakness; Z48.89 Encounter for other specified surgical aftercare; H91.90 Unspecified hearing loss, unspecified ear; R33.9 Retention of urine, unspecified; J45.909 Unspecified asthma, uncomplicated; N40.0 Benign prostatic hyperplasia without lower urinary tract symptoms; B00.1 Herpesviral vesicular dermatitis; D47.3 Essential (hemorrhagic) thrombocythemia; R13.10 Dysphagia, unspecified; R41.82 Altered mental status, unspecified; Z98.890 Other specified postprocedural states; Z79.4 Long term (current) use of insulin
CPT/HCPCS: 36415; 80048; 85025; 86140; 94640

== ENCOUNTER → 2017-02-11 | Outpatient (CLI) | payer BC ==
[~2017-02-11] MED LIST changes: -BENZ100C97 PO; +CEFA1VIA10 IV; -CODE118S2 PO; +DOCU-175 PO; -HYDR-4246 PO; -IBUP-2067 PO; -IBUP200C62 PO; +LEVE500T9 PO; -MINO100C2 PO; -OMEG-15 PO; +POLY17PO18 PO; -POLY17PO6 PO; +QUET25TA PO; +SERT25TA5 PO
[2017-02-11 11:48] LABS: BASOPHILS # (AUTO) 0.1 T/MM3 (0-0.2); BASOPHILS % (AUTO) 3.3 % (0-2); EOSINOPHILS # (AUTO) 0.3 T/MM3 (0-0.5); EOSINOPHILS % (AUTO) 15.6 % (0-4); HCT - HEMATOCRIT 36.2 % (41-53); HGB - HEMOGLOBIN 11.2 GM/DL (13.5-17.5); IMMATURE GRANULOCYTE # (AUTO) 0.01 T/MM3 (0.00-0.03); IMMATURE GRANULOCYTE % (AUTO) 0.5 % (0.0-0.5); LYMPHOCYTES # (AUTO) 1.1 T/MM3 (1-4.8); LYMPHOCYTES % (AUTO) 50.5 % (23-45); MEAN CORPUSCULAR HGB 28.6 UUG (26-34); MEAN CORPUSCULAR HGB CONC(MCHC 30.9 GM/DL (31-37); MEAN CORPUSCULAR VOLUME 92.3 UM3 (80-100); MEAN PLATELET VOLUME 8.6 UM3 (9.4-12.4); MONOCYTES # (AUTO) 0.6 T/MM3 (0-0.8); MONOCYTES % (AUTO) 28.8 % (0-9.0); NEUTROPHILS % (AUTO) 1.3 % (33-66); RED BLOOD COUNT 3.92 M/MM3 (4.50-5.90); WBC - WHITE BLOOD COUNT 2.1 T/MM3 (4.5-11.0)
[2017-02-11 11:59] LABS: ANION GAP 12 MEQ/L (5-15); BUN/CREATININE RATIO 20 RATIO (6-26); CALCIUM 8.8 MG/DL (8.4-10.2); CHLORIDE 109 MEQ/L (98-107); CO2 - CARBON DIOXIDE 25 MEQ/L (22-30); CREATININE 0.8 MG/DL (0.8-1.5); GLOMERULAR FILTRATION RATE 98; GLUCOSE 108 MG/DL (75-110); POTASSIUM 3.6 MEQ/L (3.6-5); SODIUM 146 MEQ/L (134-144)
== END ==
LOC: LABN.NHH 11:35
PROVIDERS: ATTEND Family Medicine
DX: G00.9 Bacterial meningitis, unspecified (principal); M86.18 Other acute osteomyelitis, other site
CPT/HCPCS: 80048; 85025

== ENCOUNTER → 2017-02-18 | Outpatient (CLI) | payer BC ==
[2017-02-18 09:54] LABS: HCT - HEMATOCRIT 39.1 % (41-53); HGB - HEMOGLOBIN 12.5 GM/DL (13.5-17.5); MEAN CORPUSCULAR VOLUME 90.7 UM3 (80-100); MEAN PLATELET VOLUME 8.9 UM3 (9.4-12.4); RED BLOOD COUNT 4.31 M/MM3 (4.50-5.90); WBC - WHITE BLOOD COUNT 4.9 T/MM3 (4.5-11.0)
[2017-02-18 10:03] LABS: ANION GAP 13 MEQ/L (5-15); BUN/CREATININE RATIO 19 RATIO (6-26); CALCIUM 9.1 MG/DL (8.4-10.2); CHLORIDE 109 MEQ/L (98-107); CO2 - CARBON DIOXIDE 25 MEQ/L (22-30); CREATININE 0.8 MG/DL (0.8-1.5); GLOMERULAR FILTRATION RATE 98; GLUCOSE 102 MG/DL (75-110); POTASSIUM 4.2 MEQ/L (3.6-5); SODIUM 147 MEQ/L (134-144)
[2017-02-18 10:56] LABS: BAND NEUTROPHILS # 0.2 T/MM3; EOSINOPHILS # (MANUAL) 0.7 T/MM3 (0-0.5); LYMPHOCYTES # (MANUAL) 2.2 T/MM3 (1-4.8); METAMYELOCYTES # 0.1 T/MM3; MONOCYTES # (MANUAL) 0.6 T/MM3 (0-0.8); NEUTROPHILS #(MANUAL)-ABSOLUTE 1.1 T/MM3 (1.8-7.7); TOTAL CELLS COUNTED 100 %
== END ==
LOC: LABN.NHH 09:46
PROVIDERS: ATTEND Family Medicine
DX: M86.18 Other acute osteomyelitis, other site (principal); G00.1 Pneumococcal meningitis; R33.8 Other retention of urine; C85.10 Unspecified B-cell lymphoma, unspecified site
CPT/HCPCS: 80048; 85025

== ENCOUNTER 2017-02-25 18:11 | Emergency (ER) | payer BC ==
[~2017-02-25] VITALS: Ht 177.8 cm; Wt 84.4 kg
[~2017-02-25 18:11] MED LIST changes: -LEVO500T63 PO; -QUET25TA73 PO; -TAMS0.4C47 PO
--- OUTSIDE RECORDS SUMMARY | 2017-02-25 18:17 | XMS REPORT | Continuity of Care Document ---
Author Author [facility] Organization [facility] Address Unknown Phone Unavailable Support Name Relationship Address Phone YOMAIRA CHAUHAN Caregiver [address] [facility] [address] [place] [address] Unavailable SHEYLA BARAHONA MD Caregiver [address] [place] [id number] Unavailable SHEYLA BARAHONA MD Caregiver [address] [place] [id number] Unavailable TOSHA FRANCOIS Next Of Kin [address] [place] [address] [phone] c Insurance Providers Guarantor Vinod Francois Address [address] [place] [address] C Email DENIED-16 [facility] Policy Number [id number] Subscriber's Name Tosha Francois Relationship 01 Spouse Advance Directives Directive Response Recorded Date/Time Ordered Resuscitation Status Full Code 01/29/17 3:58pm Resuscitation Documents on File No 01/29/17 1:06pm DPOA for Healthcare Only No 01/30/17 12:19pm Living Will No 01/29/17 1:06pm Problems Active Problems Medical Problem Onset Date Status Asthma Unknown Chronic BPH (benign prostatic hyperplasia) Unknown Chronic Hearing loss Unknown Acute Herpes labialis Unknown Acute Leukocytosis Unknown Acute Lymphoma of small bowel Unknown Chronic Mass of small intestine Unknown Resolved Myopathy Unknown Non Hodgkin's lymphoma Unknown Chronic Osteomyelitis Unknown Acute Pneumococcal meningitis Unknown Acute Small bowel obstruction Unknown Resolved Thrombocytosis Unknown Acute Urinary retention Unknown Acute Past Problems Medical Problem Onset Date Dehydration Unknown Ileus Unknown Partial obstruction of small intestine Unknown Partial small bowel obstruction Unknown Upper respiratory infection with cough and congestion Unknown Medications Current Home Medications Medication Dose Units Route Directions Days Qty Instructions Start Date Budesonide/Formoterol Fumarate (Symbicort 80-4.5 Mcg Inhaler) 60 Puff/Inhaler Inhaler 2 Puff Inhalation Twice A Day as needed for Dyspepsia 10.2 Gram 09/02/16 Cefazolin Sodium 1 Gm Vial 2 Gm Intraven Daily 18 Days 02/08/17 Docusate Sodium 100 Mg Capsule 1 Cap Oral Twice A Day 30 Capsule Levetiracetam (Keppra) 500 Mg Tablet 1 Tab Oral Twice A Day 180 Tablet 02/08/17 Polyethylene Glycol 3350 (Healthylax) 17 Gm Powd.pack 17 G Oral Daily 30 Days 02/08/17 Quetiapine Fumarate (Seroquel) 25 Mg Tablet 25 Mg Oral Bedtime as needed for Prn Orders 30 Days 30 Tablet Take 1 tablet, by mouth, once a day at bedtime. 02/08/17 Sertraline Hcl (Sertraline) 25 Mg Tablet 25 Mg Oral Daily 30 Days 30 Tablet 02/08/17 Tamsulosin Hcl (Flomax) 0.4 Mg Capsule 0.4 Mg Oral Twice A Day 30 Days 60 Capsule Take 1 capsule, by mouth, twice daily 02/08/17 Past Home Medications Medication Directions Ordered Status Acyclovir 200 Mg Capsule, 1 Cap Oral 5 Times Daily 01/29/17 Discontinued Ceftriaxone Sodium (Ceftriaxone) 2 Gm Vial, 2 Gm Iv Push Every 12 Hours 01/29 Discontinued Clotrimazole 10 Mg Donald, 1 Tab Oral 5 Times Daily 01/29/17 Discontinued Finasteride (Proscar) 5 Mg Tablet, 1 Tab Oral Daily 01/29/17 Discontinued Hydrocodone/Acetaminophen ([place] 5-325 Tablet) 5-325 Tablet, 1-2 Tab Oral Four Times Daily as needed for Pain 09/28/16 Discontinued Insulin Lispro (Humalog) 100 Unit/1 Ml Cartridge, 1 Dose Sub-Q 01/29/17 Discontinued Levetiracetam (Keppra) 500 Mg Tablet, 1 Tab Oral Twice A Day 01/29/17 Discontinued Minocycline Hcl 100 Mg Capsule, 100 Mg Oral Twice A Day 01/05/17 Discontinued Quetiapine Fumarate (Seroquel) 25 Mg Tablet, 25 Mg Oral Bedtime as needed for Prn Orders 01/29/17 Discontinued Sertraline Hcl (Sertraline) 25 Mg Tablet, 25 Mg Oral Daily 01/29/17 Discontinued Tamsulosin Hcl (Flomax) 0.4 Mg Capsule, 0.4 Mg Oral Twice A Day 09/02/16 Discontinued Social History Social History Problem Response Recorded Date/Time Onset Date Status Reason for Hospitalization pneumococcal meningitis with osteomyelitis 2016 11:44am Not Applicable Not Applicable Chewing Tobacco Status No 02/08/2013 12:29am Not Applicable Not Applicable Hx Substance Use No 10/17/2016 9:54am Not Applicable Not Applicable Hx Alcohol Use No 10/17/2016 9:54am Not Applicable Not Applicable Has the pt used tobacco in the last 12 months No 01/29/2017 1:20pm Not Applicable Not Applicable Query Response Start Date Stop Date Smoking Status Never smoker Hospital Discharge Instructions Instructions: Care Instructions: Reason for Hospitalization: pneumococcal meningitis with osteomyelitis I was in the hospital because (patient own words): "to help feel better" Discharge Diet: regular diet Discharge Activity: Activity as tolerated Follow Up Appointments: Dr. Marla Chauhan on 02/18/17 at 10:50 am for Hosp. follow-up. [facility] [address] [place] [address] Alannah White on 03/05/17 at 11:15 am for Post-Op follow-up. [address] [address]. . Pending Lab / Results: No Pending Lab Patient Instructions: Continue to receive Rocephin 2 grams IV daily through home health until 02/27/17. Weekly labs, CBC with differential, BMP each Saturday starting 02/11. These results need to be faxed to Dr. Sotomayor- [phone] Parker catheter will remain intact. Will need to schedule follow-up appointment with urologist as an outpatient to discuss chronic urinary retention. Wound/Incision Care: NONE Pain Management/Treatment: Tylenol as needed for pain control Expected Signs/Symptoms: Continued improvement in strength Notify Physician If: Fevers, chills, confusion During Business Hours:: Please call the physician's office After Business Hours:: Please call physician's office TO have the quilting machine operator page the physician. Condition at time of discharge: Good Plan of Care Discharge Date 02/08/17 1:56pm Disposition 06 HOME HEALTH SERVICE Instructions/Education Provided Parker Catheter Placement and Care (DC) Prescriptions See Medication Section Care Plan and Goals See Discharge Instructions Section Functional Status Query Response Date Recorded Mobility Status Ambulatory w/assist February 08, 2017 11:44am Assistive Devices Front Wheeled Walker February 08, 2017 11:44am Activity Limitations Weakness February 08, 2017 11:44am Feeding Ability Independent February 08, 2017 11:44am Toileting Ability Assist February 07, 2017 12:58pm Grooming Ability Assist February 08, 2017 11:44am Dressing Ability Assist February 08, 2017 11:44am Driving Ability Dependent February 08, 2017 11:44am Housework Ability Dependent February 08, 2017 11:44am Meal Preparation Ability Dependent February 08, 2017 11:44am Stair Climbing Ability Dependent February 08, 2017 11:44am Ability to complete ADL's impeded by Impaired Mobility February 08, 2017 11:44am Cognitive/Perceptual Impairments Impaired vision Acute confusion Imp. 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 Given Pneumococcal conjugate PCV 13 01/30/17 Administered 1 [id number] Pfizer Query Response on File Recorded Date/Time Hx Influenza Vaccination Y 01/201701/29/17 1:20pm Hx Pneumococcal Vaccination Y 01/201701/29/17 1:20pm Hx Influenza Vaccination Y 01/201701/29/17 1:20pm Hx Tetanus Diptheria No 02/08/13 12:29am Influenza Vaccine Hx NONE 01/05/17 4:22pm Vital Signs Acute Vital Signs Vital Response Date/Time Temperature (Fahrenheit) 97.4 deg F (96.8 - 99.1) 02/08/2017 8:00am Temperature (Calculated Celsius) 36.95699 degrees C (36.0 - 37.3) 02/08/2017 8:00am Pulse Rate (adult) 92 bpm (60 - 100) 02/08/2017 8:00am Respiratory Rate 12 breaths/min (10 - 20) 02/08/2017 8:00am O2 Sat by Pulse Oximetry 96 % (90 - 100) 02/08/2017 8:00am Oxygen Delivery Method Room Air 02/08/2017 8:00am Blood Pressure 107/72 mm Hg 02/08/2017 8:00am Blood Pressure Source Automatic Cuff 02/08/2017 8:00am Height (Feet) 5 feet 02/05/2017 4:12pm Height (Inches) 10.00 inches 02/05/2017 4:12pm Weight (Kilograms) 80.000 kg 02/06/2017 11:19am Body Mass Index (BMI) 25.6 01/29/2017 1:03pm Results Laboratory Results Test Name Result Units Flags Reference Collection Date/Time Result Date/ Time Comments Total Bilirubin 0.60 MG/DL 0.20-1.30 11/12/2016 11:11a11/12/2016 11: 26am Alkaline Phosphatase 115 U/L 38-126 11/12/2016 11:11a11/12/2016 11: 26am Total Protein 7.3 G/DL 6.3-8.2 11/12/2016 11:11a11/12/2016 11:26am Albumin 4.3 G/DL 3.5-5.0 11/12/2016 11:11a11/12/2016 11:26am Globulin 3.0 G/DL 2.4-3.6 11/12/2016 11:11a11/12/2016 11:26am Albumin/Globulin Ratio 1.4 RATIO 1.1-2.2 11/12/2016 11:11a11/12/2016 11:26am Aspartate Amino Transf (AST/SGOT) 33 U/L 17-59 11/12/2016 11:11a11/12 11:26am Alanine Aminotransferase (ALT/SGPT) 56 U/L 21-72 11/12/2016 11:11a03/2017 11:26am Lactate Dehydrogenase 390 U/L 313-618 11/12/2016 11:11a11/12/2016 11: 26am Zadp-6-Vesttygpohtov 2.06 mcg/mL 11/12/2016 11:11a11/14/2016 9: 39pm Reference Range: 1.21 - 2.70 Test Performed by: [place] [address] [employer] Instructor: Vick Verma II, M.D., Ph.D. Beta-2 Microglobulin, S performed at [facility], [address] [place] [address] Physician Compensation Analyst Luci Koch MD White Blood Count 5.2 T/MM3 D 4.5-11.0 02/07/2017 4:02/07/2017 5: 17am Red Blood Count 3.90 M/MM3 L 4.50-5.90 02/07/2017 4:02/07/2017 5: 17am Hemoglobin 11.3 GM/DL L 13.5-17.5 02/07/2017 4:02/07/2017 5:17am Hematocrit 35.4 % L 41-53 02/07/2017 4:02/07/2017 5:17am Mean Corpuscular Volume 90.8 UM3 80-100 02/07/2017 4:02/07/2017 5: 17am Mean Corpuscular Hemoglobin 29.0 UUG 26-34 02/07/2017 4:2016 5:17am Mean Corpuscular Hemoglobin Concent 31.9 GM/DL 31-37 02/07/2017 4:02/07/2017 5:17am RDW Standard Deviation 43.2 FL 36.9-50.2 02/07/2017 4:02/07/2017 5 :17am Platelet Count 436 T/MM3 H 130-400 02/07/2017 4:02/07/2017 5:17am Mean Platelet Volume 8.6 UM3 L 9.4-12.4 02/07/2017 4:02/07/2017 5: 17am Neutrophils (%) (Auto) 49.1 % 33-66 02/07/2017 4:02/07/2017 5: 17am Lymphocytes (%) (Auto) 27.3 % 23-45 02/07/2017 4:02/07/2017 5: 17am Monocytes (%) (Auto) 13.8 % H 0-9.0 02/07/2017 4:02/07/2017 5:17am Eosinophils (%) (Auto) 7.1 % H 0-4 02/07/2017 4:02/07/2017 5:17am Basophils (%) (Auto) 2.3 % H 0-2 02/07/2017 4:02/07/2017 5:17am Immature Granulocyte % (Auto) 0.4 % 0.0-0.5 02/07/2017 4:2016 5:17am Absolute Neutrophils (auto) 2.6 T/MM3 1.8-7.7 02/07/2017 4:2016 5:17am Absolute Lymphocytes (auto) 1.4 T/MM3 1-4.8 02/07/2017 4:2016 5:17am Absolute Monocytes (auto) 0.7 T/MM3 0-0.8 02/07/2017 4:02/07/2017 5:17am Absolute Eosinophils (auto) 0.4 T/MM3 0-0.5 02/07/2017 4:2016 5:17am Absolute Basophils (auto) 0.1 T/MM3 0-0.2 02/07/2017 4:02/07/2017 5:17am Absolute Immature Granulocyte (auto 0.02 T/MM3 0.00-0.03 02/07/2017 4: 02/07/2017 5:17am Icterus Index < 2 0-7 02/07/2017 4:02/07/2017 5:26am Chemistry Specimen Hemolysis < 15 0-25 02/07/2017 4:02/07/2017 5 :26am 0-25: Specimen Exhibited No Hemolysis. Turbidity < 20 0-20 02/07/2017 4:02/07/2017 5:26am Sodium Level 142 MEQ/L 134-144 02/07/2017 4:02/07/2017 5:26am Potassium Level 4.5 MEQ/L 3.6-5 02/07/2017 4:02/07/2017 5:26am Chloride Level 105 MEQ/L 98-107 02/07/2017 4:02/07/2017 5:26am Carbon Dioxide Level 25 MEQ/L 22-30 02/07/2017 4:02/07/2017 5: 26am Anion Gap 12 MEQ/L 5-15 02/07/2017 4:02/07/2017 5:26am Blood Urea Nitrogen 15.0 MG/DL 9-20 02/07/2017 4:02/07/2017 5: 26am Creatinine 0.8 MG/DL 0.8-1.5 02/07/2017 4:02/07/2017 5:26am BUN/Creatinine Ratio 19 RATIO 6-02/07/2017 4:14am 02/07/2017 5:26am Glomerular Filtration Rate Calc 98 02/07/2017 4:14am 02/07/2017 5: 27am Glucose Level 101 MG/DL 75-110 02/07/2017 4:14am 02/07/2017 5:27am Calculated Osmolality 274 MOSM/KG 261-280 02/07/2017 4:14am 02/07/2017 5:27am Calcium Level 9.1 MG/DL 8.4-10.2 02/07/2017 4:14am 02/07/2017 5:27am C-Reactive Protein 129.1 MG/L H 0-9 02/04/2017 4:46am 02/04/2017 5:47am Name: VINOD FRANCOIS Unit #: [id number] : 1955 Sex: M Admit Date: 01/29/17 Loc / Svc: IRU Discharge Date: DIAGNOSTIC IMAGING REPORT Report #: [id number] [place], [place] Indication: ITS.REASON: PICC confirmation PROCEDURE: CHEST 1 VIEW: Encounter: Initial Comparison: CT chest dated November 12, 2016 and chest x-ray dated September 02, 2016 Findings: New right PICC line in place with the tip projecting over the lower SVC. Lungs are clear. No pleural effusion or pneumothorax. The heart size, pulmonary vascularity and mediastinal contours are within normal limits. Impression: Right PICC line projects in appropriate position. . Procedures No known history of procedures. Encounters Encounter Location Arrival/Admit Date Discharge/Depart Date Attending Provider Discharged Inpatient [facility] 01/29/17 12:45pm 02/08/17 1:56pm SHEYLA BARAHONA MD Departed Emergency Room [facility] 01/05/17 4:16pm 01/05/17 5: 05pm KAILYN MORRISSEY APRN Registered Clinic [facility] 11/12/16 9:03am BUZZ DENISE MD
[2017-02-25 18:30] VITALS: TEMP 98.2; Ht 177.8 cm; Wt 84.4 kg
[2017-02-25 18:56] LABS: BLOOD, URINE 3+ (NEGATIVE); COLOR,URINE YELLOW (YELLOW); LEUKOCYTE ESTERASE ,URINE 3+ (NEGATIVE); NITRITE,URINE NEGATIVE (NEGATIVE); UROBILINOGEN,URINE 0.2 EU/DL (NORMAL)
[2017-02-25 19:06] LABS: WBC,URINE 20-30 /HPF (0-5); YEAST,URINE 1+ (NEGATIVE)
[2017-02-25 19:07] LABS: BACTERIA,URINE TRACE (NEGATIVE); SQUAMOUS EPITHELIAL CELL,UR NONE SEEN; WBC CLUMPS,URINE FEW
[2017-02-25] MEDS ORDERED: TAMS0.4C47 PO (19:49)
[2017-02-25] MEDS ORDERED: QUET25TA73 PO (19:49)
[2017-02-25] MEDS ORDERED: LEVE500T9 PO (19:49)
[2017-02-25] MEDS ORDERED: SERT25TA5 PO (19:49)
--- NOTE | 2017-02-25 19:55 | ERPDOC ---
Departure Disposition Decision Date: February 25, 2017 Disposition Decision Time: 20:27 Disposition: 01 DISCHARGED HOME, SELF-CARE Impression Impression Impression: Primary Impression: Urinary tract infection associated with catheterization of urinary tract Indwelling urinary catheter type: indwelling urethral catheter Encounter type : initial encounter Qualified Codes: N39.0 - Urinary tract infection, site not specified; T83.511A - Infection and inflammatory reaction due to indwelling urethral catheter, initial encounter Severity: Moderate Condition: Improved Seen By: Physician only Referrals: YOMAIRA RED (Family) Patient Instructions: Catheter-associated Urinary Tract Infection (ED) Problems/Meds/Labs Reviewed?: Yes Medications reviewed and manag: Yes Additional Instructions: Take Levaquin 500 mg, one tablet daily for the next 5 days and to use see your urologist Use [id number] yeast cream such as clotrimazole, apply to the tip of the penis 3 times daily as needed for irritation Follow up care ordered?: Yes Mental Status: Alert HPI - Male General Chief Complaint: Male Urogenital Problems Stated Complaint: BLADDER PAIN Time Seen by Provider: 19:45 Source: patient, family Exam Limitations: no limitations HPI - Male Initial Comments Patient has had indwelling Parker catheter for several weeks after brain surgery. Patient is scheduled to have the catheter removed later this week when he undergoes urologic consultation for outpatient procedure. The past several days the patient has been describing burning and irritation at the tip of the penis, and was sent to the ER by his primary care physician braulio. Occurred At: home Onset: Gradual Severity/Quality: burning Radiation: none Activities at Onset: none Associated Symptoms: DENIES: abdominal pain, diaphoresis, dysuria, fever/chills , loss of bladder control, lower back pain, lumps, mass, nausea/vomiting, nocturia, polyuria, swelling, syncope, urinary frequency Hx of Similar Symptoms: No Allergies: Coded Allergies: NKDA (Verified Allergy, Unknown, 02/25/17) Past History Patient Surgical History Bifrontal craniotomy for cranialization of frontal sinuses with abdominal fat graft-01/19/17 ([facility]pin White). Small bowel resection- revealed non-Hodgkin's lymphoma mass. 10/2016 (John) Past Medical History Respiratory: asthma Male: other (urinary retention) Surgical History General: colonoscopy Surgical History Comments Neurologic surgery after complicated infection secondary to sinusitis Family History Family PMH: FOUND: cancer Vaccines Hx Influenza Vaccination: Yes (01/2017) Hx Pneumococcal Vaccination: Yes (01/2017) Hx Tetanus Diptheria: No Social History Does patient use chewing tobac: No Second Hand Exposure: No Substance Use Type: does not use Alcohol Intake: none Marital Status: Sexuality: female partner Housing: house Review of Systems Constitutional Constitutional: DENIES: appetite decrease, appetite increase, chills, dizziness , fever, weakness ENMT Ears: DENIES: pain Hearing: DENIES: hearing loss, tinnitus Balance: DENIES: vertigo Mouth/Throat: DENIES: change in swallowing, change in voice, hoarsness, painful swallowing, sore throat Cardiovascular Cardiac: DENIES: chest pain, dyspnea on exertion Rhythm/Rate: DENIES: irregular beat, palpitations, tachycardia Vascular: DENIES: pedal edema Pulmonary Respiratory: DENIES: cough, dyspnea, pleuritic chest pain GI Upper Abdomen: DENIES: dysphagia, heartburn/indigestion, nausea, pain, vomiting Lower Abdomen: DENIES: blood in stool, constipation, diarrhea, pain General: DENIES: burning, dysuria, frequency, pain, urgency Comments Pain at the tip of the glans Musculoskeletal General: DENIES: cramps, joint pain, joint swelling, pain, weakness Integumentary Skin: DENIES: rash, sores Neurological General: DENIES: headache, numbness, tingling, vertigo, weakness Physical Exam General General Nourishment: well nourished, well developed, appears stated age, no acute distress General Body Habitus: well groomed Vitals and Pain First Documented Vital Signs Date Time Temp Pulse Resp B/P Pulse Ox O2 Delivery O2 Flow Rate FiO2 02/25/17 18:30 98.2 93 16 125/65 98 Room Air Weight: Kilograms: 84.400 Height (feet): 5 Height (inches): 10.00 Triage Pain Scale: RN VS reviewed by Provider: Yes Normal Exams: Head: Normocephalic w/o trauma Eyes: Pupils are PERRLA w/ EOMI, No scleral icterus, irritation, or foreign bodies noted ENMT: No facial trauma, nasal exudates, pharyngeal erythema, or exudates are noted Neck: Full range of motion, without adenopathy, JVD, bruits or thyromegaly Chest/Resp: Clear all ling, with good airflow, and symmetry bilaterally CV: Regular rate and rhythm, without murmur or gallop, Pulses 2+ all extremities, capillary refill, <2 seconds all ext., no pedal edema noted Abdomen: Bowel sounds positive, soft, non-tender, non-distended, no hepatosplenomegaly, masses or bruits noted Lymphatic: No lymphadenopathy, or lymphedema noted Musculoskeletal: No tenderness, or deformity noted, good range of motion, all extremities Integumentary: No rashes, hives, or bruising noted, hair and nails, without abnormality Neurologic: Patient is alert, and oriented, cranial nerves, motor/sensory/ cerebellar, exams w/o gross deficits, to observation Psychiatric: Patient exhibits, appropriate attention, emotion and affect (brief) Male Brief: FOUND: circumcised, NOT FOUND: deformity, mass, tenderness Comments Erythema around the meatus with indwelling Parker draining well Progress Results/Orders Orders Procedure Category Date Status Time UA, LAB 02/25/17 Complete Dip&Micro(Complete) & 18:41 Fluconazole (Diflucan PHA 02/25/17 Complete 150mg) 20:00 Lidocaine Urojet PHA 02/25/17 Complete (Urojet) 20:00 Levofloxacin PHA 02/25/17 Complete (Levaquin 500 Mg 20:00 Change / Replace Parker NOVA 02/25/17 In Process 19:48 Lab Results Laboratory Tests Test 02/25/17 18:41 Urine Collection Type Parker indwelling Urine Color Yellow Urine Turbidity Sl cloudy Urine pH 5.5 Urine Specific [place] 1.010 Urine Protein Trace Urine Glucose (UA) Negative Urine Ketones Negative Urine Blood 3+ Urine Nitrite Negative Urine Bilirubin Negative Urine Urobilinogen 0.2EU/DL Urine Leukocyte Esterase 3+ Urine RBC 5-10/HPF Urine WBC 20-30/HPF Urine WBC Clumps Few Urine Squamous Epithelial Cells None seen Urine Bacteria Trace Urine Yeast 1+ Urine Culture Indicated Cult not indicated Medications Current ED Medications Fluconazole (DIFLUCAN 150mg) 150 mg O ONCE PO Last administered on 02/25/17 19:59; Start 02/25/17 at 20:00; Stop 02/25/17 at 20:01; Status DC Lidocaine HCl (Urojet) 20 ml O ONCE MM Last administered on 02/25/17 19:59; Start 02/25/17 at 20:00; Stop 02/25/17 at 20:01; Status DC Levofloxacin (LEVAQUIN 500 mg tablet) 500 mg O ONCE PO Last administered on t 19:59; Start 02/25/17 at 20:00; Stop 02/25/17 at 20:01; Status DC Progress Progress Urinalysis shows significant tachycardia urine with red cells white cells and visible bacteria and yeast. Parker catheter will be replaced, patient is started on Levaquin, given Diflucan 1 here, and will use anti-yeast vaginal cream at home around the glans. MARY MIMS MD February 25, 2017 19:54
[2017-02-25] MEDS ORDERED: LEVOFLOXACIN 500 MG TABLET PO ONE (20:00)
[2017-02-25] MEDS ORDERED: LIDOCAINE JELLY 2% 20ml UROJET MM ONE (20:00)
[2017-02-25] MEDS ORDERED: FLUCONAZOLE 150 MG TABLET PO ONE (20:00)
[2017-02-25] MEDS ORDERED: LEVO500T63 PO (20:30)
[2017-02-25 20:31] VITALS: BP 121/65; PULSE 75; RESP 17; O2SAT 96
== END 2017-02-25 20:31 | disposition home or self-care (01) ==
LOC: ED 18:11
DX: T83.511A Infection and inflammatory reaction due to indwelling urethral catheter, initial encounter (principal); N39.0 Urinary tract infection, site not specified; Y73.1 Therapeutic (nonsurgical) and rehabilitative gastroenterology and urology devices associated with adverse incidents; Y92.009 Unspecified place in unspecified non-institutional (private) residence as the place of occurrence of the external cause
CPT/HCPCS: 51702; 81001

== ENCOUNTER → 2017-02-25 | Outpatient (CLI) | payer BC ==
[~2017-02-25] MED LIST changes: +LEVO500T63 PO; +QUET25TA73 PO; +TAMS0.4C47 PO
[2017-02-25 11:39] LABS: BASOPHILS # (AUTO) 0.1 T/MM3 (0-0.2); EOSINOPHILS # (AUTO) 1.2 T/MM3 (0-0.5); EOSINOPHILS % (AUTO) 12.1 % (0-4); HCT - HEMATOCRIT 41.2 % (41-53); HGB - HEMOGLOBIN 13.1 GM/DL (13.5-17.5); IMMATURE GRANULOCYTE # (AUTO) 0.09 T/MM3 (0.00-0.03); IMMATURE GRANULOCYTE % (AUTO) 0.9 % (0.0-0.5); LYMPHOCYTES # (AUTO) 1.6 T/MM3 (1-4.8); LYMPHOCYTES % (AUTO) 15.2 % (23-45); MEAN CORPUSCULAR HGB 28.6 UUG (26-34); MEAN CORPUSCULAR HGB CONC(MCHC 31.8 GM/DL (31-37); MEAN PLATELET VOLUME 9.2 UM3 (9.4-12.4); MONOCYTES # (AUTO) 0.7 T/MM3 (0-0.8); MONOCYTES % (AUTO) 6.8 % (0-9.0); NEUTROPHILS #(AUTO)-ABSOLUTE 6.6 T/MM3 (1.8-7.7); RED BLOOD COUNT 4.58 M/MM3 (4.50-5.90); WBC - WHITE BLOOD COUNT 10.2 T/MM3 (4.5-11.0)
[2017-02-25 11:47] LABS: ALBUMIN 3.7 G/DL (3.5-5.0); ALBUMIN/GLOBULIN RATIO 1.4 RATIO (1.1-2.2); ALKALINE PHOSPHATASE 165 U/L (38-126); ALT (SGPT) 59 U/L (21-72); ANION GAP 15 MEQ/L (5-15); AST (SGOT) 32 U/L (17-59); BUN/CREATININE RATIO 18 RATIO (6-26); CALCIUM 9.3 MG/DL (8.4-10.2); CHLORIDE 109 MEQ/L (98-107); CO2 - CARBON DIOXIDE 23 MEQ/L (22-30); CREATININE 0.8 MG/DL (0.8-1.5); GLOMERULAR FILTRATION RATE 98; GLUCOSE 135 MG/DL (75-110); POTASSIUM 3.8 MEQ/L (3.6-5); SODIUM 147 MEQ/L (134-144); TOTAL PROTEIN 6.3 G/DL (6.3-8.2)
== END ==
LOC: LABN.NHH 11:33
PROVIDERS: ATTEND Family Medicine
DX: M86.18 Other acute osteomyelitis, other site (principal); R33.8 Other retention of urine
CPT/HCPCS: 80053; 85025